=== PATIENT | male | born 1940 | race Caucasian/White ===

== ENCOUNTER 2016-09-08 02:49 | Emergency (ER) | payer OTHER, MEDICARE ==
[~2016-09-08 02:49] MED LIST: ATORVASTATIN CA80 MG PO; BACLOFEN10 M1 PO; BETIMOL 5 ML5 M1 OPH; CEFUROXIME500 MG PO; CIPRO 500MG TA500 MG PO; CIPRO250 M1 PO; CIPRO500 M1 PO; METFORMIN ER500 MG PO; PRINIVIL 5MG5 MG PO; TRIGINTA; VITAMIN D-3
--- NOTE | 2016-09-08 03:09 | ED GI/GU/ABDOMINAL COMPLAINT ---
History of Present Illness General Chief Complaint: Male Genitourinary Problems Stated Complaint: UNABLE TO URINATE HAS TORRES X'S 1 MTH Source: patient Exam Limitations: no limitations Vital Signs & Intake/Output Vital Signs & Intake/Output Vital Signs Date Time Temp Pulse Resp B/P B/P Pulse O2 O2 Flow FiO2 Mean Ox Delivery Rate 09/08 0438 97.0 58 18 135/72 99 Room Air 09/08 0325 142/76 09/08 0259 96.2 53 18 99 Allergies Coded Allergies: NO KNOWN ALLERGIES (01/16/16) Reconcile Medications Atorvastatin Calcium 80 MG TABLET 1 TAB PO DAILY CHOLESTEROL (Reported) Bethanechol Chloride 25 MG TABLET 1 TAB PO TID BLADDER (Reported) Cefuroxime Axetil (Cefuroxime) 500 MG TABLET 1 TAB PO BID urinary tract infection Finasteride 5 MG TABLET 1 TAB PO DAILY BPH (Reported) Linagliptin (Tradjenta) 5 MG TABLET 1 TAB PO DAILY DM (Reported) Metformin HCl 1,000 MG TABLET 1 TAB PO BID DM (Reported) Tamsulosin HCl 0.4 MG CAP.ER.24H 1 CAP PO DAILY BPH (Reported) Timolol Maleate 0.5 % DROPS 1 GTT OPH BID (Reported) Triage Nurses Notes Reviewed? yes Onset: Gradual Duration: hour(s): Timing: single episode today Quality/Severity: cramping Location: suprapubic Radiation: no radiation Activities at Onset: none Prior Abdominal Problems: similar symptoms Modifying Factors: Worsens With: other (unable to urinate). Associated Symptoms: unable to urinate HPI: 76 yo gentleman with indwelling torres presents with feeling of lower abdominal pressure Past History Medical History Any Pertinent Medical History? 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 No Review of Systems Review of Systems Constitutional: Denies: see HPI. EENTM: Reports: no symptoms. Respiratory: Reports: no symptoms. Cardiovascular: Reports: no symptoms. GI: Reports: no symptoms. Genitourinary: Reports: no symptoms. Musculoskeletal: Reports: no symptoms. Skin: Reports: no symptoms. Neurological/Psychological: Reports: no symptoms. Hematologic/Endocrine: Reports: no symptoms. Immunologic/Allergic: Reports: no symptoms. All Other Systems: Reviewed and Negative Physical Exam Physical Exam General Appearance: well developed/nourished, mild distress Head: atraumatic, normal appearance Eyes: Bilateral: normal appearance. Ears, Nose, Throat, Mouth: hearing grossly normal Neck: normal inspection, supple, full range of motion Respiratory: normal breath sounds, chest non-tender, no respiratory distress, quiet respiration, lungs clear Cardiovascular: regular rate/rhythm Gastrointestinal: normal bowel sounds, soft, non-tender, no organomegaly Male Genitals: normal genitalia Back: normal inspection Extremities: normal range of motion Neurologic/Psych: no motor/sensory deficits, awake, alert, oriented x 3 Skin: intact, normal color, warm/dry Core Measures ACS in differential dx? No Severe Sepsis Present: No Septic Shock Present: No Progress Differential Diagnosis: UTI/pyelo, torres issue Plan of Care: Orders Procedure Date/time Status Torres, Insertion/Removal/Asses 09/08 025 Active CULTURE,URINE 09/08 025 Active URINALYSIS 09/08 254 Complete Laboratory Tests 09/08/16 0326: Urine Color YEL, Urine Clarity CLDY H, Urine pH 7.0, Ur Specific [place] 1.020, Urine Protein 30 H, Urine Ketones NEG, Urine Nitrite POS H, Urine Bilirubin NEG, Urine Urobilinogen 0.2, Ur Leukocyte Esterase MOD H, Ur Microscopic SEDIMENT EXAMINED, Urine RBC 25-50 H, Urine WBC 25-50 H, Urine Bacteria MANY H, Urine Hemoglobin LARGE H, Urine Glucose NEG Microbiology 09/08 0326 URINE ROUT: Urine Culture - RECD Initial ED EKG: none Departure Departure Disposition: HOME OR SELF CARE Condition: Stable Clinical Impression Primary Impression: Torres catheter problem Secondary Impressions: UTI (urinary tract infection) Referrals: LIA NASH MD (PCP/Family) Departure Forms: Customer Survey General Discharge Information Prescriptions: Current Visit Scripts Cefuroxime Axetil (Cefuroxime) 1 TAB PO BID #20 TAB Comments discussed at length... pt's torres replaced and is draining freely... pt feels well at discharge and has follow up with dr. kelsey... abx prescribed for infected looking urinalysis.
[2016-09-08] MEDS ORDERED: BETHANECHOL CHL25 M1 PO (03:12)
[2016-09-08] MEDS ORDERED: TIMOLOL MALEATE5 M4 OPH (03:12)
[2016-09-08] MEDS ORDERED: METFORMIN HCL1000 M1 PO (03:13)
[2016-09-08] MEDS ORDERED: FINASTERIDE5 M1 PO (03:13)
[2016-09-08] MEDS ORDERED: TAMSULOSIN HCL0.4 M1 PO (03:13)
[2016-09-08] MEDS ORDERED: ATORVASTATIN CA80 M1 PO (03:13)
[2016-09-08] MEDS ORDERED: TRADJENTA5 M1 PO (03:13)
[2016-09-08] MEDS ORDERED: CEFUROXIME500 MG PO (04:10)
[2016-09-08 04:38] VITALS: BP 135/72
[2016-11-02] MEDS ORDERED: VITAMIN D31000 UNI2 PO (22:15)
[2016-11-02] MEDS ORDERED: BETHANECHOL CHL25 M1 PO (22:15)
[2016-11-02] MEDS ORDERED: BACLOFEN10 M1 PO (22:16)
[2016-11-02] MEDS ORDERED: VITAMIN B-121000 MC3 PO (22:17)
[2016-11-02] MEDS ORDERED: CIPRO500 M1 PO (23:47)
== END 2016-09-08 04:38 ==
LOC: ERH 02:49
DX: T83.098A Other mechanical complication of other urinary catheter, initial encounter (principal); N39.0 Urinary tract infection, site not specified
CPT/HCPCS: 81001; 87086

== ENCOUNTER → 2016-11-03 | Day surgery (SDC) | payer OTHER, MEDICARE ==
[~2016-11-03] VITALS: Ht 180.3 cm; Wt 81.6 kg
[~2016-11-03] MED LIST changes: +ATORVASTATIN CA80 M1 PO; +BETHANECHOL CHL25 M1 PO; +FINASTERIDE5 M1 PO; +METFORMIN HCL1000 M1 PO; +TAMSULOSIN HCL0.4 M1 PO; +TIMOLOL MALEATE5 M4 OPH; +TRADJENTA5 M1 PO; +VITAMIN B-121000 MC3 PO; +VITAMIN D31000 UNI2 PO
--- NOTE | 2016-11-03 08:45 | ED GENERAL ADULT ---
History of Present Illness General Chief Complaint: Male Genitourinary Problems Stated Complaint: CATH LEAKING/DIZZINESS Source: patient, family, old records, PCP Exam Limitations: no limitations Vital Signs & Intake/Output Vital Signs & Intake/Output Vital Signs Date Time Temp Pulse Resp B/P B/P Pulse O2 O2 Flow FiO2 Mean Ox Delivery Rate 11/03 0933 97.2 72 20 117/69 97 Room Air 11/03 0846 95.0 76 18 125/71 96 Room Air Allergies Coded Allergies: NO KNOWN ALLERGIES (01/16/16) Reconcile Medications Atorvastatin Calcium 80 MG TABLET 1 TAB PO DAILY CHOLESTEROL (Reported) Baclofen 10 MG TABLET 1 TAB PO PRN MUSCLE SPASMS (Reported) Bethanechol Chloride 25 MG TABLET 0.5 TAB PO BID BLADDER (Reported) Cholecalciferol (Vitamin D3) 1,000 UNIT TABLET 1 TAB PO DAILY SUPPLEMENT ( Reported) Ciprofloxacin HCl (Cipro) 500 MG TABLET 1 TAB PO BID UTI Cyanocobalamin (Vitamin B-12) (Unknown Strength) TABLET (Unknown Dose) PO DAILY SUPPLEMENT (Reported) Finasteride 5 MG TABLET 1 TAB PO DAILY BPH (Reported) Linagliptin (Tradjenta) 5 MG TABLET 1 TAB PO DAILY DM (Reported) Metformin HCl 1,000 MG TABLET 1 TAB PO BID DM (Reported) Tamsulosin HCl 0.4 MG CAP.ER.24H 1 CAP PO BID BPH (Reported) Timolol Maleate 0.5 % DROPS 1 GTT OPH DAILY BOTH EYES (Reported) Triage Nurses Notes Reviewed? yes HPI: Patient was seen last night with a full catheter problem. The catheter was changed. Patient was sent home. After being at home patient had increasing suprapubic pain and discomfort. The pain is a pressure sensation. There is no radiation. There are no aggravating or mitigating factors. Patient states at 2 AM he also had an episode of substernal chest pain. The pain lasted approximately 3 minutes and then went away on its own. There is no shortness of breath. There is no radiation. There are no aggravating or mitigating factors. Patient called his urologist and was instructed to come to the emergency department for evaluation. Upon arrival to triage he suddenly felt very lightheaded and like he was given a pass out. Patient was sat down and the symptoms all resolved. Patient is currently only complaint is the suprapubic pressure sensation which he rates at 6 out of 10. Past History Medical History Any Pertinent Medical History? 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 No Review of Systems Review of Systems Constitutional: Reports: no symptoms. EENTM: Reports: no symptoms. Respiratory: Reports: no symptoms. Cardiovascular: Reports: see HPI, chest pain. GI: Reports: see HPI, abdominal pain. Genitourinary: Reports: no symptoms. Musculoskeletal: Reports: no symptoms. Skin: Reports: no symptoms. Neurological/Psychological: Reports: no symptoms. Hematologic/Endocrine: Reports: no symptoms. Immunologic/Allergic: Reports: no symptoms. All Other Systems: Reviewed and Negative Physical Exam Physical Exam General Appearance: well developed/nourished, alert, awake, anxious, moderate distress Head: atraumatic Eyes: Bilateral: PERRL, EOMI. Ears, Nose, Throat: normal pharynx, normal ENT inspection Neck: normal inspection, supple, full range of motion Respiratory: normal breath sounds, chest non-tender, no respiratory distress, lungs clear Cardiovascular: regular rate/rhythm, normal peripheral pulses Gastrointestinal: normal bowel sounds, soft, no organomegaly, tenderness ( SUPRAPUBIC) Extremities: normal inspection, normal capillary refill, normal range of motion Neurologic/Psych: no motor/sensory deficits, awake, alert Skin: intact, normal color, warm/dry Core Measures ACS in differential dx? No CVA/TIA Diagnosis: No Severe Sepsis Present: No Septic Shock Present: No Progress Differential Diagnoses I considered the following diagnoses in my evaluation of the patient: [AMI, NEAR SYNCOPE, TORRES CATH PROBLEM] Plan of Care: Orders Procedure Date/time Status Telemetry/Sales Representative Jewelry 11/03 0845 Active TROPONIN LEVEL 11/03 0845 Complete COMPREHENSIVE METABOLIC PANEL 11/03 0845 Complete CBC WITHOUT DIFFERENTIAL 11/03 0845 Complete EKG 11/03 0837 Active Laboratory Tests 11/03/16 0905: Anion Gap 10, Estimated GFR > 60, BUN/Creatinine Ratio 24.4, Glucose 92, Calcium 9.0, Total Bilirubin 0.5, AST 25, ALT 33, Alkaline Phosphatase 85, Troponin I < 0.01, Total Protein 5.7 L, Albumin 3.1 L, Globulin 2.6, Albumin/Globulin Ratio 1.2, CBC w Diff NO MAN DIFF REQ, RBC 4.61 L, MCV 87.7, MCH 29.1, RDW 14.6 H, MPV 7.4, Gran % 78.2 H, Lymphocytes % 10.6 L, Monocytes % 7.8, Eosinophils % 3.3, Basophils % 0.1, Absolute Granulocytes 7.2 H, Absolute Lymphocytes 1.0 L, Absolute Monocytes 0.7 H, Absolute Eosinophils 0.3, Absolute Basophils 0, PUBS MCHC 33.2 Initial ED EKG: NSR, nonspecific ST T wave chg Prior EKG: unchanged Departure Departure Disposition: STILL A PATIENT Condition: Stable Clinical Impression Primary Impression: Torres catheter problem Qualifiers: Encounter type: subsequent encounter Qualified Code: T83.9XXD - Unspecified complication of genitourinary prosthetic device, implant and graft, subsequent encounter Secondary Impressions: Chest pain, unspecified Qualifiers: Chest pain type: unspecified Qualified Code: R07.9 - Chest pain, unspecified Near syncope Referrals: LIA NASH MD (PCP/Family) Departure Forms: Customer Survey General Discharge Information OR/GI Note Spoke With: AGUSTINA PEPE MD ED Treatment Decision: GORDY DUNCAN requires urgent operative management or an emergent procedure that cannot be performed in the Emergency Room setting. Transport To: [facility] Critical Care Note Critical Care Note Critical Care Time: non-applicable
--- NOTE | 2016-11-03 09:19 | Cons- Urology ---
General Information and HPI Consulting Request Date of Consult: 11/03/16 Requested By: md lakeshia, bruce- Reason for Consult: urnary retention Source of Information: patient, family Exam Limitations: no limitations History of Present Illness: 76 year old with dementia, BPH-retention despite TURP: had seen in ER last night with hummel dysfunction: returns today again in severe retention: i am unable to pass hummel at bedside and pt in retention for >12 hours with extreme pain. EMERGENCY cystoscopy necessary for catheter placement and evaluation. Of note, pt with extreme pain at 2am due to retention and reported generalized CP and abd pain-no SOB/NO NV/No rigors. Allergies/Medications Allergies: Coded Allergies: NO KNOWN ALLERGIES (01/16/16) Home Med List: Atorvastatin Calcium 80 MG TABLET 1 TAB PO DAILY CHOLESTEROL (Reported) Baclofen 10 MG TABLET 1 TAB PO PRN MUSCLE SPASMS (Reported) Bethanechol Chloride 25 MG TABLET 0.5 TAB PO BID BLADDER (Reported) Cholecalciferol (Vitamin D3) 1,000 UNIT TABLET 1 TAB PO DAILY SUPPLEMENT ( Reported) Ciprofloxacin HCl (Cipro) 500 MG TABLET 1 TAB PO BID UTI Cyanocobalamin (Vitamin B-12) (Unknown Strength) TABLET (Unknown Dose) PO DAILY SUPPLEMENT (Reported) Finasteride 5 MG TABLET 1 TAB PO DAILY BPH (Reported) Linagliptin (Tradjenta) 5 MG TABLET 1 TAB PO DAILY DM (Reported) Metformin HCl 1,000 MG TABLET 1 TAB PO BID DM (Reported) Tamsulosin HCl 0.4 MG CAP.ER.24H 1 CAP PO BID BPH (Reported) Timolol Maleate 0.5 % DROPS 1 GTT OPH DAILY BOTH EYES (Reported) Past History Medical History Neurological: multiple sclerosis, SHORT TERM MEMORY LOSS EENT: glaucoma, TONSILLECTOMY Cardiovascular: hyperlipidemia Respiratory: NONE Gastrointestinal: NONE Hepatic: NONE Renal: UTI Musculoskeletal: osteoarthritis Psychiatric: NONE Endocrine: diabetes Blood Disorders: NONE Cancer(s): prostate cancer 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 Ambulation: independent IADLs Independent: housework, food prep, telephone, medication admin. Employment History Employment: Retired Retired? yes Review of Systems Review of Systems: n/c x12 except above Review of Systems Constitutional: Denies: no symptoms. EENTM: Denies: no symptoms. Cardiovascular: Reports: see HPI. Respiratory: Denies: no symptoms. GI: Denies: no symptoms. Genitourinary: Reports: discharge, dysuria, hematuria, pain. Musculoskeletal: Denies: no symptoms. Skin: Denies: no symptoms. Hematologic/Endocrine: Denies: no symptoms. Exam & Diagnostic Data Vital Signs and I&O Vital Signs Date Time Temp Pulse Resp B/P B/P Pulse O2 O2 Flow FiO2 Mean Ox Delivery Rate 11/03 0846 95.0 76 18 125/71 96 Room Air Intake & Output 11/03 1600 11/03 0800 11/03 0000 11/02 1600 11/02 0800 11/02 0000 Intake Total Output Total Balance Patient 180 lb Weight Weight Reported by Patient Measurement Method Physical Exam General Appearance: well developed/nourished, severe distress Head: atraumatic Eyes: Bilateral: normal appearance. Ears, Nose, Throat: normal pharynx Neck: normal inspection Respiratory: normal breath sounds Cardiovascular: regular rate/rhythm Gastrointestinal: normal bowel sounds, distention Back: no vertebral tenderness Extremities: normal inspection Skin: intact, normal color, warm/dry Reproductive: Normal male genitalia Last 24 Hours of Labs: Laboratory Tests 11/03 0905 Chemistry Sodium Pending Potassium Pending Chloride Pending Carbon Dioxide Pending Anion Gap Pending BUN Pending Creatinine Pending BUN/Creatinine Ratio Pending Glucose Pending Calcium Pending Total Bilirubin Pending AST Pending ALT Pending Alkaline Phosphatase Pending Troponin I Pending Total Protein Pending Albumin Pending Globulin Pending Albumin/Globulin Ratio Pending Hematology CBC w Diff Pending WBC Pending RBC Pending Hgb Pending Hct Pending MCV Pending MCH Pending RDW Pending Plt Count Pending MPV Pending PUBS MCHC Pending Assessment/Plan Assessment/Plan urinary retention and unable to pass hummel-requires emergency cysto-hummel insert. Copies To: AGUSTINA PEPE MD Consult Acknowledgment - Thank you for your consult request. Attending MD Review Statement Attending Statement Attending MD Statement: examined this patient, discuss w/resident/PA/PHYSICAL THERAPY TECHNICIAN Attending Assessment/Plan: emergency cysto.
[2016-11-03 09:32] LABS: ABSOLUTE BASOPHIL COUNT 0 /CUMM (0.0-0.2); ABSOLUTE EOSINOPHIL COUNT 0.3 /CUMM (0.0-0.7); ABSOLUTE GRANULOCYTE CT 7.2 /CUMM (1.4-6.5); ABSOLUTE MONOCYTE COUNT 0.7 /CUMM (0.10-0.60); BASOPHIL % 0.1 % (0.0-2.0); EOSINOPHIL % 3.3 % (0-5); GRANULOCYTE % 78.2 % (42.2-75.2); HEMATOCRIT 40.5 % (42-52); MEAN CORPUSCULAR HGB 29.1 PG (27.0-31.0); MEAN CORPUSCULAR HGB CONC 33.2 G/DL (33.0-37.0); MEAN CORPUSCULAR VOLUME 87.7 FL (80.0-94.0); MEAN PLATELET VOLUME 7.4 FL (7.4-10.4); PLATELET COUNT 264 /CUMM (130-400); RBC DISTRIBUTION WIDTH 14.6 % (11.5-14.5); RED BLOOD CELL CT 4.61 /CUMM (4.70-6.10); WHITE BLOOD CELL COUNT 9.2 /CUMM (4.8-10.8)
[2016-11-03 09:33] VITALS: BP 117/69
--- NOTE | 2016-11-03 11:29 | Operative Report ---
Operative/Inv Procedure Report Surgery Date: 11/03/16 Name of Procedure: difficult hummel insertion Pre-Operative Diagnosis: catheter dysfunction with retention and Post-Operative Diagnosis: same Estimated Blood Loss: none Surgeon/Lithographic Press Operator Apprentice: MD AGUSTINA PEPE-Urology Anesthesia: general endotracheal tube Drains: 20fr coucil tip hummel Complications: none Operative/Procedure Note Note: The patient was taken to the operative room and placed on the OR table in supine position. Timeout was performed in order to confirm the patient's identity, procedure, anesthesia, antibiotics, as well as any other pertinent information. After adequate anesthesia, and antibiotics, the patient was then placed lithotomy stirrups draped and prepped in the usual surgical fashion. A 22 Citizen [place] cystoscope sheath with a 30 angle lens was inserted into the urethra and advanced into the bladder without difficulty. The bladder was noted to have the findings as discussed above. The bladder was then hydrodistended 2 with the irrigation fluid at 40 cm above the symphysis pubis. No evidence of tumor, increased petechiae, nor Hunner's ulceration was noted. Both ureteral orifices had clear reflux in their orthotopic position. No terminal bleed with drainage. Bladder capacity was normal. The bladder was then drained and the cystoscope was removed under direct visualization. The patient tolerated procedure well and was taken to recovery room in satisfactory condition. Findings: XRT scarred prostate firm: narrow passage Discharge Disposition: PACU CC: AGUSTINA PEPE MD
== END ==
LOC: ERH 08:34 → STS 10:43 → ERH 10:44
PROVIDERS: Emergency Medicine
DX: T83.098A Other mechanical complication of other urinary catheter, initial encounter (principal); R33.8 Other retention of urine; G35 Multiple sclerosis
CPT/HCPCS: 93005; 93010; J0131; J1100; J1170; J2250; J2405; J3010

== ENCOUNTER 2017-11-04 12:45 | Inpatient (IN) | payer OTHER, MEDICARE ==
[~2017-11-04] VITALS: Ht 167.6 cm; Wt 83.0 kg
[~2017-11-04 12:45] MED LIST changes: +AUGMENTIN 875-1 EACH PO; +PYRIDIUM200 M1 PO
--- NOTE | 2017-11-04 13:19 | ED AMS/SEIZURE/WEAK/DIZZY ---
See Addendum History of Present Illness General Chief Complaint: General Adult Stated Complaint: BIBA FOR ?SEPTIC Source: patient Exam Limitations: no limitations Allergies Coded Allergies: NO KNOWN ALLERGIES (01/16/16) Reconcile Medications Amoxicillin/Potassium Clav (Augmentin 875-125 Tablet) 875 MG-125 MG TABLET 1 TAB PO BID UTI Amoxicillin/Potassium Clav (Augmentin 875-125 Tablet) 875 MG-125 MG TABLET 1 TAB PO BID UTI Atorvastatin Calcium 80 MG TABLET 1 TAB PO DAILY CHOLESTEROL (Reported) Baclofen 10 MG TABLET 1 TAB PO PRN MUSCLE SPASMS (Reported) Bethanechol Chloride 25 MG TABLET 0.5 TAB PO BID BLADDER (Reported) Cholecalciferol (Vitamin D3) 1,000 UNIT TABLET 1 TAB PO DAILY SUPPLEMENT ( Reported) Ciprofloxacin HCl (Cipro) 500 MG TABLET 1 TAB PO BID UTI Cyanocobalamin (Vitamin B-12) (Unknown Strength) TABLET (Unknown Dose) PO DAILY SUPPLEMENT (Reported) Finasteride 5 MG TABLET 1 TAB PO DAILY BPH (Reported) Linagliptin (Tradjenta) 5 MG TABLET 1 TAB PO DAILY DM (Reported) Metformin HCl 1,000 MG TABLET 1 TAB PO BID DM (Reported) Phenazopyridine HCl (Pyridium) 200 MG TABLET 1 TAB PO TID PAIN Phenazopyridine HCl (Pyridium) 200 MG TABLET 1 TAB PO TID DYSUIRA Tamsulosin HCl 0.4 MG CAP.ER.24H 1 CAP PO BID BPH (Reported) Timolol Maleate 0.5 % DROPS 1 GTT OPH DAILY BOTH EYES (Reported) Triage Note: RECEIVED 77 YO MALE BIBA FROM HOME WITH HX OF M.S. AND SHORT TERM MEMORY LOSS. ACCORDING TO REPORT, PT HAS BEEN LETHARGIC THE LAST FEW DAYS WITH DECREASED RESPONSIVENESS. PT APPEARS SLEEPY UPON ARRIVAL, RESPONDS TO BASIC QUESTIONS. PT ARRIVES WITH 18 G IN LAC AND RECEIVED 500 ML N/S IV IN FIELD BY PARAMEDICS. Triage Nurses Notes Reviewed? yes Onset: Abrupt Duration: day(s): (2), constant Timing: recent history Injury Environment: home No Modifying Factors: none HPI: 77-year-old male comes into the emergency room for further evaluation of increased weakness. Patient has a history of multiple sclerosis. He had some loose stools today. Profoundly weak to the point where he can't ambulate which is below his normal baseline of function. No reports of fever or vomiting. He denies any chest pain shortness of breath abdominal pain. No recent antibiotics. He was brought in by ambulance for further evaluation (Kyree Scruggs) Vital Signs & Intake/Output Vital Signs & Intake/Output Vital Signs Date Time Temp Pulse Resp B/P B/P Pulse O2 O2 Flow FiO2 Mean Ox Delivery Rate 11/04 1621 97.3 96 18 95/54 93 Room Air 11/04 1517 96 115/57 / 1417 99.9 93 16 88/56 93 Room Air 11/04 1346 92 20 92/61 93 Room Air 11/04 1254 98.8 94 18 99/58 92 Room Air (Shanta GRAHAM,Noah Gupta) Past History Travel History Traveled to [place] past 21 day No Medical History Any Pertinent Medical History? 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 No (Kyree Scruggs) Review of Systems Review of Systems Constitutional: Reports: see HPI. EENTM: Reports: no symptoms. Respiratory: Reports: no symptoms. Cardiovascular: Reports: no symptoms. GI: Reports: see HPI. Genitourinary: Reports: no symptoms. Musculoskeletal: Reports: no symptoms. Skin: Reports: no symptoms. Neurological/Psychological: Reports: see HPI. Hematologic/Endocrine: Reports: no symptoms. Immunologic/Allergic: Reports: no symptoms. All Other Systems: Reviewed and Negative (Kyree Scruggs) Physical Exam Physical Exam General Appearance: alert, awake, lethargic Head: atraumatic Ears, Nose, Throat: normal ENT inspection Neck: normal inspection Respiratory: normal breath sounds, no respiratory distress Cardiovascular: regular rate/rhythm Gastrointestinal: soft, non-tender Extremities: normal range of motion, NO EDEMA Neurologic/Psych: normal gait, normal mood/affect Skin: intact, normal color Core Measures ACS in differential dx? No CVA/TIA Diagnosis No Sepsis Present: No Sepsis Focused Exam Completed? No (Kyree Scruggs) Progress Differential Diagnosis: arrythmia, anemia, benign positional vertigo, CVA/stroke , dehydration, encephalitis, electrolyte imbalance, sepsis, UTI/pyelo, C DIFF Diagnostic Imaging: Viewed by Me: Radiology Read, CT Scan. Discussed w/RAD: Radiology Read, CT Scan. Radiology Impression: PATIENT: GORDY DUNCAN PRESENT AGE: 77 PATIENT ACCOUNT NO: [id number] : 42 LOCATION: [facility] ORDERING PHYSICIAN: Kyree PEREZ SERVICE DATE: 11/04/17 EXAM TYPE : RAD - XRY-PORTABLE CHEST XRAY EXAMINATION: XR PORTABLE CHEST CLINICAL INFORMATION: Weakness and hypotension. COMPARISON: Chest x-ray dated 01/11/2006. TECHNIQUE: Portable AP semierect view of the chest was obtained. FINDINGS: External EKG leads overlie the chest. The cardiomediastinal silhouette is within normal limits in size. Low lung volumes are seen with crowding of bronchovascular markings in the lung bases bilaterally with associated bibasilar atelectatic change. No focal consolidation, effusion, pneumothorax is seen. Bony structures are unremarkable. IMPRESSION: Low lung volumes with bibasilar atelectatic changes. DICTATED BY: Chyna Verdugo MD DATE/TIME DICTATED:1406 GEAR CUTTING MACHINE OPERATOR:STEVE DATE/TIME TRANSCRIBED:11/04/171406 CONFIDENTIAL, DO NOT COPY WITHOUT APPROPRIATE AUTHORIZATION. <Electronically signed in Other Vendor System> SIGNED BY: Chyna Verdugo MD 11/04/17 1413 Initial ED EKG: normal sinus rhythm, rate (92) (Kyree Scruggs) Plan of Care: Orders Procedure Date/time Status Nothing by Mouth 11/05 B Active LACTIC ACID 11/04 1610 Active Misc Message 11/04 1608 Active ED Holding Orders 11/04 1608 Active Admit to inpatient 11/04 1608 Active Vital Signs 11/04 1608 Active Code Status 11/04 1608 Active CULTURE,STOOL 11/04 1422 Active C.DIFFICILE 11/04 1422 Active CULTURE,URINE 11/04 1421 Active BLOOD CULTURE 11/04 1310 Active URINE DRUGS OF ABUSE 11/04 1310 Active URINALYSIS 11/04 1310 Complete TROPONIN LEVEL 11/04 1310 Complete LACTIC ACID 11/04 1310 Complete COMPREHENSIVE METABOLIC PANEL 11/04 1310 Complete CBC WITHOUT DIFFERENTIAL 11/04 131 Complete EKG 11/04 131 Active Laboratory Tests 11/04/17 1600: Urine Color YEL, Urine Clarity TURBD H, Urine pH 8.5 H, Ur Specific Streetman 1.010, Urine Protein 100 H, Urine Ketones NEG, Urine Nitrite POS H, Urine Bilirubin NEG, Urine Urobilinogen 1.0, Ur Leukocyte Esterase LARGE H, Ur Microscopic SEDIMENT EXAMINED, Urine RBC >75 H, Urine WBC 1-3 H, Ur Epithelial Cells RARE, Urine Bacteria PACKD H, Urine Hemoglobin LARGE H, Urine Glucose NEG 11/04/17 1315: Anion Gap 13, Estimated GFR 42 L, BUN/Creatinine Ratio 18.1, Glucose 153 H, Lactic Acid 6.0 H, Calcium 8.9, Total Bilirubin 0.4, AST 114 H, ALT 84 H, Alkaline Phosphatase 76, Troponin I 1.10 *H, Total Protein 5.4 L, Albumin 2.8 L, Globulin 2.6, Albumin/Globulin Ratio 1.1, CBC w Diff MAN DIFF ORDERED, RBC 4.91, MCV 87.1, MCH 28.5, MCHC 32.7 L, RDW 16.4 H, MPV 7.7, Gran % 97.1 H, Lymphocytes % 2.5 L, Monocytes % 0.4 L, Eosinophils % 0, Basophils % 0, Absolute Granulocytes 13.9 H, Segmented Neutrophils 82 H, Band Neutrophils 12 H, Absolute Lymphocytes 0.4 L, Lymphocytes 4 L, Monocytes 2, Absolute Monocytes 0.1, Absolute Eosinophils 0, Absolute Basophils 0, Platelet Estimate ADEQUATE, Normocytic RBCs VERIFIED, Normochromic RBCs VERIFIED Microbiology 11/04 1600 URINE ROUT: Urine Culture - RECD 11/04 1504 BLOOD: Blood Culture - RECD 11/04 1422 STOOL: Clostridium difficile Toxin A & B - ORD 11/04 1422 STOOL: Stool Culture - ORD 11/04 1315 BLOOD: Blood Culture - RECD (Shanta GRAHAM,Noah Gupta) Departure Departure Disposition: STILL A PATIENT Condition: Stable Clinical Impression Primary Impression: Sepsis Secondary Impressions: Elevated troponin Referrals: Jj Franklin MD (PCP/Family) Departure Forms: Customer Survey General Discharge Information Admission Note Spoke With: Arley Bey MD Documentation of Exam: Documentation of any treatments & extenuating circumstances including Concerns Regarding Discharge (functional status, medication knowledge or non-compliance, living conditions, etc.) that warrant an admission rather than observation: Patient will require IV fluids. IV antibiotics. Cardiac telemetry. Serial labs. Critical care management. High risk. Medically not safe for discharge. Cardiology consultation. Infectious disease consultation. (Kyree Scruggs) PA/DERRICK BOAT LEVERMAN Co-Sign Statement Statement: ED Attending supervision documentation- [x] 11/04/2017 3:38:19 PM I saw and evaluated the patient. I have also reviewed all the pertinent lab results and diagnostic results. I agree with the findings and the plan of care as documented in the PA's/DERRICK BOAT LEVERMAN's documentation. Patient presents for evaluation of lethargy and possible infection. Physical examination after IV fluids and normalization of blood pressure reveals an alert and conversant gentleman without specific complaint. His color is good. Heart tones are normal. Patient has normal radial pulses and warm and well-perfused lower extremities. [] I have reviewed the ED Record and agree with the PA's/DERRICK BOAT LEVERMAN's documentation. [] Additions or exceptions (if any) to the PAs/DERRICK BOAT LEVERMAN's note and plan are summarized below: [] (Shanta GRAHAM,Noah Gupta) ED Sepsis Exam Date of Focused Sepsis Exam: 11/04/17 Time of Focused Sepsis Exam: 1400 Sepsis Cardiac Exam: Regular Rate/Rhythm Sepsis Resp Exam: CTA Sepsis Cap Refill Exam: <2 Sec Sepsis Peripheral Pulse Exam: Weak Sepsis Peripheral Pulse Location: Radial Sepsis Skin Color Exam: Normal for Ethnicity Skin Temp/Moisture Exam: Cool/Dry (Kyree Scruggs)
[2017-11-04 13:25] LABS: ABSOLUTE BASOPHIL COUNT 0 /CUMM (0.0-0.2); ABSOLUTE EOSINOPHIL COUNT 0 /CUMM (0.0-0.7); ABSOLUTE GRANULOCYTE CT 13.9 /CUMM (1.4-6.5); ABSOLUTE LYMPH COUNT 0.4 /CUMM (1.2-3.4); ABSOLUTE MONOCYTE COUNT 0.1 /CUMM (0.10-0.60); BASOPHIL % 0 % (0.0-2.0); EOSINOPHIL % 0 % (0-5); GRANULOCYTE % 97.1 % (42.2-75.2); HEMATOCRIT 42.8 % (42-52); MEAN CORPUSCULAR HGB 28.5 PG (27.0-31.0); MEAN CORPUSCULAR HGB CONC 32.7 G/DL (33.0-37.0); MEAN CORPUSCULAR VOLUME 87.1 FL (80.0-94.0); MEAN PLATELET VOLUME 7.7 FL (7.4-10.4); PLATELET COUNT 226 /CUMM (130-400); RBC DISTRIBUTION WIDTH 16.4 % (11.5-14.5); RED BLOOD CELL CT 4.91 /CUMM (4.70-6.10); WHITE BLOOD CELL COUNT 14.3 /CUMM (4.8-10.8)
--- NOTE | 2017-11-04 14:13 | RADIOLOGY REPORT ---
EXAMINATION: XR PORTABLE CHEST CLINICAL INFORMATION: Weakness and hypotension. COMPARISON: Chest x-ray dated 01/11/2006. TECHNIQUE: Portable AP semierect view of the chest was obtained. FINDINGS: External EKG leads overlie the chest. The cardiomediastinal silhouette is within normal limits in size. Low lung volumes are seen with crowding of bronchovascular markings in the lung bases bilaterally with associated bibasilar atelectatic change. No focal consolidation, effusion, pneumothorax is seen. Bony structures are unremarkable. IMPRESSION: Low lung volumes with bibasilar atelectatic changes.
--- NOTE | 2017-11-04 16:16 | CT SCAN REPORT ---
EXAMINATION: CT ABDOMEN AND PELVIS WITHOUT CONTRAST CLINICAL INFORMATION: Diarrhea. Rule out colitis. COMPARISON: None. TECHNIQUE: Multidetector volumetric imaging was performed from the superior aspect of the liver through the pubic symphysis. Sagittal and coronal reformatted images were obtained on the technologist workstation. DLP: 391.62 mGy-cm. FINDINGS: LUNG BASES: Bibasilar atelectatic changes are seen. Lungs are otherwise unremarkable. A densely calcified pericardial lymph node is seen. Moderate coronary artery calcifications are noted. LIVER, GALLBLADDER, AND BILIARY TREE: The liver is normal in size, shape, and attenuation. There is a 1.3 cm diameter fluid attenuation mass in the left lobe of the liver, adjacent to the gallbladder (series 2, image 26, segment 4B), consistent with a cyst. No suspicious focal hepatic lesion on noncontrast imaging. No biliary ductal dilatation is present. The gallbladder is hydropic, measuring 5.3 cm transversely and approximately 9 cm longitudinally. There is no evidence of radiopaque gallstones, gallbladder wall thickening, or obvious pericholecystic inflammatory changes. PANCREAS: Unremarkable on noncontrast imaging. SPLEEN, ADRENAL GLANDS: Unremarkable on noncontrast imaging. KIDNEYS AND URETERS: The kidneys are normal in size, shape, and attenuation. There are bilateral cysts, including an exophytic upper pole right renal 2.3 cm diameter cyst with partial mural calcifications, a large approximately 5 cm diameter parapelvic mid left renal cyst, a 2.3 cm partially exophytic cortical cyst in the mid left kidney, subtle 1 cm diameter cortical cyst in the upper pole of the left kidney and a 3 cm cortical cyst in the mid left kidney. There is a nonobstructing 0.4 cm mid right renal calcification, a 0.6 cm mid left renal calcification and a 0.8 cm mid left renal calcification. There is mild bilateral hydronephrosis and prominent bilateral perinephric stranding and thickening of Gerota's fascia seen. The ureters bilaterally are mildly dilated and tortuous in their course to the bladder. No definite ureteral calculi are seen. BLADDER: Bladder is well distended and demonstrates a Contreras catheter in its inferior and dependent base. PELVIC VISCERA: Multiple radiation seed implants are seen within the prostate gland. Seminal vesicles bilaterally are symmetric. GASTROINTESTINAL TRACT: Small and large bowel loops are decompressed and unremarkable. No evidence of acute colitis or bowel obstruction or perforation is seen. ABDOMINAL WALL: No significant hernia is appreciated. LYMPH NODES, VASCULAR: There are scattered subcentimeter sized retroperitoneal and mesenteric lymph nodes without pathologic enlargement. Abdominal aorta is normal in caliber and demonstrates moderate atherosclerotic calcifications, which also involve several of the branch vessels, including the celiac axis, SMA, and both renal arteries, left greater than right. There is also ectasia/aneurysmal dilatation of the celiac axis and the SMA. OSSEOUS STRUCTURES: A vertebral hemangioma is partially included in the right side of the T8 vertebral body. There is a S-shaped thoracolumbar scoliosis. Severe degenerative disc disease is seen throughout the lumbosacral spine with relative sparing of the L4-L5 level. IMPRESSION: 1. Mild bilateral hydroureteronephrosis is seen all the way down to the bladder with no definite obstructing stone or mass seen. Bladder is significantly distended, despite Contreras catheter. Findings may be related to chronic vesicoureteral reflux. Given the extensive perinephric stranding and thickening of Gerota's fascia, subtle superimposed pyelonephritis cannot be excluded and close clinical correlation is requested. There is also evidence of bilateral nonobstructing renal calculi. 2. Small and large bowel loops are decompressed and unremarkable. No evidence of acute colitis is seen. 3. Multiple prostate seed implants are seen, presumably related to prostate cancer treatment. 4. Moderate atherosclerotic disease, involving several of the aortic branch vessels, including coronary arteries and the mesenteric and renal arteries. There is also ectasia/aneurysmal dilatation of the mesenteric arteries. 5. Bilateral renal cysts and one hepatic cyst. 6. Hydropic gallbladder. Gallbladder otherwise unremarkable. 7. Partially imaged vertebral hemangioma at T8.
--- NOTE | 2017-11-04 17:33 | History & Physical ---
SeverinoRikki 11/04/17 3522: General Information and HPI MD Statement: I have seen and personally examined GORDY DUNCAN and documented this H&P. The patient is a 77 year old M who presented with a patient stated chief complaint of [Diarrhea and general body weakness]. Source of Information: patient, family, old records Exam Limitations: no limitations History of Present Illness: This is a 77 years old gentleman with past medical history of multiple sclerosis diagnosed 39 years ago not on active treatment, prostate cancer diagnosed in 2002 treated and declared cancer free who is having chronically indwelling catheter for the past 8 months and follows with urologist Dr. Bauman and is presenting today with 1 day history of profuse watery none blood diarrhea. Patient started having diarrhea from yesterday multiple motions has not counted and together with that he has been taking very little orally. He denies any abdominal pain nausea or vomiting. He denies blood in stool. There is nobody in the home has the same symptoms of diarrhea and denies eating anything exotic or drinking untreated water. He does not endorse extremely foul-smelling diarrhea. This patient has been taking multiple courses of antibiotic whenever he changes his Hummel catheter which he has been doing monthly. The last urological procedure was 2 months ago when he had cystoscopy by Dr. Bauman and was told it was normal. Patient has history of multiple UTIs but exploring his medical record he has always had sensitive Escherichia coli and only resistant to ciprofloxacin. Currently he presented with an indwelling catheter and denies any urological symptoms and also denies any suprapubic abdominal pain. He has also been having chills at home but denies any recorded high temperature. Patient has no cough or shortness of breath, he denies any chest pain palpitation lightheadedness or dizziness. He endorses feeling weak and the reports that the patient has been incontinent of fecal matters and below his baseline with reduced ability to move around. Allergies/Medications Allergies: Coded Allergies: NO KNOWN ALLERGIES (01/16/16) Home Med list Atorvastatin Calcium 80 MG TABLET 1 TAB PO DAILY CHOLESTEROL (Reported) Baclofen 10 MG TABLET 1 TAB PO PRN MUSCLE SPASMS (Reported) Bethanechol Chloride 25 MG TABLET 0.5 TAB PO BID BLADDER (Reported) Cholecalciferol (Vitamin D3) 1,000 UNIT TABLET 1 TAB PO DAILY SUPPLEMENT ( Reported) Cyanocobalamin (Vitamin B-12) (Unknown Strength) TABLET (Unknown Dose) PO DAILY SUPPLEMENT (Reported) Finasteride 5 MG TABLET 1 TAB PO DAILY BPH (Reported) Linagliptin (Tradjenta) 5 MG TABLET 1 TAB PO DAILY DM (Reported) Metformin HCl 1,000 MG TABLET 1 TAB PO BID DM (Reported) Phenazopyridine HCl (Pyridium) 200 MG TABLET 1 TAB PO TID PAIN Phenazopyridine HCl (Pyridium) 200 MG TABLET 1 TAB PO TID DYSUIRA Tamsulosin HCl 0.4 MG CAP.ER.24H 1 CAP PO BID BPH (Reported) Timolol Maleate 0.5 % DROPS 1 GTT OPH DAILY BOTH EYES (Reported) Past History Travel History Traveled to [place] past 21 day No Medical History Neurological: multiple sclerosis, SHORT TERM MEMORY LOSS EENT: glaucoma, TONSILLECTOMY Cardiovascular: hyperlipidemia Respiratory: NONE Gastrointestinal: NONE Hepatic: NONE Renal: UTI Musculoskeletal: osteoarthritis Psychiatric: NONE Endocrine: diabetes Blood Disorders: NONE Cancer(s): prostate cancer PROFILER/Reproductive: NONE Surgical History Surgical History: non-contributory, Prostate procedure Past Family/Social History Family History Relations & Conditions if any FATHER (Leukemia). MOTHER (Ovarian Cancer). Functional Ability ADLs Independent: dressing, eating, toileting, bathing. Ambulation: independent IADLs Independent: housework, food prep, telephone, medication admin. Review of Systems Review of Systems Constitutional: Reports: chills, weakness. Denies: fever. EENTM: Denies: no symptoms. Cardiovascular: Denies: chest pain, orthopena, palpitations. Respiratory: Denies: cough, short of breath, wheezing. GI: Reports: see HPI, diarrhea. Denies: abdominal pain, nausea, vomiting. Genitourinary: Denies: no symptoms. Musculoskeletal: Denies: no symptoms. Skin: Denies: no symptoms. All Other Systems: Reviewed and Negative Exam & Diagnostic Data Last 24 Hrs of Vital Signs/I&O Vital Signs Date Time Temp Pulse Resp B/P B/P Pulse O2 O2 Flow FiO2 Mean Ox Delivery Rate 11/04 1621 97.3 96 18 95/54 93 Room Air 11/04 1517 96 115/57 11/04 1417 99.9 93 16 88/56 93 Room Air 11/04 1346 92 20 92/61 93 Room Air 11/04 1254 98.8 94 18 99/58 92 Room Air Intake & Output 11/04 1600 11/04 0800 11/04 0000 Intake Total 500 Output Total Balance 500 Intake, IV 500 Patient 160 lb Weight Weight Estimated Measurement Method Physical Exam General Appearance Alert, Oriented X3, Cooperative, No Acute Distress Skin No Rashes Skin Temp/Moisture Exam: Warm/Dry Sepsis Skin Exam (color): Normal for Ethnicity HEENT Atraumatic, PERRLA, Dry mucous membranes Neck Supple, No JVD Cardiovascular Regular Rate, Normal S1, Normal S2 Lungs Clear to Auscultation, Normal Air Movement Abdomen Normal Bowel Sounds, Soft, No Tenderness, No CVJ tenderness, KENDRICK: Soiled anal vault, prostate constricted no tenderness on palpation Neurological Normal Speech, Normal Tone Extremities No Clubbing, No Cyanosis, No Edema Vascular Normal Pulses Sepsis Peripheral Pulse Location: Dorsalis Pedis Sepsis Peripheral Pulse Exam: Normal Sepsis Cap Refill Exam: <2 Sec Last 24 Hrs of Labs/Ilan: Laboratory Tests 11/04/17 1706: Lactic Acid 4.6 H 11/04/17 1600: Urine Color YEL, Urine Clarity TURBD H, Urine pH 8.5 H, Ur Specific [place] 1.010, Urine Protein 100 H, Urine Ketones NEG, Urine Nitrite POS H, Urine Bilirubin NEG, Urine Urobilinogen 1.0, Ur Leukocyte Esterase LARGE H, Ur Microscopic SEDIMENT EXAMINED, Urine RBC >75 H, Urine WBC 1-3 H, Ur Epithelial Cells RARE, Urine Bacteria PACKD H, Urine Hemoglobin LARGE H, Urine Glucose NEG 11/04/17 1315: Anion Gap 13, Estimated GFR 42 L, BUN/Creatinine Ratio 18.1, Glucose 153 H, Lactic Acid 6.0 H, Calcium 8.9, Total Bilirubin 0.4, AST 114 H, ALT 84 H, Alkaline Phosphatase 76, Troponin I 1.10 *H, Total Protein 5.4 L, Albumin 2.8 L, Globulin 2.6, Albumin/Globulin Ratio 1.1, CBC w Diff MAN DIFF ORDERED, RBC 4.91, MCV 87.1, MCH 28.5, MCHC 32.7 L, RDW 16.4 H, MPV 7.7, Gran % 97.1 H, Lymphocytes % 2.5 L, Monocytes % 0.4 L, Eosinophils % 0, Basophils % 0, Absolute Granulocytes 13.9 H, Segmented Neutrophils 82 H, Band Neutrophils 12 H, Absolute Lymphocytes 0.4 L, Lymphocytes 4 L, Monocytes 2, Absolute Monocytes 0.1, Absolute Eosinophils 0, Absolute Basophils 0, Platelet Estimate ADEQUATE, Normocytic RBCs VERIFIED, Normochromic RBCs VERIFIED Microbiology 11/04 1600 URINE ROUT: Urine Culture - RECD 11/04 1504 BLOOD: Blood Culture - RECD 11/04 1422 STOOL: Clostridium difficile Toxin A & B - COLB 11/04 1422 STOOL: Stool Culture - COLB 11/04 1315 BLOOD: Blood Culture - RECD Diagnostic Data EKG Results Normal sinus rhythm regular normal axis QTC of [address]-T wave changes CXR Results No acute pathology Other Results CT abdomen and pelvis: Mild bilateral hydroureteronephrosis is seen all the way down to the bladder with no definite obstructing stone or mass seen. Bladder is significantly distended, despite Hummel catheter. Findings may be related to chronic vesicoureteral reflux. Given the extensive perinephric stranding and thickening of Gerota's fascia, subtle superimposed pyelonephritis cannot be excluded and close clinical correlation is requested. There is also evidence of bilateral nonobstructing renal calculi. 2. Small and large bowel loops are decompressed and unremarkable. No evidence of acute colitis is seen. 3. Multiple prostate seed implants are seen, presumably related to prostate cancer treatment. Assessment/Plan Assessment: This is a 77 years old gentleman with the past medical history of CA prostate declared cancer free, urinary outlet obstruction on chronic indwelling Hummel catheter, multiple sclerosis not on active treatment who is presenting with one- day history of diarrhea that is nonbloody large amount not associated with abdominal pain, has history of multiple antibiotic use. Patient has been on metformin for type 2 diabetes and recently has not been drinking well and is losing a lot of fluid through diarrhea presenting with an achy type picture with capping of 1.6 from baseline of around 0.9. He had significant lactic acidosis of 6.0 on arrival. This lactic acidosis can be partly due to metformin in the setting of DEVONTE. Patient blood pressure on arrival was in the lower side 85/56 but per family blood pressure is usually on the lower side around 100/60 at baseline. Patient has significantly positive UA with leukocyte Estrase and positive nitrites although very few WBC 1-3. Examination of the prostate did not elicit any tenderness and there was soft brown non-bloodstained fecal matters around the anal orifice. Problem list Diarrhea Severe sepsis Acute kidney injury Elevated troponin most likely type II demand ischemia Lactic acidosis Type 2 diabetes mellitus Leukocytosis with left shift and 12 bands Transaminitis Admit the patient to intensive care unit Vital signs every hour Check orthostatic vitals Patient has received 3 L of normal saline will give 1 more liter and continue with maintenance at 100 mL/h Trend creatinine and correct electrolytes accordingly Stool culture/urine culture Stool for C. difficile Patient had received just has received ceftazidine will start the patient on ceftriaxone 1 g every 24 hours (sensitive urinary bags from previous cultures) Will hold metformin and start the patient on NovoLog sliding scale Accu-Cheks before meals Trend lactic acidosis Trend liver function parameters, add coags Troponin and EKG till when it plateaus Echocardiogram Monitor input and output and if decreased urine output. Bladder scan Urology consult a.m. (patient has hydronephrosis bilaterally) Will hold finasteride and tamsulosin (can lower blood pressure) As Ranked By This Provider Problem List: 1. Urinary tract infection 2. Sepsis 3. Elevated troponin 4. Diarrhea Core Measures/Misc (02/05) Acute Coronary Syndrome ACS Diagnosis: No Congestive Heart Failure Congestive Heart Failure Diagnosis No Cerebrovascular Accident CVA/TIA Diagnosis: No VTE (View Protocol) VTE Risk Factors Acute Medical Illness No Mechanical VTE Prophylaxis d/t N/A MechProphylax Ordered No VTE Pharm Prophylaxis d/t NA PharmProphylax ordered Sepsis (View protocol) Sepsis Present: Yes If YES complete Sepsis Event Note If YES complete Sepsis Event Note Resident Review Statement Resident Statement: examined this patient, management and analysis as above Arley Bey MD 11/04/17 2216: Core Measures/Misc (02/05) Sepsis (View protocol) If YES complete Sepsis Event Note If YES complete Sepsis Event Note Attending MD Review Statement Attending Statement Attending MD Statement: examined this patient, discuss w/resident/PA/BANK CLERK, agreed w/resident/PA/BANK CLERK, reviewed EMR data (avail), reviewed images, amended to note Attending Assessment/Plan: The patient is a 77 yo male with h/o multiple sclerosis, DM2, h/o prostate ca ( Rx with radioactive seeds- 2002), chronic indwelling hummel catheter (followed by Dr. Bauman) who presented on the day of admission with watery stools/diarrhea. He denied abdominal pain, however on my exam had suprapubic tenderness. No cough , dyspnea, chest pain, etc. He had a cystoscopy 2 months ago. Has a h/o multiple UTI's (usually growing E. coli - R to Cipro or enterococcus). In the ED he was noted to be hypotensive (88/54) with temp of 99.9. WBC elevated at 14.3 with left shift and Cr 1.6. CT abd/pel showed some hydronephrosis (?hummel was irrigated and then produced urine- ? obstruction). He also had elevated lactate level of 6.0 and met sepsis criteria. He was begun on Vanco and Ceftaz in ED. Physical Exam: VS: T 99.9, P 93, R 20, BP 88/56-115/54 (post 3 L IV fluid), PO 93% RA HEENT: eyes- PERRLA, EOMI stuart- dry mucosa Neck: no JVD/bruits Chest: clear Cor: RRR nl S1, S2 w/o murm Abd: BS, soft, + moderate suprapubic tenderness w/o rebound Ext: no edema, pulses 1+ Neuro: sleepy, however responsive and able to answer simple questions. Labs/Tests- as above Impression/Plan: #Sepsis- patient meeting criteria with elevated WBC/left shift, hypotension, elevated lactate level. Probable source is urinary with ? pyelonephritis on CT. Also could represent prostatitis with suprapubic tenderness. Plan: Admit to ICU for close hemodynamic monitoring. IV fluids -as per sepsis protocol. Henley- culture (including stool for C-difficile). Agree with Ceftriaxone (had Cetazidime and Vanco in ED x 1 dose each). ID consult in morning. #Elevated Troponin I Level- as above, no chest pain. Consider type 2 OK as possibility (due to hypotension/sepsis). Plan monitoring analyst. Follow serial troponin levels. Cardiology consult in morning - Dr. Kemp. #DM2- normally on Metformin & Linagliptin. Plan: Hold oral agents and cover with sliding scale insulin/glucoscans. #BPH/h/o Prostate Ca- patient with chronic indwelling hummel. H/O prostate cancer and radioactive seed implants. Is on Tamsulosin/Finasteride. Also has h/o bladder spasm. Had mild hydro on initial CT- catheter was flushed afterward with some urine output. Plan: Hold Tamsulosin while hypotensive. Will discuss further with patient when able to do so. Urology follow-up Dr. Bauman. Monitor for hummel obstruction. #Lactic Acidosis- ? secondary to sepsis. Plan: Will evaluate in ICU as above and follow sepsis order set- IV hydration. #DEVONTE- secondary to volume depletion Cr 1.9. Plan: Follow-up post hydration. #DEVONTE- secondary to volume depletion Cr 1.9. Plan: Follow-up post hydration.
--- NOTE | 2017-11-04 19:00 | Sepsis Event Note ---
Sepsis Event Note Severe Sepsis Severe Sepsis Present: Yes Severe Sepsis Actions Taken: Blood Cultures x2, Lactic Acid x2, IV Broad Spectrum Abx, IV Fluids- NS or LR Septic Shock Septic Shock Present: Yes Septic Shock Actions Taken: Blood Cultures x2, Lactic Acid, IV Broad Spectrum Abx, Focused Exam, IV Fluids NS/LR 30ml/kg Event Note Event Note: Patient presented with one-day history of diarrhea found to be hypotensive with presentation blood pressure of 88/56 which improved after IV fluid bolus about 4 L. Significantly elevated lactic acid of 6.0 and TE urine analysis suggestive of urine infection with significant leukocytosis of 14,300 with granulocytes of 97% and 12 bands. Sepsis Focused Exam Sepsis Cardiac Exam: Regular Rate/Rhythm Sepsis Resp Exam: CTA Sepsis Cap Refill Exam: <2 Sec Sepsis Peripheral Pulse Exam: Normal Sepsis Peripheral Pulse Location: Dorsalis Pedis Sepsis Skin Exam (color): Normal for Ethnicity Skin Temp/Moisture Exam: Warm/Dry
[2017-11-04 19:54] LABS: PT 14.7 SEC (9.4-12.5); PTT 26 SEC (25-37)
--- NOTE | 2017-11-04 22:41 | Admission Certification ---
Admission Certification Certification Statement - As attending physician, I certify that at the time of - admission, based on clinical presentation, severity of - symptoms, need for further diagnostic testing and - therapeutic interventions, and risk of adverse outcomes - without in-hospital treatment, in my clinical assessment, - this patient requires an acute hospital stay for a minimum - of two nights or longer. I have also considered psychsocial - factors such as support system, advanced age, financial - issues, cognitive issues, and failed out-patient treatments, - past re-admission history, safety of patient, and lack of - compliance as applicable. Specific rationale supporting this admission is: The patient presents in ED with fever, leukocytosis with left shift, hypotension , and elevated Cr (DEVONTE) and troponin I. Symptoms c/w sepsis probably with urinary origin- ? pyelonephritis. Also troponin may represent type 2 [place]. Needs ICU admission for sepsis protocol- IV fluids, antibiotics, etc. Follow/trend troponin levels and Cr. Henley culture, ID and Cardiology consults.
[2017-11-05] VITALS: BP 104/58
[2017-11-05 06:15] LABS: ABSOLUTE BASOPHIL COUNT 0 /CUMM (0.0-0.2); ABSOLUTE EOSINOPHIL COUNT 0 /CUMM (0.0-0.7); ABSOLUTE LYMPH COUNT 0.7 /CUMM (1.2-3.4); ABSOLUTE MONOCYTE COUNT 0.9 /CUMM (0.10-0.60); BASOPHIL % 0 % (0.0-2.0); EOSINOPHIL % 0 % (0-5); GRANULOCYTE % 93.1 % (42.2-75.2); HEMATOCRIT 38.3 % (42-52); MEAN CORPUSCULAR HGB 28.7 PG (27.0-31.0); MEAN CORPUSCULAR HGB CONC 33.1 G/DL (33.0-37.0); MEAN CORPUSCULAR VOLUME 86.7 FL (80.0-94.0); MEAN PLATELET VOLUME 8.2 FL (7.4-10.4); PLATELET COUNT 147 /CUMM (130-400); RBC DISTRIBUTION WIDTH 16.5 % (11.5-14.5); RED BLOOD CELL CT 4.41 /CUMM (4.70-6.10)
[2017-11-05 06:21] LABS: WHITE BLOOD CELL COUNT 23.6 /CUMM (4.8-10.8)
[2017-11-05 06:25] LABS: PTT 34 SEC (25-37)
[2017-11-05 08:00] VITALS: BP 116/62
--- NOTE | 2017-11-05 08:29 | PN- Resident CRCU ---
[place] GRAHAM,Evelio 11/05/17 0828: Subjective HPI/CRCU Issues: Severe sepsis of general cigars and; Elevated troponin; Lactic acidosis; Diarrhea, DEVONTE 24 Hour Events: I followed up and examined the patient today. The patient's vital seems to be improved in terms of blood pressure, his urine output has remained stable, troponin is trending down already, and his lactic acidosis as resolving. The patient does not appear to be in any distress, and the only complaint he has is primarily mild as he is currently NPO. No nursing issues reported to me either. Objective Vital Signs & I&O Last 8 Hrs of Vitals and I&O: Vital Signs Date Time Temp Pulse Resp B/P B/P Pulse O2 O2 Flow FiO2 Mean Ox Delivery Rate 11/05 0400 94 Nasal 2.0L Cannula 11/05 0000 93 Nasal 2.0L Cannula 11/05 0000 99.6 86 18 104/58 93 Nasal 3.0L Cannula 11/04 2005 93 Nasal 3.0L Cannula 11/04 1825 97.5 94 18 90/54 95 Nasal 3.0L Cannula 11/04 1621 97.3 96 18 95/54 93 Room Air 11/04 1517 96 115/57 11/04 1417 99.9 93 16 88/56 93 Room Air 11/04 1346 92 20 92/61 93 Room Air 11/04 1254 98.8 94 18 99/58 92 Room Air Intake & Output 11/05 1600 11/05 0800 11/05 0000 Intake Total 1135 3142 Output Total 800 1090 Balance 335 2052 Intake, IV 1135 3142 Intake, Oral 0 0 Number 1 0 Bowel Movements Output, Urine 800 1090 Patient 83.026 kg Weight Weight Bed scale Measurement Method Exam General Appearance: well developed/nourished, no apparent distress, alert, awake , comfortable, somewhat confused fahad about the timeline and people who have visited him Other Physical Findings: Skin No Rashes Skin Temp/Moisture Exam: Warm/Dry HEENT Atraumatic, PERRLA, Dry mucous membranes Neck Supple, No JVD Cardiovascular Regular Rate, Normal S1, Normal S2 Lungs Clear to Auscultation, Normal Air Movement Abdomen Normal Bowel Sounds, Soft, No Tenderness, No CVJ tenderness; Contreras in situ Neurological Confused when asked about the timline of events; Normal Speech, Normal Tone; motor sensory intact Extremities No Clubbing, No Cyanosis, No Edema Vascular Normal Pulses Current Medications: Current Medications Sig/Lauren Start time Last Medication Dose Route Stop Time Status Admin Aspirin 325 MG ONCE ONE 11/04 1430 DC 11/04 PO 11/04 1431 1736 Ceftazidime 0 .STK-MED ONE 11/04 1510 DC .ROUTE Ceftazidime 1,000 MG ONCE ONE 11/04 1430 DC 11/04 IV 11/04 1431 1515 Ceftriaxone Sodium 1,000 MG DAILY 11/05 0900 AC 11/05 IV 0824 Dextrose/Sodium 1,000 ML Q8H 11/05 0800 AC 11/05 Chloride IV 0821 Heparin Sodium 5,000 UNIT Q8 11/04 2200 AC 11/05 (Porcine) SC 0503 Insulin Aspart 0 TIDAC 11/05 0800 SC Magnesium Sulfate 1 GM ONCE ONE 11/05 0800 AC 11/05 Dextrose/Water 100 ML IV 11/05 1159 0820 Magnesium Sulfate 1 GM Q2H 11/04 2100 DC 11/04 Dextrose/Water 100 ML IV 11/05 0059 2246 Sodium Chloride 1,000 ML .Q10H 11/04 1930 DC 11/05 IV 0503 Sodium Chloride 1,000 ML BOLUS ONE 11/04 1830 DC 11/04 IV 11/04 1929 1904 Sodium Chloride 1,000 ML BOLUS ONE 11/04 1415 DC 11/04 IV 11/04 1514 1436 Sodium Chloride 1,000 ML BOLUS ONE 11/04 1415 DC 11/04 IV 11/04 1514 1436 Sodium Chloride 1,000 ML BOLUS ONE 11/04 1330 DC 11/04 IV 11/04 1429 1345 Timolol Maleate 1 GTT DAILY 11/05 0900 AC 11/05 OPH 0825 Vancomycin HCl 1,000 MG ONCE ONE 11/04 1430 DC 11/04 Sodium Chloride 250 ML IV 11/04 1529 1736 Impression/Plan Impression/Problem List Impression: 77-year-old male with past medical history off prostate carcinoma declared cancer free, urinary outlet obstruction on chronic indwelling Contreras catheter, multiple UTI, multiple sclerosis not on active treatment, presented with 1 day history of nonbloody diarrhea, and was found to be in severe sepsis, of urological origin, actively resuscitated with IV fluids, and IV antibiotics, is currently being managed in the ICU for the following issues: Patient is currently being treated in the ICU for the following issues: RESPIRATORY No issues INFECTIOUS DISEASE #Severe sepsis of urologic origin Infectious disease consultation was made earlier today and IV antibiotics changed to IV meropenem given the patient's severity, increasing leukocytosis with bands of 34, and his persistent confusion despite being on other IV antibiotics. Urine culture is positive for gram-negative rods, and will follow the final results. Lactic acidosis has been resolved, the last one being 1.6. No obstruction and creatinine is better at 1.1 today. Urology consultation appreciated, and the patient will be kept nothing by mouth from midnight tomorrow for possible suprapubic catheterization on Monday. CARDIOLOGY #Elevated troponin, secondary to Type II [place]/sepsis/DEVONTE Cardiology recommendations appreciated, and we are getting an echocardiogram to rule out any wall motion abnormality. Will continue telemetry for now. Troponin has trended down already. HEMATOLOGY #Leukocytosis, secondary to sepsis #Low platelet, likely due to sepsis vs dilutional (drop from 226 to 147) METABOLIC No issues ALIMENTARY No issues, started PO diet today. -Needs to be NPO from Monday night for possible suprapubic catheterization on Monday per Urology. NEPHROLOGY #DEVONTE, secondary to urosepsis, improving Patient's creatinine today is 1.1, which has significantly improved after fluid resuscitation and management of sepsis, although he continues to have UTI. Will keep monitoring. NEUROLOGY No issues, but mild confusion noted. Per his , this is his baseline. CHRONIC ISSUES OTHERWISE: Back pain: Continued Baclofen, and changed pain meds. Will reassess PRN. MISC: Diet: CC2 diet for now, NPO from NC on Monday for Uro procedure on Monday. DVT prophylaxis: SQ Heparin Code status: Full code IV access: Peripheral Problem List: 1. Severe sepsis with acute organ dysfunction 2. UTI (urinary tract infection) 3. Myocardial infarction type 2 4. DEVONTE (acute kidney injury) Pain Ratin Pain Location: - Pain Goal: Pain 4 or less Pain Plan: prn Tomorrow's Labs & Rationales: CBC, ICU lab bundle Plan DVT/Prophylaxis: mechanical, pharmacological Arley Bey MD 11/05/17 2241: Attending MD Review Statement Attending Sign Off Attending Cosign Statement: I have: examined this patient, reviewed [facility] EMR data, personally reviewd images, discussd w/resident/PA/PM TECHNICIAN, discussed mgmt plan w/pt, agreed w/resident/ PA/PM TECHNICIAN, amended to note. Other Findings: The patient was seen and discussed with house staff. Clinically improved. Appreciate ID, Cardiology and Urology input. Agree with change of Abx to Meropenem pending cultures. Urology plans cysto and suprapubic tube placement. ECHO done and await report.
--- NOTE | 2017-11-05 10:21 | Cons- Infect Disease ---
General Information and HPI Consulting Request Date of Consult: 11/05/17 Requested By: Arley Bey MD Reason for Consult: Rule out sepsis of urologic origin Exam Limitations: confusion History of Present Illness: This is a 77-year-old man with a history of multiple sclerosis for nearly 40 years, not on any treatment, prostate cancer, diagnosed 15 years prior to admission, with an indwelling Contreras catheter for the past 8 months, apparently treated with multiple courses of antibiotics since then with a normal cystoscopy reportedly 2 months prior to admission, admitted on November 04 after he was brought to the emergency room with the acute onset of diarrhea, lethargy and decreased responsiveness. On admission he was afebrile, with blood pressure down to 88/ 56. His Contreras was unable to be irrigated and was replaced. Laboratory data revealed a white blood cell count of 14,000, with 82 segs and 12 bands, BUN/ creatinine 29 and 1.6, lactic acid 6.0, AST/ALT 114 and 84, CPK 834, troponin I.10, INR 1.34. Urinalysis >75 RBC/1-3 WBCs. Chest x-ray revealed bibasilar atelectasis. CT of the abdomen and pelvis revealed mild bilateral hydroureteronephrosis, with a significantly distended bladder despite the Contreras catheter, with extensive perinephric stranding and bilateral nonobstructing ureteral calculi, multiple prostate seed implants and a hydropic gallbladder. He was given vancomycin and Ceftazidime and admitted to the ICU, where he was changed to Ceftriaxone. He has remained afebrile overnight. He does not report any complaints but does appear to be confused with his history. Allergies/Medications Allergies: Coded Allergies: NO KNOWN ALLERGIES (01/16/16) Home Med List: Atorvastatin Calcium 80 MG TABLET 1 TAB PO DAILY CHOLESTEROL (Reported) Baclofen 10 MG TABLET 1 TAB PO PRN MUSCLE SPASMS (Reported) Bethanechol Chloride 25 MG TABLET 0.5 TAB PO BID BLADDER (Reported) Cholecalciferol (Vitamin D3) 1,000 UNIT TABLET 1 TAB PO DAILY SUPPLEMENT ( Reported) Cyanocobalamin (Vitamin B-12) (Unknown Strength) TABLET (Unknown Dose) PO DAILY SUPPLEMENT (Reported) Finasteride 5 MG TABLET 1 TAB PO DAILY BPH (Reported) Linagliptin (Tradjenta) 5 MG TABLET 1 TAB PO DAILY DM (Reported) Metformin HCl 1,000 MG TABLET 1 TAB PO BID DM (Reported) Phenazopyridine HCl (Pyridium) 200 MG TABLET 1 TAB PO TID PAIN Phenazopyridine HCl (Pyridium) 200 MG TABLET 1 TAB PO TID DYSUIRA Tamsulosin HCl 0.4 MG CAP.ER.24H 1 CAP PO BID BPH (Reported) Timolol Maleate 0.5 % DROPS 1 GTT OPH DAILY BOTH EYES (Reported) Past History Travel History Traveled to [place] past 21 day No Medical History Blood Transfusion Hx: No Neurological: multiple sclerosis, SHORT TERM MEMORY LOSS EENT: glaucoma, TONSILLECTOMY Cardiovascular: hyperlipidemia Respiratory: NONE Gastrointestinal: NONE Hepatic: NONE Renal: UTI Musculoskeletal: osteoarthritis Psychiatric: NONE Endocrine: diabetes Blood Disorders: NONE Cancer(s): prostate cancer MANAGER STAR/Reproductive: NONE Other Medical Hx: Recurrent urinary tract infections History of MRSA: No History of VRE: No History of CDIFF: No Isolation History: Standard Surgical History Surgical History: Prostate procedure Family History Relations & Conditions If Any: FATHER (Leukemia). MOTHER (Ovarian Cancer). Psychosocial History Where Do You Live? Home Services at Home: None Smoking Status: Never Smoked Functional Ability ADLs Independent: dressing, eating, toileting, bathing. Ambulation: independent IADLs Independent: housework, food prep, telephone, medication admin. Review of Systems Review of Systems All Other Systems: Reviewed and Negative Exam & Diagnostic Data Last 24 Hrs of Vital Signs/I&O Vital Signs Date Time Temp Pulse Resp B/P B/P Pulse O2 O2 Flow FiO2 Mean Ox Delivery Rate 11/05 0400 94 Nasal 2.0L Cannula 11/05 0000 93 Nasal 2.0L Cannula 11/05 0000 99.6 86 18 104/58 93 Nasal 3.0L Cannula 11/04 2005 93 Nasal 3.0L Cannula 11/04 1825 97.5 94 18 90/54 95 Nasal 3.0L Cannula 11/04 1621 97.3 96 18 95/54 93 Room Air 11/04 1517 96 115/57 11/04 1417 99.9 93 16 88/56 93 Room Air 11/04 1346 92 20 92/61 93 Room Air 11/04 1254 98.8 94 18 99/58 92 Room Air Intake & Output 11/05 1600 11/05 0800 11/05 0000 Intake Total 1135 3142 Output Total 800 1090 Balance 335 2052 Intake, IV 1135 3142 Intake, Oral 0 0 Number 1 0 Bowel Movements Output, Urine 800 1090 Patient 183 lb Weight Weight Bed scale Measurement Method Physical Exam Other Physical Findings: He is awake and alert, appearing confused, but in no acute distress. He is afebrile. Skin reveals no rash. HEENT exam is negative. Neck is supple with no adenopathy. Lungs are clear. Heart regular rhythm with no murmur. Abdomen is soft, tender on palpation of the left lower quadrant, with no guarding or rebound, with positive bowel sounds. Back left CVA tenderness. Extremities no cyanosis, clubbing or edema. Neuro paraparesis. Contreras catheter is in place. Last 24 Hours of Lab Results: Laboratory Tests 11/05 11/05 11/05 0835 0500 0100 Chemistry Sodium (137 - 145 mmol/L) 144 Potassium (3.5 - 5.1 mmol/L) 4.2 Chloride (98 - 107 mmol/L) 112 H Carbon Dioxide (22 - 30 mmol/L) 22 Anion Gap (5 - 16) 10 BUN (9 - 20 mg/dL) 27 H Creatinine (0.7 - 1.2 mg/dL) 1.1 Estimated GFR (>60 ml/min) > 60 Glucose (65 - 99 mg/dL) 64 L Lactic Acid (0.7 - 2.1 mmol/L) 1.6 Calcium (8.4 - 10.2 mg/dL) 7.5 L Phosphorus (2.5 - 4.5 mg/dL) 4.0 Magnesium (1.6 - 2.3 mg/dL) 1.9 Total Bilirubin (0.2 - 1.3 mg/dL) 0.5 AST (17 - 59 U/L) 246 H ALT (21 - 72 U/L) 245 H Troponin I (<0.11 ng/ml) 1.01 *H Albumin (3.5 - 5.0 g/dL) 2.3 L Coagulation PT (9.4 - 12.5 SEC) 15.0 H INR (0.90 - 1.17) 1.37 H APTT (25 - 37 SEC) 34 Hematology CBC w Diff MAN DIFF ORDERED WBC (4.8 - 10.8 /CUMM) 23.6 H RBC (4.70 - 6.10 /CUMM) 4.41 L Hgb (14.0 - 18.0 G/DL) 12.7 L Hct (42 - 52 %) 38.3 L MCV (80.0 - 94.0 FL) 86.7 MCH (27.0 - 31.0 PG) 28.7 MCHC (33.0 - 37.0 G/DL) 33.1 RDW (11.5 - 14.5 %) 16.5 H Plt Count (130 - 400 /CUMM) 147 MPV (7.4 - 10.4 FL) 8.2 Gran % (42.2 - 75.2 %) 93.1 H Lymphocytes % (20.5 - 51.1 %) 2.9 L Monocytes % (1.7 - 9.3 %) 4.0 Eosinophils % (0 - 5 %) 0 Basophils % (0.0 - 2.0 %) 0 Absolute Granulocytes (1.4 - 6.5 /CUMM) 22.0 H Segmented Neutrophils (42.2 - 75.2 %) 57 Band Neutrophils (0.0 - 5.0 %) 34 H Absolute Lymphocytes (1.2 - 3.4 /CUMM) 0.7 L Lymphocytes (20.5 - 51.1 %) 4 L Monocytes (1.7 - 9.3 %) 4 Absolute Monocytes (0.10 - 0.60 /CUMM) 0.9 H Absolute Eosinophils (0.0 - 0.7 /CUMM) 0 Basophils (0.0 - 2.0 %) 1 Absolute Basophils (0.0 - 0.2 /CUMM) 0 Platelet Estimate (ADEQUATE) ADEQUATE Poikilocytosis 3+ Anisocytosis 1+ Ana Cells 3+ 11/04 11/04 11/04 11/04 11/04 2121 2120 1925 1925 1706 Chemistry Sodium (137 - 145 mmol/L) 143 Potassium (3.5 - 5.1 mmol/L) 4.1 Chloride (98 - 107 mmol/L) 114 H Carbon Dioxide (22 - 30 mmol/L) 21 L Anion Gap (5 - 16) 9 BUN (9 - 20 mg/dL) 28 H Creatinine (0.7 - 1.2 mg/dL) 1.3 H Estimated GFR (>60 ml/min) 54 L Glucose (65 - 99 mg/dL) 83 Lactic Acid (0.7 - 2.1 mmol/L) Cancelled 3.5 H 4.6 H Calcium (8.4 - 10.2 mg/dL) 7.3 L Phosphorus (2.5 - 4.5 mg/dL) 2.1 L Magnesium (1.6 - 2.3 mg/dL) 1.3 L Total Bilirubin (0.2 - 1.3 mg/dL) 0.3 AST (17 - 59 U/L) 166 H ALT (21 - 72 U/L) 138 H Troponin I (<0.11 ng/ml) 1.08 *H Albumin (3.5 - 5.0 g/dL) 2.0 L Coagulation PT (9.4 - 12.5 SEC) 14.7 H INR (0.90 - 1.17) 1.34 H APTT (25 - 37 SEC) 26 Toxicology Urine Opiates Screen (>2000 NG/ML) < 100 Methadone Screen (>300 NG/ML) < 40 Barbiturate Screen (>200 NG/ML) < 60 Ur Phencyclidine Scrn (>25 NG/ML) < 6.00 Amphetamines Screen (>1000 NG/ML) < 100 U Benzodiazepines Scrn (>200 NG/ML) < 85 Urine Cocaine Screen (>300 NG/ML) < 50 Urine Cannabis Screen (>50 NG/ML) < 5.00 16 11/04 1600 1315 Chemistry Sodium (137 - 145 mmol/L) 142 Potassium (3.5 - 5.1 mmol/L) 4.5 Chloride (98 - 107 mmol/L) 108 H Carbon Dioxide (22 - 30 mmol/L) 21 L Anion Gap (5 - 16) 13 BUN (9 - 20 mg/dL) 29 H Creatinine (0.7 - 1.2 mg/dL) 1.6 H Estimated GFR (>60 ml/min) 42 L BUN/Creatinine Ratio (7 - 25 %) 18.1 Glucose (65 - 99 mg/dL) 153 H Lactic Acid (0.7 - 2.1 mmol/L) 6.0 H Calcium (8.4 - 10.2 mg/dL) 8.9 Total Bilirubin (0.2 - 1.3 mg/dL) 0.4 AST (17 - 59 U/L) 114 H ALT (21 - 72 U/L) 84 H Alkaline Phosphatase (< 127 U/L) 76 Creatine Kinase (55 - 170 U/L) 834 H Troponin I (<0.11 ng/ml) 1.10 *H Total Protein (6.3 - 8.2 g/dL) 5.4 L Albumin (3.5 - 5.0 g/dL) 2.8 L Globulin (1.9 - 4.2 gm/dL) 2.6 Albumin/Globulin Ratio (1.1 - 2.2 %) 1.1 Hematology CBC w Diff MAN DIFF ORDERED WBC (4.8 - 10.8 /CUMM) 14.3 H RBC (4.70 - 6.10 /CUMM) 4.91 Hgb (14.0 - 18.0 G/DL) 14.0 Hct (42 - 52 %) 42.8 MCV (80.0 - 94.0 FL) 87.1 MCH (27.0 - 31.0 PG) 28.5 MCHC (33.0 - 37.0 G/DL) 32.7 L RDW (11.5 - 14.5 %) 16.4 H Plt Count (130 - 400 /CUMM) 226 MPV (7.4 - 10.4 FL) 7.7 Gran % (42.2 - 75.2 %) 97.1 H Lymphocytes % (20.5 - 51.1 %) 2.5 L Monocytes % (1.7 - 9.3 %) 0.4 L Eosinophils % (0 - 5 %) 0 Basophils % (0.0 - 2.0 %) 0 Absolute Granulocytes (1.4 - 6.5 /CUMM) 13.9 H Segmented Neutrophils (42.2 - 75.2 %) 82 H Band Neutrophils (0.0 - 5.0 %) 12 H Absolute Lymphocytes (1.2 - 3.4 /CUMM) 0.4 L Lymphocytes (20.5 - 51.1 %) 4 L Monocytes (1.7 - 9.3 %) 2 Absolute Monocytes (0.10 - 0.60 /CUMM) 0.1 Absolute Eosinophils (0.0 - 0.7 /CUMM) 0 Absolute Basophils (0.0 - 0.2 /CUMM) 0 Platelet Estimate (ADEQUATE) ADEQUATE Normocytic RBCs VERIFIED Normochromic RBCs VERIFIED Urines Urine Color (YEL,AMB,STR) YEL Urine Clarity (CLEAR) TURBD H Urine pH (5.0 - 8.0) 8.5 H Ur Specific Ezel (1.001 - 1.035) 1.010 Urine Protein (NEG,<30 MG/DL) 100 H Urine Ketones (NEG) NEG Urine Nitrite (NEG) POS H Urine Bilirubin (NEG) NEG Urine Urobilinogen (0.1 - 1.0 EU/dl) 1.0 Ur Leukocyte Esterase (NEG) LARGE H Ur Microscopic SEDIMENT EXAMINED Urine RBC (0 - 5 /HPF) >75 H Urine WBC (0 - 2 /HPF) 1-3 H Ur Epithelial Cells (NONE,FEW) RARE Urine Bacteria (NEG/NONE) PACKD H Urine Hemoglobin (NEG) LARGE H Urine Glucose (N MG/DL) NEG Last 24 Hours of [place] Results: Blood cultures 2 November 04 positive for gram negative rods Urine culture November 04 greater than 100,000 colonies of gram-negative rods Diagnostic Data Recent Imaging Findings: Chest x-ray revealed bibasilar atelectasis. CT of the abdomen and pelvis revealed mild bilateral hydroureteronephrosis, with a significantly distended bladder despite the Contreras catheter, with extensive perinephric stranding and bilateral nonobstructing ureteral calculi, multiple prostate seed implants and a hydropic gallbladder. Assessment/Plan Assessment/Plan Impression: This is a 77-year-old man with a history of multiple sclerosis, prostate cancer, with an indwelling Contreras catheter for the past 8 months, apparently treated with multiple courses of antibiotics since then, admitted on November 04 with the acute onset of diarrhea, lethargy and decreased responsiveness, found to be afebrile and hypotensive, with leukocytosis/bandemia, elevated liver enzymes and elevated troponin, with a CT scan of the abdomen and pelvis revealing mild bilateral hydroureteronephrosis, with a significantly distended bladder despite the Contreras catheter, with extensive perinephric stranding and bilateral nonobstructing ureteral calculi, and with his nblood and urine cultures reported positive today for gram negative rods. His clinical picture is consistent with sepsis of urologic origin. He has apparently had an indwelling Contreras catheter for the past 8 months, which clearly increases his risk for infection. The CT scan does reveal bilateral hydroureteronephrosis and he may require cystoscopy/stenting by Urology. The bladder distention despite the Contreras catheter raises concern for chronic vesicoureteral reflux and this will need to be addressed by Urology as well. Given his history of multiple antibiotic treatments in the past the possibility of a resistant organism, for example ESBL producing E. coli, must be considered and it may be reasonable, particularly given his increased white blood cell count and bandemia today, to cover for this pending final cultures. In an effort to reduce the likelihood of further urinary tract infections alternatives to a Contreras catheter should be considered. His elevated troponin is likely secondary to a type II OR but will defer to the ICU team. Suggestion: 1. Await Urology input 2. Would consider alternatives to the Contreras catheter, for example straight catheterization or suprapubic cystostomy if feasible 3. Follow-up final cultures 4. Further evaluation/management of his elevated troponin per the ICU team 5. Discontinue Ceftriaxone 6. Begin Meropenem 1 g IV every 8 hours pending above Consult Acknowledgment - Thank you for your consult request.
--- NOTE | 2017-11-05 11:02 | Cons- Urology ---
General Information and HPI Consulting Request Date of Consult: 11/05/17 Requested By: Arley Bey MD Reason for Consult: urinary retention with sepsis Source of Information: patient, family, old records Exam Limitations: no limitations History of Present Illness: PATIENT IS CURRENTLY PAIN FREE, FEELS MUCH IMPROVED,AND ALERT AT THIS TIME WITHOUT COMPLAINTS: AT BEDSIDE. This is a 77 years old gentleman with past medical history of multiple sclerosis diagnosed 39 years ago not following up with neurologist, prostate cancer diagnosed in 2002 treated and declared cancer free who is having chronically indwelling catheter for the past 8 months and follows with urologist Dr. Bauman and is presenting today with 1 day history of profuse watery none blood diarrhea. Patient started having diarrhea from yesterday multiple motions has not counted and together with that he has been taking very little orally. He denies any abdominal pain nausea or vomiting. He denies blood in stool. There is nobody in the home has the same symptoms of diarrhea and denies eating anything exotic or drinking untreated water. He does not endorse extremely foul -smelling diarrhea. This patient has been taking multiple courses of antibiotic whenever he changes his Torres catheter which he has been doing monthly. The last urological procedure was 2 months ago when he had cystoscopy by Dr. Bauman and was told it was normal. Patient has history of multiple UTIs but exploring his medical record he has always had sensitive Escherichia coli and only resistant to ciprofloxacin. Currently he presented with an indwelling catheter and denies any urological symptoms and also denies any suprapubic abdominal pain. He has also been having chills at home but denies any recorded high temperature. Patient has no cough or shortness of breath, he denies any chest pain palpitation lightheadedness or dizziness. He endorses feeling weak and the reports that the patient has been incontinent of fecal matters and below his baseline with reduced ability to move around. Allergies/Medications Allergies: Coded Allergies: NO KNOWN ALLERGIES (01/16/16) Home Med List: Atorvastatin Calcium 80 MG TABLET 1 TAB PO DAILY CHOLESTEROL (Reported) Baclofen 10 MG TABLET 1 TAB PO PRN MUSCLE SPASMS (Reported) Bethanechol Chloride 25 MG TABLET 0.5 TAB PO BID BLADDER (Reported) Cholecalciferol (Vitamin D3) 1,000 UNIT TABLET 1 TAB PO DAILY SUPPLEMENT ( Reported) Cyanocobalamin (Vitamin B-12) (Unknown Strength) TABLET (Unknown Dose) PO DAILY SUPPLEMENT (Reported) Finasteride 5 MG TABLET 1 TAB PO DAILY BPH (Reported) Linagliptin (Tradjenta) 5 MG TABLET 1 TAB PO DAILY DM (Reported) Metformin HCl 1,000 MG TABLET 1 TAB PO BID DM (Reported) Phenazopyridine HCl (Pyridium) 200 MG TABLET 1 TAB PO TID PAIN Phenazopyridine HCl (Pyridium) 200 MG TABLET 1 TAB PO TID DYSUIRA Tamsulosin HCl 0.4 MG CAP.ER.24H 1 CAP PO BID BPH (Reported) Timolol Maleate 0.5 % DROPS 1 GTT OPH DAILY BOTH EYES (Reported) Current Medications: Current Medications Sig/Lauren Start time Last Medication Dose Route Stop Time Status Admin Acetaminophen 650 MG Q6P PRN 11/05 1015 AC PO Acetaminophen 1,000 MG Q6P PRN 11/05 1015 AC IV Aspirin 325 MG ONCE ONE 11/04 1430 DC 11/04 PO 11/04 1431 1736 Baclofen 10 MG TID PRN 11/05 1015 AC PO Ceftazidime 0 .STK-MED ONE 11/04 1510 DC .ROUTE Ceftazidime 1,000 MG ONCE ONE 11/04 1430 DC 11/04 IV 11/04 1431 1515 Ceftriaxone Sodium 1,000 MG DAILY 11/05 0900 DC 11/05 IV 0824 Dextrose/Sodium 1,000 ML Q8H 11/05 0800 AC 11/05 Chloride IV 0821 Heparin Sodium 5,000 UNIT Q8 11/04 2200 AC 11/05 (Porcine) SC 0503 Insulin Aspart 0 TIDAC 11/05 0800 AC SC Magnesium Sulfate 1 GM ONCE ONE 11/05 0800 AC 11/05 Dextrose/Water 100 ML IV 11/05 1159 0820 Magnesium Sulfate 1 GM Q2H 11/04 2100 DC 11/04 Dextrose/Water 100 ML IV 11/05 0059 2246 Meropenem 1 GM IQ8 11/05 1000 AC IV Oxycodone HCl 5 MG Q6P PRN 11/05 1015 AC PO Sodium Chloride 1,000 ML .Q10H 11/04 1930 DC 11/05 IV 0503 Sodium Chloride 1,000 ML BOLUS ONE 11/04 1830 DC 11/04 IV 11/04 1929 1904 Sodium Chloride 1,000 ML BOLUS ONE 11/04 1415 DC 11/04 IV 11/04 1514 1436 Sodium Chloride 1,000 ML BOLUS ONE 11/04 1415 DC / IV 11/04 1514 1436 Sodium Chloride 1,000 ML BOLUS ONE 11/04 1330 DC / IV 11/04 1429 1345 Timolol Maleate 1 GTT DAILY 11/05 0900 AC 11/05 OPH 0825 Vancomycin HCl 1,000 MG ONCE ONE 11/04 1430 DC 11/04 Sodium Chloride 250 ML IV 11/04 1529 1736 Past History Medical History Blood Transfusion Hx: No Neurological: multiple sclerosis, SHORT TERM MEMORY LOSS EENT: glaucoma, TONSILLECTOMY Cardiovascular: hyperlipidemia Respiratory: NONE Gastrointestinal: NONE Hepatic: NONE Renal: UTI Musculoskeletal: osteoarthritis Psychiatric: NONE Endocrine: diabetes Blood Disorders: NONE Cancer(s): prostate cancer STAFF RESPIRATORY THERAPIST/Reproductive: NONE Other Medical Hx: Recurrent urinary tract infections Surgical History Pertinent Surgical History: Prostate procedure Family History Relations & Conditions If Any: FATHER (Leukemia). MOTHER (Ovarian Cancer). Psychosocial History Where Do You Live? Home Services at Home: None Smoking Status: Never Smoked Functional Ability ADLs Independent: dressing, eating, toileting, bathing. Ambulation: independent IADLs Independent: housework, food prep, telephone, medication admin. Employment History Retired? yes Review of Systems Review of Systems Constitutional: Denies: no symptoms. EENTM: Denies: no symptoms. Cardiovascular: Denies: no symptoms. Respiratory: Denies: no symptoms. GI: Reports: bloating. Genitourinary: Reports: dysuria (TORRES IN PLACE-CLEAR YELLOWOUT). Musculoskeletal: Denies: no symptoms. Skin: Denies: no symptoms. Exam & Diagnostic Data Vital Signs and I&O Vital Signs Date Time Temp Pulse Resp B/P B/P Pulse O2 O2 Flow FiO2 Mean Ox Delivery Rate 11/05 0400 94 Nasal 2.0L Cannula 11/05 0000 93 Nasal 2.0L Cannula 11/05 0000 99.6 86 18 104/58 93 Nasal 3.0L Cannula 11/04 2004 93 Nasal 3.0L Cannula 11/04 1825 97.5 94 18 90/54 95 Nasal 3.0L Cannula 11/04 1621 97.3 96 18 95/54 93 Room Air 11/04 1517 96 115/57 11/04 1417 99.9 93 16 88/56 93 Room Air 11/04 1346 92 20 92/61 93 Room Air 11/04 1254 98.8 94 18 99/58 92 Room Air Intake & Output 11/05 0800 11/05 0000 11/04 1600 11/04 0800 11/04 0000 Intake Total 1135 3142 500 Output Total 800 1090 Balance 335 2052 500 Intake, IV 1135 3142 500 Intake, Oral 0 0 Number 1 0 Bowel Movements Output, Urine 800 1090 Patient 183 lb 160 lb Weight Weight Bed scale Estimated Measurement Method Physical Exam General Appearance: well developed/nourished, no apparent distress Head: atraumatic Neck: normal inspection Respiratory: normal breath sounds Cardiovascular: regular rate/rhythm Gastrointestinal: normal bowel sounds, soft Rectal: normal exam Back: no vertebral tenderness Extremities: normal inspection Skin: intact, normal color, warm/dry Reproductive: Normal male genitalia Last 24 Hours of Labs: Laboratory Tests 11/05 11/05 11/05 0835 0500 0100 Chemistry Sodium (137 - 145 mmol/L) 144 Potassium (3.5 - 5.1 mmol/L) 4.2 Chloride (98 - 107 mmol/L) 112 H Carbon Dioxide (22 - 30 mmol/L) 22 Anion Gap (5 - 16) 10 BUN (9 - 20 mg/dL) 27 H Creatinine (0.7 - 1.2 mg/dL) 1.1 Estimated GFR (>60 ml/min) > 60 Glucose (65 - 99 mg/dL) 64 L Lactic Acid (0.7 - 2.1 mmol/L) 1.6 Calcium (8.4 - 10.2 mg/dL) 7.5 L Phosphorus (2.5 - 4.5 mg/dL) 4.0 Magnesium (1.6 - 2.3 mg/dL) 1.9 Total Bilirubin (0.2 - 1.3 mg/dL) 0.5 AST (17 - 59 U/L) 246 H ALT (21 - 72 U/L) 245 H Troponin I (<0.11 ng/ml) 1.01 *H Albumin (3.5 - 5.0 g/dL) 2.3 L Coagulation PT (9.4 - 12.5 SEC) 15.0 H INR (0.90 - 1.17) 1.37 H APTT (25 - 37 SEC) 34 Hematology CBC w Diff MAN DIFF ORDERED WBC (4.8 - 10.8 /CUMM) 23.6 H RBC (4.70 - 6.10 /CUMM) 4.41 L Hgb (14.0 - 18.0 G/DL) 12.7 L Hct (42 - 52 %) 38.3 L MCV (80.0 - 94.0 FL) 86.7 MCH (27.0 - 31.0 PG) 28.7 MCHC (33.0 - 37.0 G/DL) 33.1 RDW (11.5 - 14.5 %) 16.5 H Plt Count (130 - 400 /CUMM) 147 MPV (7.4 - 10.4 FL) 8.2 Gran % (42.2 - 75.2 %) 93.1 H Lymphocytes % (20.5 - 51.1 %) 2.9 L Monocytes % (1.7 - 9.3 %) 4.0 Eosinophils % (0 - 5 %) 0 Basophils % (0.0 - 2.0 %) 0 Absolute Granulocytes (1.4 - 6.5 /CUMM) 22.0 H Segmented Neutrophils (42.2 - 75.2 %) 57 Band Neutrophils (0.0 - 5.0 %) 34 H Absolute Lymphocytes (1.2 - 3.4 /CUMM) 0.7 L Lymphocytes (20.5 - 51.1 %) 4 L Monocytes (1.7 - 9.3 %) 4 Absolute Monocytes (0.10 - 0.60 /CUMM) 0.9 H Absolute Eosinophils (0.0 - 0.7 /CUMM) 0 Basophils (0.0 - 2.0 %) 1 Absolute Basophils (0.0 - 0.2 /CUMM) 0 Platelet Estimate (ADEQUATE) ADEQUATE Poikilocytosis 3+ Anisocytosis 1+ Ana Cells 3+ 11/041 2120 1925 1925 1706 Chemistry Sodium (137 - 145 mmol/L) 143 Potassium (3.5 - 5.1 mmol/L) 4.1 Chloride (98 - 107 mmol/L) 114 H Carbon Dioxide (22 - 30 mmol/L) 21 L Anion Gap (5 - 16) 9 BUN (9 - 20 mg/dL) 28 H Creatinine (0.7 - 1.2 mg/dL) 1.3 H Estimated GFR (>60 ml/min) 54 L Glucose (65 - 99 mg/dL) 83 Lactic Acid (0.7 - 2.1 mmol/L) Cancelled 3.5 H 4.6 H Calcium (8.4 - 10.2 mg/dL) 7.3 L Phosphorus (2.5 - 4.5 mg/dL) 2.1 L Magnesium (1.6 - 2.3 mg/dL) 1.3 L Total Bilirubin (0.2 - 1.3 mg/dL) 0.3 AST (17 - 59 U/L) 166 H ALT (21 - 72 U/L) 138 H Troponin I (<0.11 ng/ml) 1.08 *H Albumin (3.5 - 5.0 g/dL) 2.0 L Coagulation PT (9.4 - 12.5 SEC) 14.7 H INR (0.90 - 1.17) 1.34 H APTT (25 - 37 SEC) 26 Toxicology Urine Opiates Screen (>2000 NG/ML) < 100 Methadone Screen (>300 NG/ML) < 40 Barbiturate Screen (>200 NG/ML) < 60 Ur Phencyclidine Scrn (>25 NG/ML) < 6.00 Amphetamines Screen (>1000 NG/ML) < 100 U Benzodiazepines Scrn (>200 NG/ML) < 85 Urine Cocaine Screen (>300 NG/ML) < 50 Urine Cannabis Screen (>50 NG/ML) < 5.00 16 0616 1600 1315 Chemistry Sodium (137 - 145 mmol/L) 142 Potassium (3.5 - 5.1 mmol/L) 4.5 Chloride (98 - 107 mmol/L) 108 H Carbon Dioxide (22 - 30 mmol/L) 21 L Anion Gap (5 - 16) 13 BUN (9 - 20 mg/dL) 29 H Creatinine (0.7 - 1.2 mg/dL) 1.6 H Estimated GFR (>60 ml/min) 42 L BUN/Creatinine Ratio (7 - 25 %) 18.1 Glucose (65 - 99 mg/dL) 153 H Lactic Acid (0.7 - 2.1 mmol/L) 6.0 H Calcium (8.4 - 10.2 mg/dL) 8.9 Total Bilirubin (0.2 - 1.3 mg/dL) 0.4 AST (17 - 59 U/L) 114 H ALT (21 - 72 U/L) 84 H Alkaline Phosphatase (< 127 U/L) 76 Creatine Kinase (55 - 170 U/L) 834 H Troponin I (<0.11 ng/ml) 1.10 *H Total Protein (6.3 - 8.2 g/dL) 5.4 L Albumin (3.5 - 5.0 g/dL) 2.8 L Globulin (1.9 - 4.2 gm/dL) 2.6 Albumin/Globulin Ratio (1.1 - 2.2 %) 1.1 Hematology CBC w Diff MAN DIFF ORDERED WBC (4.8 - 10.8 /CUMM) 14.3 H RBC (4.70 - 6.10 /CUMM) 4.91 Hgb (14.0 - 18.0 G/DL) 14.0 Hct (42 - 52 %) 42.8 MCV (80.0 - 94.0 FL) 87.1 MCH (27.0 - 31.0 PG) 28.5 MCHC (33.0 - 37.0 G/DL) 32.7 L RDW (11.5 - 14.5 %) 16.4 H Plt Count (130 - 400 /CUMM) 226 MPV (7.4 - 10.4 FL) 7.7 Gran % (42.2 - 75.2 %) 97.1 H Lymphocytes % (20.5 - 51.1 %) 2.5 L Monocytes % (1.7 - 9.3 %) 0.4 L Eosinophils % (0 - 5 %) 0 Basophils % (0.0 - 2.0 %) 0 Absolute Granulocytes (1.4 - 6.5 /CUMM) 13.9 H Segmented Neutrophils (42.2 - 75.2 %) 82 H Band Neutrophils (0.0 - 5.0 %) 12 H Absolute Lymphocytes (1.2 - 3.4 /CUMM) 0.4 L Lymphocytes (20.5 - 51.1 %) 4 L Monocytes (1.7 - 9.3 %) 2 Absolute Monocytes (0.10 - 0.60 /CUMM) 0.1 Absolute Eosinophils (0.0 - 0.7 /CUMM) 0 Absolute Basophils (0.0 - 0.2 /CUMM) 0 Platelet Estimate (ADEQUATE) ADEQUATE Normocytic RBCs VERIFIED Normochromic RBCs VERIFIED Urines Urine Color (YEL,AMB,STR) YEL Urine Clarity (CLEAR) TURBD H Urine pH (5.0 - 8.0) 8.5 H Ur Specific [place] (1.001 - 1.035) 1.010 Urine Protein (NEG,<30 MG/DL) 100 H Urine Ketones (NEG) NEG Urine Nitrite (NEG) POS H Urine Bilirubin (NEG) NEG Urine Urobilinogen (0.1 - 1.0 EU/dl) 1.0 Ur Leukocyte Esterase (NEG) LARGE H Ur Microscopic SEDIMENT EXAMINED Urine RBC (0 - 5 /HPF) >75 H Urine WBC (0 - 2 /HPF) 1-3 H Ur Epithelial Cells (NONE,FEW) RARE Urine Bacteria (NEG/NONE) PACKD H Urine Hemoglobin (NEG) LARGE H Urine Glucose (N MG/DL) NEG Imaging Results: PATIENT: GORDY DUNCAN PRESENT AGE: 77 PATIENT ACCOUNT NO: [id number] : 42 LOCATION: [facility] ORDERING PHYSICIAN: Kyree PEREZ SERVICE DATE: 11/04/17 EXAM TYPE: CAT - CT ABD & PELVIS W/O IV CONTRAS EXAMINATION: CT ABDOMEN AND PELVIS WITHOUT CONTRAST CLINICAL INFORMATION: Diarrhea. Rule out colitis. COMPARISON: None. TECHNIQUE: Multidetector volumetric imaging was performed from the superior aspect of the liver through the pubic symphysis. Sagittal and coronal reformatted images were obtained on the technologist workstation. DLP: 391.62 mGy-cm. FINDINGS: LUNG BASES: Bibasilar atelectatic changes are seen. Lungs are otherwise unremarkable. A densely calcified pericardial lymph node is seen. Moderate coronary artery calcifications are noted. LIVER, GALLBLADDER, AND BILIARY TREE: The liver is normal in size, shape, and attenuation. There is a 1.3 cm diameter fluid attenuation mass in the left lobe of the liver, adjacent to the gallbladder (series 2, image 26, segment 4B), consistent with a cyst. No suspicious focal hepatic lesion on noncontrast imaging. No biliary ductal dilatation is present. The gallbladder is hydropic, measuring 5.3 cm transversely and approximately 9 cm longitudinally. There is no evidence of radiopaque gallstones, gallbladder wall thickening, or obvious pericholecystic inflammatory changes. PANCREAS: Unremarkable on noncontrast imaging. SPLEEN, ADRENAL GLANDS: Unremarkable on noncontrast imaging. KIDNEYS AND URETERS: The kidneys are normal in size, shape, and attenuation. There are bilateral cysts, including an exophytic upper pole right renal 2.3 cm diameter cyst with partial mural calcifications, a large approximately 5 cm diameter parapelvic mid left renal cyst, a 2.3 cm partially exophytic cortical cyst in the mid left kidney, subtle 1 cm diameter cortical cyst in the upper pole of the left kidney and a 3 cm cortical cyst in the mid left kidney. There is a nonobstructing 0.4 cm mid right renal calcification, a 0.6 cm mid left renal calcification and a 0.8 cm mid left renal calcification. There is mild bilateral hydronephrosis and prominent bilateral perinephric stranding and thickening of Gerota's fascia seen. The ureters bilaterally are mildly dilated and tortuous in their course to the bladder. No definite ureteral calculi are seen. BLADDER: Bladder is well distended and demonstrates a Torres catheter in its inferior and dependent base. PELVIC VISCERA: Multiple radiation seed implants are seen within the prostate gland. Seminal vesicles bilaterally are symmetric. GASTROINTESTINAL TRACT: Small and large bowel loops are decompressed and unremarkable. No evidence of acute colitis or bowel obstruction or perforation is seen. ABDOMINAL WALL: No significant hernia is appreciated. LYMPH NODES, VASCULAR: There are scattered subcentimeter sized retroperitoneal and mesenteric lymph nodes without pathologic enlargement. Abdominal aorta is normal in caliber and demonstrates moderate atherosclerotic calcifications, which also involve several of the branch vessels, including the celiac axis, SMA, and both renal arteries, left greater than right. There is also ectasia/aneurysmal dilatation of the celiac axis and the SMA. OSSEOUS STRUCTURES: A vertebral hemangioma is partially included in the right side of the T8 vertebral body. There is a S-shaped thoracolumbar scoliosis. Severe degenerative disc disease is seen throughout the lumbosacral spine with relative sparing of the L4-L5 level. IMPRESSION: 1. Mild bilateral hydroureteronephrosis is seen all the way down to the bladder with no definite obstructing stone or mass seen. Bladder is significantly distended, despite Torres catheter. Findings may be related to chronic vesicoureteral reflux. Given the extensive perinephric stranding and thickening of Gerota's fascia, subtle superimposed pyelonephritis cannot be excluded and close clinical correlation is requested. There is also evidence of bilateral nonobstructing renal calculi. 2. Small and large bowel loops are decompressed and unremarkable. No evidence of acute colitis is seen. 3. Multiple prostate seed implants are seen, presumably related to prostate cancer treatment. 4. Moderate atherosclerotic disease, involving several of the aortic branch vessels, including coronary arteries and the mesenteric and renal arteries. There is also ectasia/aneurysmal dilatation of the mesenteric arteries. 5. Bilateral renal cysts and one hepatic cyst. 6. Hydropic gallbladder. Gallbladder otherwise unremarkable. 7. Partially imaged vertebral hemangioma at T8. Assessment/Plan Assessment/Plan PT WITH BRIEF RETENTION DUE TO NON FUNCTIONING TORRES -THAT WORSENED SEPSIS/PLAN IS TX INFECTION/DEHYDRATION NOW: WILL NEED CYSTOSCOPY-SUPRAPUBIC TUBE NEXT MONDAY. Copies To: Karlos Bauman MD Consult Acknowledgment - Thank you for your consult request. Attending MD Review Statement Attending Statement Attending MD Statement: examined this patient, discuss w/resident/PA/CREATIVE/ART DIRECTOR Attending Assessment/Plan: SEPSIS EXACERBATED BY URINARY RETENTION DUE TO NON-FUNCTIONING TORRES: KEEP ABX, IVF FOR NOW. WILL NEED CYSTOSCOSPY-SPT THIS COMING MONDAY
--- NOTE | 2017-11-05 11:28 | Cons- Cardiology ---
General Information and HPI Consulting Request Date of Consult: 11/05/17 Requested By: Arley Bey MD Reason for Consult: Elevated troponin Source of Information: patient, old records History of Present Illness: This is a pleasant 77-year-old male with a past medical history of prostate cancer, multiple sclerosis, chronic indwelling Contreras, and diabetes who presents to [facility] with a chief complaint of lethargy and decreased responsiveness along with diarrhea. Patient denied any new symptoms of chest pain, palpitations, or shortness of breath. He denies any known history of ischemic heart disease. Denies orthopnea or paroxysmal nocturnal dyspnea. He was found to be hypotensive on presentation and also noted to have elevated troponins. He was found to have gram-negative rods in his urine and blood. On my interview with the patient this morning and he was resting comfortably and was alert and responsive. Allergies/Medications Allergies: Coded Allergies: NO KNOWN ALLERGIES (01/16/16) Home Med List: Atorvastatin Calcium 80 MG TABLET 1 TAB PO DAILY CHOLESTEROL (Reported) Baclofen 10 MG TABLET 1 TAB PO PRN MUSCLE SPASMS (Reported) Bethanechol Chloride 25 MG TABLET 0.5 TAB PO BID BLADDER (Reported) Cholecalciferol (Vitamin D3) 1,000 UNIT TABLET 1 TAB PO DAILY SUPPLEMENT ( Reported) Cyanocobalamin (Vitamin B-12) (Unknown Strength) TABLET (Unknown Dose) PO DAILY SUPPLEMENT (Reported) Finasteride 5 MG TABLET 1 TAB PO DAILY BPH (Reported) Linagliptin (Tradjenta) 5 MG TABLET 1 TAB PO DAILY DM (Reported) Metformin HCl 1,000 MG TABLET 1 TAB PO BID DM (Reported) Phenazopyridine HCl (Pyridium) 200 MG TABLET 1 TAB PO TID PAIN Phenazopyridine HCl (Pyridium) 200 MG TABLET 1 TAB PO TID DYSUIRA Tamsulosin HCl 0.4 MG CAP.ER.24H 1 CAP PO BID BPH (Reported) Timolol Maleate 0.5 % DROPS 1 GTT OPH DAILY BOTH EYES (Reported) Current Medications: Current Medications Sig/Lauren Start time Last Medication Dose Route Stop Time Status Admin Acetaminophen 650 MG Q6P PRN 11/05 1015 AC PO Acetaminophen 1,000 MG Q6P PRN 11/05 1015 AC IV Aspirin 325 MG ONCE ONE 11/04 1430 DC 11/04 PO 11/04 1431 1736 Baclofen 10 MG TID PRN 11/05 1015 AC PO Ceftazidime 0 .STK-MED ONE 11/04 1510 DC .ROUTE Ceftazidime 1,000 MG ONCE ONE 11/04 1430 DC 11/04 IV 11/04 1431 1515 Ceftriaxone Sodium 1,000 MG DAILY 11/05 0900 DC 11/05 IV 0824 Dextrose/Sodium 1,000 ML Q8H 11/05 0800 AC 11/05 Chloride IV 0821 Heparin Sodium 5,000 UNIT Q8 11/04 2200 AC 11/05 (Porcine) SC 0503 Insulin Aspart 0 TIDAC 11/05 0800 AC SC Magnesium Sulfate 1 GM ONCE ONE 11/05 0800 AC 11/05 Dextrose/Water 100 ML IV 11/05 1159 0820 Magnesium Sulfate 1 GM Q2H 11/04 2100 DC 11/04 Dextrose/Water 100 ML IV 11/05 0059 2246 Meropenem 1 GM IQ8 11/05 1000 AC IV Oxycodone HCl 5 MG Q6P PRN 11/05 1015 AC PO Sodium Chloride 1,000 ML .Q10H 11/04 1930 DC 11/05 IV 0503 Sodium Chloride 1,000 ML BOLUS ONE 11/04 1830 DC 11/04 IV 11/04 1929 1904 Sodium Chloride 1,000 ML BOLUS ONE 11/04 1415 DC 06/ IV 11/04 1514 1436 Sodium Chloride 1,000 ML BOLUS ONE 11/04 1415 DC 06/ IV 11/04 1514 1436 Sodium Chloride 1,000 ML BOLUS ONE 11/04 1330 DC 11/04 IV 11/04 1429 1345 Timolol Maleate 1 GTT DAILY 11/05 0900 AC 11/05 OPH 0825 Vancomycin HCl 1,000 MG ONCE ONE 11/04 1430 DC 11/04 Sodium Chloride 250 ML IV 11/04 1529 1736 Review of Systems Review of Systems: Review of systems as per HPI. The remainder of a 10 point review of systems was reviewed and was otherwise negative. 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 MOTHER (Ovarian Cancer). Psychosocial History Where Do You Live? Home Services at Home: None Smoking Status: Never Smoked Functional Ability ADLs Independent: dressing, eating, toileting, bathing. Ambulation: independent IADLs Independent: housework, food prep, telephone, medication admin. Exam & Diagnostic Data Vital Signs and I&O Vital Signs Date Time Temp Pulse Resp B/P B/P Pulse O2 O2 Flow FiO2 Mean Ox Delivery Rate 11/05 0400 94 Nasal 2.0L Cannula 11/05 0000 93 Nasal 2.0L Cannula 11/05 0000 99.6 86 18 104/58 93 Nasal 3.0L Cannula 11/04 2005 93 Nasal 3.0L Cannula 11/04 1825 97.5 94 18 90/54 95 Nasal 3.0L Cannula 11/04 1621 97.3 96 18 95/54 93 Room Air 11/04 1517 96 115/57 11/04 1417 99.9 93 16 88/56 93 Room Air 11/04 1346 92 20 92/61 93 Room Air 11/04 1254 98.8 94 18 99/58 92 Room Air Intake & Output 11/05 1600 11/05 0800 11/05 0000 11/04 1600 11/04 0800 11/04 0000 Intake Total 1135 3142 500 Output Total 800 1090 Balance 335 2052 500 Intake, IV 1135 3142 500 Intake, Oral 0 0 Number 1 0 Bowel Movements Output, Urine 800 1090 Patient 183 lb 160 lb Weight Weight Bed scale Estimated Measurement Method Physical Exam: General: no apparent distress. Eyes: No obvious scleral icterus. HEENT: No jugular venous distention or abnormal jugular venous pulsations. Cardiovascular: Normal intensity S1/S2. Regular Respiratory: Mildly decreased air entry at the bases without rales Abdomen: no guarding or rebound tenderness. Musculoskeletal: No clubbing or cyanosis noted Skin: warm Neurologic: Alert Labs/Ilan Results: Laboratory Tests 11/05 11/05 11/05 0835 0500 0100 Chemistry Sodium (137 - 145 mmol/L) 144 Potassium (3.5 - 5.1 mmol/L) 4.2 Chloride (98 - 107 mmol/L) 112 H Carbon Dioxide (22 - 30 mmol/L) 22 Anion Gap (5 - 16) 10 BUN (9 - 20 mg/dL) 27 H Creatinine (0.7 - 1.2 mg/dL) 1.1 Estimated GFR (>60 ml/min) > 60 Glucose (65 - 99 mg/dL) 64 L Lactic Acid (0.7 - 2.1 mmol/L) 1.6 Calcium (8.4 - 10.2 mg/dL) 7.5 L Phosphorus (2.5 - 4.5 mg/dL) 4.0 Magnesium (1.6 - 2.3 mg/dL) 1.9 Total Bilirubin (0.2 - 1.3 mg/dL) 0.5 AST (17 - 59 U/L) 246 H ALT (21 - 72 U/L) 245 H Troponin I (<0.11 ng/ml) 1.01 *H Albumin (3.5 - 5.0 g/dL) 2.3 L Coagulation PT (9.4 - 12.5 SEC) 15.0 H INR (0.90 - 1.17) 1.37 H APTT (25 - 37 SEC) 34 Hematology CBC w Diff MAN DIFF ORDERED WBC (4.8 - 10.8 /CUMM) 23.6 H RBC (4.70 - 6.10 /CUMM) 4.41 L Hgb (14.0 - 18.0 G/DL) 12.7 L Hct (42 - 52 %) 38.3 L MCV (80.0 - 94.0 FL) 86.7 MCH (27.0 - 31.0 PG) 28.7 MCHC (33.0 - 37.0 G/DL) 33.1 RDW (11.5 - 14.5 %) 16.5 H Plt Count (130 - 400 /CUMM) 147 MPV (7.4 - 10.4 FL) 8.2 Gran % (42.2 - 75.2 %) 93.1 H Lymphocytes % (20.5 - 51.1 %) 2.9 L Monocytes % (1.7 - 9.3 %) 4.0 Eosinophils % (0 - 5 %) 0 Basophils % (0.0 - 2.0 %) 0 Absolute Granulocytes (1.4 - 6.5 /CUMM) 22.0 H Segmented Neutrophils (42.2 - 75.2 %) 57 Band Neutrophils (0.0 - 5.0 %) 34 H Absolute Lymphocytes (1.2 - 3.4 /CUMM) 0.7 L Lymphocytes (20.5 - 51.1 %) 4 L Monocytes (1.7 - 9.3 %) 4 Absolute Monocytes (0.10 - 0.60 /CUMM) 0.9 H Absolute Eosinophils (0.0 - 0.7 /CUMM) 0 Basophils (0.0 - 2.0 %) 1 Absolute Basophils (0.0 - 0.2 /CUMM) 0 Platelet Estimate (ADEQUATE) ADEQUATE Poikilocytosis 3+ Anisocytosis 1+ [place] Cells 3+ 11/04 1706 Chemistry Sodium (137 - 145 mmol/L) 143 Potassium (3.5 - 5.1 mmol/L) 4.1 Chloride (98 - 107 mmol/L) 114 H Carbon Dioxide (22 - 30 mmol/L) 21 L Anion Gap (5 - 16) 9 BUN (9 - 20 mg/dL) 28 H Creatinine (0.7 - 1.2 mg/dL) 1.3 H Estimated GFR (>60 ml/min) 54 L Glucose (65 - 99 mg/dL) 83 Lactic Acid (0.7 - 2.1 mmol/L) Cancelled 3.5 H 4.6 H Calcium (8.4 - 10.2 mg/dL) 7.3 L Phosphorus (2.5 - 4.5 mg/dL) 2.1 L Magnesium (1.6 - 2.3 mg/dL) 1.3 L Total Bilirubin (0.2 - 1.3 mg/dL) 0.3 AST (17 - 59 U/L) 166 H ALT (21 - 72 U/L) 138 H Troponin I (<0.11 ng/ml) 1.08 *H Albumin (3.5 - 5.0 g/dL) 2.0 L Coagulation PT (9.4 - 12.5 SEC) 14.7 H INR (0.90 - 1.17) 1.34 H APTT (25 - 37 SEC) 26 Toxicology Urine Opiates Screen (>2000 NG/ML) < 100 Methadone Screen (>300 NG/ML) < 40 Barbiturate Screen (>200 NG/ML) < 60 Ur Phencyclidine Scrn (>25 NG/ML) < 6.00 Amphetamines Screen (>1000 NG/ML) < 100 U Benzodiazepines Scrn (>200 NG/ML) < 85 Urine Cocaine Screen (>300 NG/ML) < 50 Urine Cannabis Screen (>50 NG/ML) < 5.00 11/04 11/04 1600 1315 Chemistry Sodium (137 - 145 mmol/L) 142 Potassium (3.5 - 5.1 mmol/L) 4.5 Chloride (98 - 107 mmol/L) 108 H Carbon Dioxide (22 - 30 mmol/L) 21 L Anion Gap (5 - 16) 13 BUN (9 - 20 mg/dL) 29 H Creatinine (0.7 - 1.2 mg/dL) 1.6 H Estimated GFR (>60 ml/min) 42 L BUN/Creatinine Ratio (7 - 25 %) 18.1 Glucose (65 - 99 mg/dL) 153 H Lactic Acid (0.7 - 2.1 mmol/L) 6.0 H Calcium (8.4 - 10.2 mg/dL) 8.9 Total Bilirubin (0.2 - 1.3 mg/dL) 0.4 AST (17 - 59 U/L) 114 H ALT (21 - 72 U/L) 84 H Alkaline Phosphatase (< 127 U/L) 76 Creatine Kinase (55 - 170 U/L) 834 H Troponin I (<0.11 ng/ml) 1.10 *H Total Protein (6.3 - 8.2 g/dL) 5.4 L Albumin (3.5 - 5.0 g/dL) 2.8 L Globulin (1.9 - 4.2 gm/dL) 2.6 Albumin/Globulin Ratio (1.1 - 2.2 %) 1.1 Hematology CBC w Diff MAN DIFF ORDERED WBC (4.8 - 10.8 /CUMM) 14.3 H RBC (4.70 - 6.10 /CUMM) 4.91 Hgb (14.0 - 18.0 G/DL) 14.0 Hct (42 - 52 %) 42.8 MCV (80.0 - 94.0 FL) 87.1 MCH (27.0 - 31.0 PG) 28.5 MCHC (33.0 - 37.0 G/DL) 32.7 L RDW (11.5 - 14.5 %) 16.4 H Plt Count (130 - 400 /CUMM) 226 MPV (7.4 - 10.4 FL) 7.7 Gran % (42.2 - 75.2 %) 97.1 H Lymphocytes % (20.5 - 51.1 %) 2.5 L Monocytes % (1.7 - 9.3 %) 0.4 L Eosinophils % (0 - 5 %) 0 Basophils % (0.0 - 2.0 %) 0 Absolute Granulocytes (1.4 - 6.5 /CUMM) 13.9 H Segmented Neutrophils (42.2 - 75.2 %) 82 H Band Neutrophils (0.0 - 5.0 %) 12 H Absolute Lymphocytes (1.2 - 3.4 /CUMM) 0.4 L Lymphocytes (20.5 - 51.1 %) 4 L Monocytes (1.7 - 9.3 %) 2 Absolute Monocytes (0.10 - 0.60 /CUMM) 0.1 Absolute Eosinophils (0.0 - 0.7 /CUMM) 0 Absolute Basophils (0.0 - 0.2 /CUMM) 0 Platelet Estimate (ADEQUATE) ADEQUATE Normocytic RBCs VERIFIED Normochromic RBCs VERIFIED Urines Urine Color (YEL,AMB,STR) YEL Urine Clarity (CLEAR) TURBD H Urine pH (5.0 - 8.0) 8.5 H Ur Specific Cornish (1.001 - 1.035) 1.010 Urine Protein (NEG,<30 MG/DL) 100 H Urine Ketones (NEG) NEG Urine Nitrite (NEG) POS H Urine Bilirubin (NEG) NEG Urine Urobilinogen (0.1 - 1.0 EU/dl) 1.0 Ur Leukocyte Esterase (NEG) LARGE H Ur Microscopic SEDIMENT EXAMINED Urine RBC (0 - 5 /HPF) >75 H Urine WBC (0 - 2 /HPF) 1-3 H Ur Epithelial Cells (NONE,FEW) RARE Urine Bacteria (NEG/NONE) PACKD H Urine Hemoglobin (NEG) LARGE H Urine Glucose (N MG/DL) NEG Diagnostic Data EKG Results Tracing was personally reviewed and shows a sinus rhythm at 93 bpm CXR Results Low lung volumes with bibasilar atelectatic changes. Other Results Telemetry tracings were personally reviewed and shows sinus rhythm Assessment/Plan Assessment/Plan 1. Sepsis of urologic origin 2. Elevated troponin likely due to sepsis/DEVONTE 3. History of multiple sclerosis 4. Diabetes mellitus 5. Acute kidney injury, improved The patient's elevated troponin is likely due to the combination of sepsis and acute kidney injury; acute coronary syndrome/myocardial infarction is unlikely and the troponin curve has remained flat. Would obtain an echocardiogram to assess for any regional wall motion abnormality. Would keep on telemetry for 24 hours to look for any arrhythmia. No evidence of decompensated heart failure. Treatment of sepsis per the medical team and infectious disease. Royce Moe MD [facility] Consult Acknowledgment - Thank you for your consult request.
[2017-11-05 16:00] VITALS: BP 110/74
--- NOTE | 2017-11-05 19:29 | ECHOCARDIOGRAM REPORT ---
GORDY DUNCAN Age: 77 : 1940 Gender: M Exam Date: 11/05/2017 09:01 Exam Location: [facility] Ht (in): 70 Wt (lb): 160 BSA: 1.89 BP: 104 / 58 Ordering Physician: Rikki Haq MD Referring Physician: Francis Moe M.D. Technologist: Micaela Du GERALDINE Room Number: 107 Indications: HYPOTENSION Rhythm: Technical Quality: Fair FINDINGS Left Ventricle Normal global left ventricular size, wall thickness, systolic function with no obvious regional wall motion abnormalities. Left ventricular ejection fraction is estimated at 55 %. Right Ventricle Normal right ventricular size and function. Right Atrium Normal right atrial size. Left Atrium Normal left atrial size. Mitral Valve Structurally normal mitral valve. Trace mitral regurgitation. Aortic Valve Structurally normal trileaflet aortic valve. No aortic stenosis. Tricuspid Valve Structurally normal tricuspid valve. No evidence of pulmonary hypertension. Trace tricuspid regurgitation. Pulmonic Valve Pulmonic valve not well visualized, grossly normal. Pericardium No pericardial effusion. Great Vessels Normal size aortic root. CONCLUSIONS Normal global left ventricular size, wall thickness, systolic function with no obvious regional wall motion abnormalities. Left ventricular ejection fraction is estimated at 55 %. Normal right ventricular size and function. No evidence of pulmonary hypertension. No pericardial effusion. Francis Moe M.D. (Electronically Signed) Final Date: 05 November 2017 19:28 MEASUREMENTS (Male / Female) Normal Values 2D ECHO LV Diastolic Diameter PLAX 4.4 cm 4.2 - 5.9 / 3.9 - 5.3 cm LV Systolic Diameter PLAX 2.7 cm 2.1 - 4.0 cm LV Fractional Shortening PLAX 38.6 % 25 - 46 % LV Ejection Fraction 2D Teich 69.2 % IVS Diastolic Thickness 1.1 cm LVPW Diastolic Thickness 1.1 cm LV Relative Wall Thickness 0.5 RV Internal Dim ED PLAX 2.5 cm 1.9 - 3.8 cm LVOT Diameter 1.9 cm Aortic Root Diameter 3.6 cm LA Systolic Diameter LX 3.6 cm 3.0 - 4.0 / 2.7 - 3.8 cm LA Volume 23.0 cm 18 - 58 / 22 - 52 cm Ascending Aorta Diameter 3.1 cm DOPPLER AV Peak Velocity 123.0 cm/s AV Peak Gradient 6.1 mmHg AV Mean Velocity 93.7 cm/s AV Mean Gradient 4.0 mmHg AV Velocity Time Integral 24.1 cm LVOT Peak Velocity 104.0 cm/s LVOT Peak Gradient 4.3 mmHg LVOT Mean Velocity 71.3 cm/s LVOT Mean Gradient 2.0 mmHg LVOT Velocity Time Integral 20.3 cm LVOT Stroke Volume 57.6 cm AV Area Cont Eq vti 2.4 cm AV Area Cont Eq pk 2.4 cm MV Peak Velocity 89.9 cm/s MV Peak Gradient 3.2 mmHg MV Mean Velocity 53.0 cm/s MV Mean Gradient 1.0 mmHg Mitral E Point Velocity 74.5 cm/s Mitral A Point Velocity 74.0 cm/s Mitral E to A Ratio 1.0 MV PHT Velocity 85.1 cm/s MV Deceleration Taylor 444.0 cm/s MV Pressure Half Time 57.5 ms MV Area PHT 3.8 cm MV Deceleration Time 246.0 ms TR Peak Velocity 210.0 cm/s TR Peak Gradient 17.6 mmHg Right Atrial Pressure 5.0 mmHg Pulmonary Artery Systolic Pressu 22.6 mmHg Right Ventricular Systolic Press 22.6 mmHg PV Peak Velocity 70.2 cm/s PV Peak Gradient 2.0 mmHg PV Mean Velocity 47.9 cm/s PV Mean Gradient 1.0 mmHg PV Velocity Time Integral 13.7 cm LV E' Lateral Velocity 10.6 cm/s Mitral E to LV E' Lateral Ratio 7.0 LV E' Septal Velocity 5.9 cm/s Mitral E to LV E' Septal Ratio 12.5
[2017-11-06] VITALS: BP 142/78
[2017-11-06 05:05] LABS: ABSOLUTE BASOPHIL COUNT 0 /CUMM (0.0-0.2); ABSOLUTE EOSINOPHIL COUNT 0 /CUMM (0.0-0.7); ABSOLUTE GRANULOCYTE CT 19.9 /CUMM (1.4-6.5); ABSOLUTE LYMPH COUNT 0.5 /CUMM (1.2-3.4); ABSOLUTE MONOCYTE COUNT 0.6 /CUMM (0.10-0.60); BASOPHIL % 0 % (0.0-2.0); EOSINOPHIL % 0.2 % (0-5); GRANULOCYTE % 94.1 % (42.2-75.2); MEAN CORPUSCULAR HGB CONC 34.2 G/DL (33.0-37.0); MEAN CORPUSCULAR VOLUME 84.9 FL (80.0-94.0); MEAN PLATELET VOLUME 8.3 FL (7.4-10.4); PLATELET COUNT 105 /CUMM (130-400); RBC DISTRIBUTION WIDTH 16.4 % (11.5-14.5); RED BLOOD CELL CT 3.89 /CUMM (4.70-6.10); WHITE BLOOD CELL COUNT 21.2 /CUMM (4.8-10.8)
--- NOTE | 2017-11-06 07:11 | PN- Resident CRCU ---
SeverinoRikki 11/06/17 0711: Subjective HPI/CRCU Issues: Reviewed the patient lying comfortably on the bed he is alert oriented to time place and person reports to have slept very well like a bear. He has pain in the right thigh which started post fall. He has been taking well orally 50-100% of his meals. Patient has remained afebrile since admission. Objective Vital Signs & I&O Last 8 Hrs of Vitals and I&O: Laboratory Tests 11/06/17 0408: Anion Gap 7, Estimated GFR > 60, Glucose 117 H, Calcium 7.4 L, Phosphorus 2.9, Magnesium 2.3, Total Bilirubin 0.4, AST 126 H, ALT 183 H, Albumin 2.1 L, CBC w Diff MAN DIFF ORDERED, RBC 3.89 L, MCV 84.9, MCH 29.0, MCHC 34.2, RDW 16.4 H , MPV 8.3, Gran % 94.1 H, Lymphocytes % 2.6 L, Monocytes % 3.1, Eosinophils % 0.2, Basophils % 0, Absolute Granulocytes 19.9 H, Segmented Neutrophils 73, Band Neutrophils 21 H, Absolute Lymphocytes 0.5 L, Lymphocytes 2 L, Monocytes 3, Absolute Monocytes 0.6, Absolute Eosinophils 0, Absolute Basophils 0, Metamyelocytes 1, Platelet Estimate ADEQUATE, Polychromasia 1+, Poikilocytosis 1 +, Ovalocytes FEW, Ana Cells 1+, Fld Total RBCs Counted 100 11/05/17 0835: Lactic Acid 1.6 Vital Signs Date Time Temp Pulse Resp B/P B/P Pulse O2 O2 Flow FiO2 Mean Ox Delivery Rate 11/06 0800 98.0 74 28 132/80 97 Nasal 2.0L Cannula 11/06 0400 96 Nasal 2.0L Cannula 11/06 0000 75.0 75 12 142/78 95 Nasal 2.0L Cannula 11/06 0000 95 Nasal 2.0L Cannula 11/05 2000 95 Room Air 11/05 1600 96 Nasal 2.0L Cannula 11/05 1600 98.4 75 23 110/74 95 Nasal 2.0L Cannula 11/05 1200 96 Nasal 2.0L Cannula Intake & Output 11/06 1600 11/06 0800 11/06 0000 Intake Total 825 959 Output Total 800 800 Balance 25 159 Intake, IV 825 719 Intake, Oral 0 240 Number 0 0 Bowel Movements Output, Urine 800 800 Exam General Appearance: no apparent distress, alert, awake Head: atraumatic, normal appearance Ears, Nose, Throat: hearing grossly normal Neck: normal inspection, supple Respiratory: wheezing, bilateral wheezes Cardiovascular: regular rate/rhythm Gastrointestinal: normal bowel sounds, soft, non-tender Extremities: normal inspection, normal capillary refill, tenderness on the right thigh on palpation Cranial Nerves: normal hearing, normal speech Skin: intact, normal color Skin Temp/Moisture Exam: Warm/Dry Sepsis Skin Exam (color): Normal for Ethnicity Contreras Still Needed? Yes Nutrition Nutrition: P.O. diet Current Medications: Current Medications Sig/Lauren Start time Last Medication Dose Route Stop Time Status Admin Acetaminophen 650 MG Q6P PRN 11/05 1015 AC PO Acetaminophen 1,000 MG Q6P PRN 11/05 1015 AC 11/06 IV 0753 Albuterol Sulfate 3 ML Q6 PRN 11/06 0745 AC INH Baclofen 10 MG TID PRN 11/05 1015 AC 11/06 PO 0753 Ceftriaxone Sodium 1,000 MG DAILY 11/05 0900 DC 11/05 IV 0824 Dextrose/Sodium 1,000 ML Q8H 11/05 0800 DC 11/06 Chloride IV 0508 Heparin Sodium 5,000 UNIT Q8 11/04 2200 AC 11/06 (Porcine) SC 0508 Insulin Aspart 0 TIDAC 11/05 0800 AC 11/05 SC 1650 Magnesium Sulfate 1 GM ONCE ONE 11/05 0800 DC 11/05 Dextrose/Water 100 ML IV 11/05 1159 0820 Meropenem 1 GM IQ8 11/05 1000 AC 11/06 IV 0757 Oxycodone HCl 5 MG Q6P PRN 11/05 1015 AC 11/06 PO 0752 Timolol Maleate 1 GTT DAILY 11/05 0900 AC 11/06 OPH 0803 ECHO Findings: Ejection fraction 55% no wall abnormalities Impression/Plan Impression/Problem List Impression: 77-year-old male with past medical history off prostate carcinoma declared cancer free, urinary outlet obstruction on chronic indwelling Contreras catheter, multiple UTI, multiple sclerosis not on active treatment, presented with 1 day history of nonbloody diarrhea, and was found to be in severe sepsis, of urological origin, actively resuscitated with IV fluids, and IV antibiotics. Day 1 post admission the patient had an increase in WBC and bands and because of that was changed to meropenem. The patient is being managed in the ICU for the following issues: Respiratory Initially required oxygen up to 3 L. Is currently saturating at 97% on 2 L through nasal canula. Cut down the oxygen to maintain saturation just above 94% Patient has wheezes bilaterally, get the patient to an TRC nebs and albuterol when necessary He has no history of asthma Infectious diseases #Severe sepsis of urologic origin Patient started on IV ceftriaxone on admission but on the second day had an increase in bands and leukocytosis. Patient was seen by ID and antibiotics broadened to meropenem. He is growing gram-negative rods in both urine and blood, will continue to follow on sensitivity to narrow down antibiotic according to sensitivity. Lactic acidosis has been resolved, the last one being 1.6. Patient will be kept nothing by mouth from midnight today for possible suprapubic catheterization on Monday. Cardiology #Elevated troponin, secondary to Type II MO/sepsis/DEVONTE Troponin plateaued and trended down. Patient had an echo on November 05 which showed ejection fraction of 55% and no wall motion abnormality. 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 Initial creatinine 1.6 received hydration and creatinine has resolved to normal level. Alimentary Patient on consistent carbohydrate 3 diet. Eating and tolerating his meals well around 50-100%. Neurology No issues, but mild confusion noted. Per his , this is his baseline on admission. Today alert and oriented X3. Cracking jokes Other issues Diet: CC2 diet for now, NPO from [place] on Monday for Uro procedure on Monday. DVT prophylaxis: SQ Heparin Code status: Full code IV access: Peripheral Problem List: 1. Urinary tract infection 2. Elevated troponin 3. Severe sepsis with acute organ dysfunction 4. DEVONTE (acute kidney injury) Pain Ratin Pain Location: Right thigh Pain Goal: Pain 4 or less Pain Plan: Roxicodone Tylenol Tomorrow's Labs & Rationales: ICU bundle/CBC Plan DVT/Prophylaxis: mechanical, pharmacological Arley Bey MD 11/06/17 1146: Attending MD Review Statement Attending Sign Off Attending Cosign Statement: I have: examined this patient, reviewed [facility] EMR data, discussd w/resident/PA/ DISTRICT MEDICAL EXAMINER, discussed mgmt plan w/shona, discussed mgmt plan w/pt, agreed w/resident/PA/DISTRICT MEDICAL EXAMINER , amended to note. Other Findings: The patient was seen and discussed with house staff. ID and urology input appreciated. Now with MRSA and E coli (blood) and E coli in urine. Sepsis of urologic origin still the primary diagnosis. Antibiotics changed to Vanco/ Cefazolin as per ID. To have cystoscopy and suprapubic catheter placement tomorrow by Dr. Bauman. The patient himself still with some confusion (?baseline ). Agree with check stool for C diff and consider RENATE if ID feels needed.
[2017-11-06 08:00] VITALS: BP 132/80
--- NOTE | 2017-11-06 10:06 | PN- Cardiology ---
Subjective Subjective: Patient is resting comfortably with no chest pain or dyspnea. Objective Vital Signs and I&Os Vital Signs Date Time Temp Pulse Resp B/P B/P Pulse O2 O2 Flow FiO2 Mean Ox Delivery Rate 11/06 0833 Nasal 1.0L Cannula 11/06 0800 97 Nasal 2.0L Cannula 11/06 0800 98.0 74 28 132/80 97 Nasal 2.0L Cannula 11/06 0400 96 Nasal 2.0L Cannula 11/06 0000 75.0 75 12 142/78 95 Nasal 2.0L Cannula 11/06 0000 95 Nasal 2.0L Cannula 11/05 2000 95 Room Air 11/05 1600 96 Nasal 2.0L Cannula 11/05 1600 98.4 75 23 110/74 95 Nasal 2.0L Cannula 11/05 1200 96 Nasal 2.0L Cannula Intake & Output 11/06 1600 11/06 0800 11/06 0000 11/05 1600 11/05 0800 11/05 0000 Intake Total 416 568 0293 1135 3142 Output Total 800 800 484 608 3108 Balance 25 159 662 400 5489 Intake, IV 825 639 748 7708 3142 Intake, Oral 0 240 480 0 0 Number 0 0 2 1 0 Bowel Movements Output, Urine [phone] [id number] Patient 183 lb Weight Weight Bed scale Measurement Method Physical Exam: General: no apparent distress. Eyes: No obvious scleral icterus. HEENT: No jugular venous distention or abnormal jugular venous pulsations. Cardiovascular: Normal intensity S1/S2. Regular Respiratory: Mildly decreased air entry at the bases without rales Abdomen: no guarding or rebound tenderness. Musculoskeletal: No clubbing or cyanosis noted Skin: warm Neurologic: Alert Current Medications: Current Medications Sig/Lauren Start time Last Medication Dose Route Stop Time Status Admin Acetaminophen 650 MG Q6P PRN 11/05 1015 AC PO Acetaminophen 1,000 MG Q6P PRN 11/05 1015 AC 11/06 IV 0753 Albuterol Sulfate 3 ML Q6 PRN 11/06 0745 AC INH Baclofen 10 MG TID PRN 11/05 1015 AC 11/06 PO 0753 Dextrose/Sodium 1,000 ML Q8H 11/05 0800 DC 11/06 Chloride IV 0508 Heparin Sodium 5,000 UNIT Q8 11/04 2200 AC 11/06 (Porcine) SC 0508 Insulin Aspart 0 TIDAC 11/05 0800 AC 11/05 SC 1650 Magnesium Sulfate 1 GM ONCE ONE 11/05 0800 DC 11/05 Dextrose/Water 100 ML IV 11/05 1159 0820 Meropenem 1 GM IQ8 11/05 1000 AC 11/06 IV 0757 Oxycodone HCl 5 MG Q6P PRN 11/05 1015 11/06 PO 0752 Timolol Maleate 1 GTT DAILY 11/05 0900 AC 11/06 OPH 0803 Results Last 48 Hrs of Labs/Mics: Laboratory Tests 11/06/17 0408: Anion Gap 7, Estimated GFR > 60, Glucose 117 H, Calcium 7.4 L, Phosphorus 2.9, Magnesium 2.3, Total Bilirubin 0.4, AST 126 H, ALT 183 H, Albumin 2.1 L, CBC w Diff MAN DIFF ORDERED, RBC 3.89 L, MCV 84.9, MCH 29.0, MCHC 34.2, RDW 16.4 H , MPV 8.3, Gran % 94.1 H, Lymphocytes % 2.6 L, Monocytes % 3.1, Eosinophils % 0.2, Basophils % 0, Absolute Granulocytes 19.9 H, Segmented Neutrophils 73, Band Neutrophils 21 H, Absolute Lymphocytes 0.5 L, Lymphocytes 2 L, Monocytes 3, Absolute Monocytes 0.6, Absolute Eosinophils 0, Absolute Basophils 0, Metamyelocytes 1, Platelet Estimate ADEQUATE, Polychromasia 1+, Poikilocytosis 1 +, Ovalocytes FEW, Ana Cells 1+, Fld Total RBCs Counted 100 11/05/17 0835: Lactic Acid 1.6 11/05/17 0500: Hemoglobin A1c Pending 11/05/17 0500: Anion Gap 10, Estimated GFR > 60, Glucose 64 L, Calcium 7.5 L, Phosphorus 4.0, Magnesium 1.9, Total Bilirubin 0.5, AST 246 H, ALT 245 H, Albumin 2.3 L, PT 15.0 H, INR 1.37 H, APTT 34, CBC w Diff MAN DIFF ORDERED, RBC 4.41 L, MCV 86.7, MCH 28.7, MCHC 33.1, RDW 16.5 H, MPV 8.2, Gran % 93.1 H, Lymphocytes % 2.9 L, Monocytes % 4.0, Eosinophils % 0, Basophils % 0, Absolute Granulocytes 22.0 H, Segmented Neutrophils 57, Band Neutrophils 34 H, Absolute Lymphocytes 0.7 L, Lymphocytes 4 L, Monocytes 4, Absolute Monocytes 0.9 H, Absolute Eosinophils 0, Basophils 1, Absolute Basophils 0, Platelet Estimate ADEQUATE, Poikilocytosis 3+, Anisocytosis 1+, [place] Cells 3+ 11/05/17 0100: Troponin I 1.01 *H 11/04/172120: Lactic Acid Cancelled 11/04/172119: Urine Opiates Screen < 100, Methadone Screen < 40, Barbiturate Screen < 60, Ur Phencyclidine Scrn < 6.00, Amphetamines Screen < 100, U Benzodiazepines Scrn < 85, Urine Cocaine Screen < 50, Urine Cannabis Screen < 5.00 11/04/171924: Lactic Acid 3.5 H 11/04/171924: Anion Gap 9, Estimated GFR 54 L, Glucose 83, Calcium 7.3 L, Phosphorus 2.1 L, Magnesium 1.3 L, Total Bilirubin 0.3, AST 166 H, ALT 138 H, Troponin I 1.08 * H, Albumin 2.0 L, PT 14.7 H, INR 1.34 H, APTT 26 11/04/17 1706: Lactic Acid 4.6 H 11/04/17 1600: Urine Color YEL, Urine Clarity TURBD H, Urine pH 8.5 H, Ur Specific [place] 1.010, Urine Protein 100 H, Urine Ketones NEG, Urine Nitrite POS H, Urine Bilirubin NEG, Urine Urobilinogen 1.0, Ur Leukocyte Esterase LARGE H, Ur Microscopic SEDIMENT EXAMINED, Urine RBC >75 H, Urine WBC 1-3 H, Ur Epithelial Cells RARE, Urine Bacteria PACKD H, Urine Hemoglobin LARGE H, Urine Glucose NEG 11/04/17 1315: Anion Gap 13, Estimated GFR 42 L, BUN/Creatinine Ratio 18.1, Glucose 153 H, Lactic Acid 6.0 H, Calcium 8.9, Total Bilirubin 0.4, AST 114 H, ALT 84 H, Alkaline Phosphatase 76, Creatine Kinase 834 H, Troponin I 1.10 *H, Total Protein 5.4 L, Albumin 2.8 L, Globulin 2.6, Albumin/Globulin Ratio 1.1, CBC w Diff MAN DIFF ORDERED, RBC 4.91, MCV 87.1, MCH 28.5, MCHC 32.7 L, RDW 16.4 H, MPV 7.7, Gran % 97.1 H, Lymphocytes % 2.5 L, Monocytes % 0.4 L, Eosinophils % 0, Basophils % 0, Absolute Granulocytes 13.9 H, Segmented Neutrophils 82 H, Band Neutrophils 12 H, Absolute Lymphocytes 0.4 L, Lymphocytes 4 L, Monocytes 2, Absolute Monocytes 0.1, Absolute Eosinophils 0, Absolute Basophils 0, Platelet Estimate ADEQUATE, Normocytic RBCs VERIFIED, Normochromic RBCs VERIFIED Microbiology 11/05 1999 UPPER RESP: Surveillance Culture - COMP METH RESIST STAPH AUREUS 11/05 1999 GI: Surveillance Culture - COMP 11/04 1504 BLOOD: Blood Culture - COMP ESCHERICHIA COLI METH RESIST STAPH AUREUS 11/04 1315 BLOOD: Blood Culture - COMP ESCHERICHIA COLI METH RESIST STAPH AUREUS Recent Imaging Studies: Telemetry tracings are personally reviewed and shows sinus rhythm Echo Normal global left ventricular size, wall thickness, systolic function with no obvious regional wall motion abnormalities. Left ventricular ejection fraction is estimated at 55 %. Normal right ventricular size and function. No evidence of pulmonary hypertension. No pericardial effusion. Francis Moe M.D. (Electronically Signed) Final Date: 05 November 2017 19:28 Assessment/Plan Assessment/Plan 1. Sepsis of urologic origin 2. Elevated troponin likely due to sepsis/DEVONTE 3. History of multiple sclerosis 4. Diabetes mellitus 5. Acute kidney injury, improved Denies any chest pain, dyspnea, or palpitations. Remains hemodynamically stable. No evidence of arrhythmia on telemetry. Echocardiogram as above without wall motion abnormality. Cardiac status is stable; please call with any additional questions or concerns. I did recommend the patient consider outpatient stress testing after discharge and he will follow-up with me after discharge. Royce Moe MD [facility] Continue telemetry? No
--- NOTE | 2017-11-06 11:19 | PN- Infect Dx ---
Subjective Subjective: Afebrile without complaints. He has had some diarrhea reported. Objective Last 24 Hrs of Vital Signs/I&O Vital Signs Date Time Temp Pulse Resp B/P B/P Pulse O2 O2 Flow FiO2 Mean Ox Delivery Rate 11/06 0833 Nasal 1.0L Cannula 11/06 0800 97 Nasal 2.0L Cannula 11/06 08 98.0 74 28 132/80 97 Nasal 2.0L Cannula 11/06 0400 96 Nasal 2.0L Cannula 11/06 0000 75.0 75 12 142/78 95 Nasal 2.0L Cannula 11/06 0000 95 Nasal 2.0L Cannula 11/05 2000 95 Room Air 11/05 1600 96 Nasal 2.0L Cannula 11/05 1600 98.4 75 23 110/74 95 Nasal 2.0L Cannula 11/05 1200 96 Nasal 2.0L Cannula Intake & Output 11/06 1600 11/06 0800 11/06 0000 Intake Total 825 959 Output Total 800 800 Balance 25 159 Intake, IV 825 719 Intake, Oral 0 240 Number 0 0 Bowel Movements Output, Urine 800 800 Physical Exam Other Physical Findings: He appears comfortable but remains confused and disoriented Lungs decreased breath sounds at the left base Heart regular rhythm with no murmur Abdomen is soft, nontender with positive bowel sounds Back no CVA tenderness Extremities trace pedal edema both lower extremities Contreras catheter is in place Results Last 24 Hours of Lab Results: Laboratory Tests 11/06 0408 Chemistry Sodium (137 - 145 mmol/L) 144 Potassium (3.5 - 5.1 mmol/L) 4.0 Chloride (98 - 107 mmol/L) 114 H Carbon Dioxide (22 - 30 mmol/L) 23 Anion Gap (5 - 16) 7 BUN (9 - 20 mg/dL) 21 H Creatinine (0.7 - 1.2 mg/dL) 0.9 Estimated GFR (>60 ml/min) > 60 Glucose (65 - 99 mg/dL) 117 H Calcium (8.4 - 10.2 mg/dL) 7.4 L Phosphorus (2.5 - 4.5 mg/dL) 2.9 Magnesium (1.6 - 2.3 mg/dL) 2.3 Total Bilirubin (0.2 - 1.3 mg/dL) 0.4 AST (17 - 59 U/L) 126 H ALT (21 - 72 U/L) 183 H Albumin (3.5 - 5.0 g/dL) 2.1 L Hematology CBC w Diff MAN DIFF ORDERED WBC (4.8 - 10.8 /CUMM) 21.2 H RBC (4.70 - 6.10 /CUMM) 3.89 L Hgb (14.0 - 18.0 G/DL) 11.3 L Hct (42 - 52 %) 33.0 L MCV (80.0 - 94.0 FL) 84.9 MCH (27.0 - 31.0 PG) 29.0 MCHC (33.0 - 37.0 G/DL) 34.2 RDW (11.5 - 14.5 %) 16.4 H Plt Count (130 - 400 /CUMM) 105 L MPV (7.4 - 10.4 FL) 8.3 Gran % (42.2 - 75.2 %) 94.1 H Lymphocytes % (20.5 - 51.1 %) 2.6 L Monocytes % (1.7 - 9.3 %) 3.1 Eosinophils % (0 - 5 %) 0.2 Basophils % (0.0 - 2.0 %) 0 Absolute Granulocytes (1.4 - 6.5 /CUMM) 19.9 H Segmented Neutrophils (42.2 - 75.2 %) 73 Band Neutrophils (0.0 - 5.0 %) 21 H Absolute Lymphocytes (1.2 - 3.4 /CUMM) 0.5 L Lymphocytes (20.5 - 51.1 %) 2 L Monocytes (1.7 - 9.3 %) 3 Absolute Monocytes (0.10 - 0.60 /CUMM) 0.6 Absolute Eosinophils (0.0 - 0.7 /CUMM) 0 Absolute Basophils (0.0 - 0.2 /CUMM) 0 Metamyelocytes (0.0 - 1.0 %) 1 Platelet Estimate (ADEQUATE) ADEQUATE Polychromasia 1+ Poikilocytosis 1+ Ovalocytes FEW Ana Cells 1+ Other Body Source Fld Total RBCs Counted (%) 100 Last 24 Hours of [place] Results: Blood cultures 2 November 04 positive for E. coli resistant to Ciprofloxacin and MRSA Urine culture November 04 greater than 100,000 colonies of E. coli resistant to Ciprofloxacin Recent Imaging Studies: Echocardiogram November 05 no vegetations reported Assessment/Plan ID Impression: Polymicrobial sepsis, presumably of urologic origin, with E. coli and MRSA both isolated from his blood cultures and with his urine culture also positive for E. coli, though with no MRSA isolated. His CT scan did reveal bilateral hydroureteronephrosis as well as a markedly distended bladder (despite the Contreras catheter) and he is scheduled for a cystoscopy and suprapubic cystostomy in the a.m. He remains afebrile but with a persistent leukocytosis, with bandemia and Dohle bodies, and, given his culture results, his antibiotics will need to be adjusted. With the isolation of Staph aureus (MRSA) he will require a minimum of 2 weeks of IV antibiotics and consideration of a RENATE to rule out endocarditis. He has had some diarrhea and, given his history of antibiotic prophylaxis with each Contreras catheter change, C. difficile should be ruled out. Suggestion: 1. Repeat blood cultures 2 2. Stool for C. difficile 3. Await cystoscopy and placement of suprapubic cystostomy in the a.m. 4. Will need to consider possible RENATE 5. Discontinue Meropenem 6. Begin Vancomycin 1500 mg IV every 24 hours and Cefazolin 2 g IV every 8 hours
--- NOTE | 2017-11-06 12:12 | Transfer of Care Summary ---
Hospital Course Course Hospital Course: This is a 77 years old gentleman with the past medical history of CA prostate declared cancer free, urinary outlet obstruction on chronic indwelling Contreras catheter, multiple sclerosis not on active treatment who presented with one-day history of diarrhea that is nonbloody large amount not associated with abdominal pain, has history of multiple antibiotic use. Patient has been on metformin for type 2 diabetes and recently has not been drinking well and is losing a lot of fluid through diarrhea presenting with an acute kidney injury picture with creatinine of 1.6 from baseline of around 0.9. He had significant lactic acidosis of 6.0 on arrival. Patient blood pressure on arrival was in the lower side 85/56 but per family blood pressure is usually on the lower side around 100 /60 at baseline. Patient has significantly positive UA with leukocyte estrase and positive nitrites although very few WBC 1-3. Examination of the prostate did not elicit any tenderness and there was soft brown non-bloodstained fecal matters around the anal orifice. The patient was admitted to intensive care unit and we managed him for the following conditions Sepsis of urologic origin Patient had severe sepsis on presentation with low blood pressure on admission requiring 4 L initially of bolus. He never required pressors but because of unstable hemodynamic status was admitted to intensive care unit. He received intravenous Ceftazidine and Vancomycin in the ER and we changed it to ceftriaxone starting from the next day post admission. Sepsis markers from CBC on the day after admission showed a worsening trend with increasing WBC and bands. He was seen by infectious disease Mathew MD Christina who changed the antibiotic to meropenem. Blood culture grew gram-negative rods both in blood and urine and upon sensitivity the gram-negative rods were pansensitive to most antibiotics except ciprofloxacin. Also in the blood culture the patient grew staph aureus in one of the bottles and was confirmed to be MRSA. We narrowed the spectrum for gram-negative coverage to cefazolin and restarted vancomycin to cover for MRSA identification in the blood. Patient continued to remain afebrile and had an echocardiogram transthoracic which showed normal valves, no wall hypokinesia and ejection fraction of 55%. There was no evidence of endocarditis from the transthoracic echocardiogram given the increased risk of possibility of valve seeding with MRSA the patient was scheduled for a RENATE, follow-up results. Blood culture was also repeated, continue to follow culture final results. Acute kidney injury Patient has baseline creatinine of 0.9 but on presentation had increased creatinine of 1.6 and high BUN. He was found to be dry and reported multiple diarrhea motions with reduced oral intake. He was resuscitated aggressively with 4 L of bolus normal saline and kept on normal saline 100 mL/h. Patient renal function improved gradually by day 2 had creatinine within baseline values. Elevated troponin without symptoms On admission the patient had slight elevated troponin 1.10. He had no EKG changes and denied any chest pain or shortness of breath. We thought this could be type II demand ischemia. We trended the troponin and there was no subsequent increase. Patient had an echocardiogram which showed ejection fraction of 55% without wall hypokinesia. During the course of the stay in the ICU was seen by carbon electrodes supervisor Dr. Moe and he recommended the patient to follow with him and have an outpatient stress test. Diabetes mellitus Patient has history of type 2 diabetes mellitus and is on metformin 1000 mg twice a day at home. We held metformin given presentation with DEVONTE on admission. He was kept on insulin sliding scale and sugars were within controlled values. We checked his HbA1c and was 6.5 during the course of the stay meaning that sugar is well controlled. Please resume home oral antidiabetic medication when the patient is discharged. Multiple sclerosis Patient has 40 years history of multiple sclerosis. He is not on active treatment or follows up with any specialist for that. The volunteers that the patient at baseline has memory loss which has been ongoing and they're attributing it to the multiple sclerosis. Patient will need referral to follow up with Dr. Jacinto for his MS Urinary obstruction Patient has history of urinary obstruction status post prostate cancer treatment in 2002 and declared to be cancer free. Has been having an indwelling catheter for the last 8 months and is reported to has had multiple episodes of urinary tract infections. On presentation was found to have urinary retention when his Contreras was irrigated. On November 07 his urethra catheter was changed to suprapubic catheter. Patient should continue to follow with Dr. Bauman for management of his urinary issues. We held his BPH medications due to low blood pressure on presentation. With normal hemodynamics. Review and consider restarting his medications. Complications: None Significant Procedures: Echocardiogram: Normal global left ventricular size, wall thickness, systolic function with no obvious regional wall motion abnormalities. Left ventricular ejection fraction is estimated at 55 %. Pertinent Lab Results: Laboratory Tests 11/06 11/05 11/05 0408 0835 0500 Chemistry Sodium (137 - 145 mmol/L) 144 Potassium (3.5 - 5.1 mmol/L) 4.0 Chloride (98 - 107 mmol/L) 114 H Carbon Dioxide (22 - 30 mmol/L) 23 Anion Gap (5 - 16) 7 BUN (9 - 20 mg/dL) 21 H Creatinine (0.7 - 1.2 mg/dL) 0.9 Estimated GFR (>60 ml/min) > 60 Glucose (65 - 99 mg/dL) 117 H Hemoglobin A1c (4.2 - 5.8 %) 6.5 H Lactic Acid (0.7 - 2.1 mmol/L) 1.6 Calcium (8.4 - 10.2 mg/dL) 7.4 L Phosphorus (2.5 - 4.5 mg/dL) 2.9 Magnesium (1.6 - 2.3 mg/dL) 2.3 Total Bilirubin (0.2 - 1.3 mg/dL) 0.4 AST (17 - 59 U/L) 126 H ALT (21 - 72 U/L) 183 H Albumin (3.5 - 5.0 g/dL) 2.1 L Hematology CBC w Diff MAN DIFF ORDERED WBC (4.8 - 10.8 /CUMM) 21.2 H RBC (4.70 - 6.10 /CUMM) 3.89 L Hgb (14.0 - 18.0 G/DL) 11.3 L Hct (42 - 52 %) 33.0 L MCV (80.0 - 94.0 FL) 84.9 MCH (27.0 - 31.0 PG) 29.0 MCHC (33.0 - 37.0 G/DL) 34.2 RDW (11.5 - 14.5 %) 16.4 H Plt Count (130 - 400 /CUMM) 105 L MPV (7.4 - 10.4 FL) 8.3 Gran % (42.2 - 75.2 %) 94.1 H Lymphocytes % (20.5 - 51.1 %) 2.6 L Monocytes % (1.7 - 9.3 %) 3.1 Eosinophils % (0 - 5 %) 0.2 Basophils % (0.0 - 2.0 %) 0 Absolute Granulocytes (1.4 - 6.5 /CUMM) 19.9 H Segmented Neutrophils (42.2 - 75.2 %) 73 Band Neutrophils (0.0 - 5.0 %) 21 H Absolute Lymphocytes (1.2 - 3.4 /CUMM) 0.5 L Lymphocytes (20.5 - 51.1 %) 2 L Monocytes (1.7 - 9.3 %) 3 Absolute Monocytes (0.10 - 0.60 /CUMM) 0.6 Absolute Eosinophils (0.0 - 0.7 /CUMM) 0 Absolute Basophils (0.0 - 0.2 /CUMM) 0 Metamyelocytes (0.0 - 1.0 %) 1 Platelet Estimate (ADEQUATE) ADEQUATE Polychromasia 1+ Poikilocytosis 1+ Ovalocytes FEW Ana Cells 1+ Other Body Source Fld Total RBCs Counted (%) 100 11/05 11/05 11/04 0500 0100 2121 Chemistry Sodium (137 - 145 mmol/L) 144 Potassium (3.5 - 5.1 mmol/L) 4.2 Chloride (98 - 107 mmol/L) 112 H Carbon Dioxide (22 - 30 mmol/L) 22 Anion Gap (5 - 16) 10 BUN (9 - 20 mg/dL) 27 H Creatinine (0.7 - 1.2 mg/dL) 1.1 Estimated GFR (>60 ml/min) > 60 Glucose (65 - 99 mg/dL) 64 L Lactic Acid Cancelled Calcium (8.4 - 10.2 mg/dL) 7.5 L Phosphorus (2.5 - 4.5 mg/dL) 4.0 Magnesium (1.6 - 2.3 mg/dL) 1.9 Total Bilirubin (0.2 - 1.3 mg/dL) 0.5 AST (17 - 59 U/L) 246 H ALT (21 - 72 U/L) 245 H Troponin I (<0.11 ng/ml) 1.01 *H Albumin (3.5 - 5.0 g/dL) 2.3 L Coagulation PT (9.4 - 12.5 SEC) 15.0 H INR (0.90 - 1.17) 1.37 H APTT (25 - 37 SEC) 34 Hematology CBC w Diff MAN DIFF ORDERED WBC (4.8 - 10.8 /CUMM) 23.6 H RBC (4.70 - 6.10 /CUMM) 4.41 L Hgb (14.0 - 18.0 G/DL) 12.7 L Hct (42 - 52 %) 38.3 L MCV (80.0 - 94.0 FL) 86.7 MCH (27.0 - 31.0 PG) 28.7 MCHC (33.0 - 37.0 G/DL) 33.1 RDW (11.5 - 14.5 %) 16.5 H Plt Count (130 - 400 /CUMM) 147 MPV (7.4 - 10.4 FL) 8.2 Gran % (42.2 - 75.2 %) 93.1 H Lymphocytes % (20.5 - 51.1 %) 2.9 L Monocytes % (1.7 - 9.3 %) 4.0 Eosinophils % (0 - 5 %) 0 Basophils % (0.0 - 2.0 %) 0 Absolute Granulocytes (1.4 - 6.5 /CUMM) 22.0 H Segmented Neutrophils (42.2 - 75.2 %) 57 Band Neutrophils (0.0 - 5.0 %) 34 H Absolute Lymphocytes (1.2 - 3.4 /CUMM) 0.7 L Lymphocytes (20.5 - 51.1 %) 4 L Monocytes (1.7 - 9.3 %) 4 Absolute Monocytes (0.10 - 0.60 /CUMM) 0.9 H Absolute Eosinophils (0.0 - 0.7 /CUMM) 0 Basophils (0.0 - 2.0 %) 1 Absolute Basophils (0.0 - 0.2 /CUMM) 0 Platelet Estimate (ADEQUATE) ADEQUATE Poikilocytosis 3+ Anisocytosis 1+ Ana Cells 3+ 11/040 1925 1925 1706 Chemistry Sodium (137 - 145 mmol/L) 143 Potassium (3.5 - 5.1 mmol/L) 4.1 Chloride (98 - 107 mmol/L) 114 H Carbon Dioxide (22 - 30 mmol/L) 21 L Anion Gap (5 - 16) 9 BUN (9 - 20 mg/dL) 28 H Creatinine (0.7 - 1.2 mg/dL) 1.3 H Estimated GFR (>60 ml/min) 54 L Glucose (65 - 99 mg/dL) 83 Lactic Acid (0.7 - 2.1 mmol/L) 3.5 H 4.6 H Calcium (8.4 - 10.2 mg/dL) 7.3 L Phosphorus (2.5 - 4.5 mg/dL) 2.1 L Magnesium (1.6 - 2.3 mg/dL) 1.3 L Total Bilirubin (0.2 - 1.3 mg/dL) 0.3 AST (17 - 59 U/L) 166 H ALT (21 - 72 U/L) 138 H Troponin I (<0.11 ng/ml) 1.08 *H Albumin (3.5 - 5.0 g/dL) 2.0 L Coagulation PT (9.4 - 12.5 SEC) 14.7 H INR (0.90 - 1.17) 1.34 H APTT (25 - 37 SEC) 26 Toxicology Urine Opiates Screen (>2000 NG/ML) < 100 Methadone Screen (>300 NG/ML) < 40 Barbiturate Screen (>200 NG/ML) < 60 Ur Phencyclidine Scrn (>25 NG/ML) < 6.00 Amphetamines Screen (>1000 NG/ML) < 100 U Benzodiazepines Scrn (>200 NG/ML) < 85 Urine Cocaine Screen (>300 NG/ML) < 50 Urine Cannabis Screen (>50 NG/ML) < 5.00 16 11/04 1600 1315 Chemistry Sodium (137 - 145 mmol/L) 142 Potassium (3.5 - 5.1 mmol/L) 4.5 Chloride (98 - 107 mmol/L) 108 H Carbon Dioxide (22 - 30 mmol/L) 21 L Anion Gap (5 - 16) 13 BUN (9 - 20 mg/dL) 29 H Creatinine (0.7 - 1.2 mg/dL) 1.6 H Estimated GFR (>60 ml/min) 42 L BUN/Creatinine Ratio (7 - 25 %) 18.1 Glucose (65 - 99 mg/dL) 153 H Lactic Acid (0.7 - 2.1 mmol/L) 6.0 H Calcium (8.4 - 10.2 mg/dL) 8.9 Total Bilirubin (0.2 - 1.3 mg/dL) 0.4 AST (17 - 59 U/L) 114 H ALT (21 - 72 U/L) 84 H Alkaline Phosphatase (< 127 U/L) 76 Creatine Kinase (55 - 170 U/L) 834 H Troponin I (<0.11 ng/ml) 1.10 *H Total Protein (6.3 - 8.2 g/dL) 5.4 L Albumin (3.5 - 5.0 g/dL) 2.8 L Globulin (1.9 - 4.2 gm/dL) 2.6 Albumin/Globulin Ratio (1.1 - 2.2 %) 1.1 Hematology CBC w Diff MAN DIFF ORDERED WBC (4.8 - 10.8 /CUMM) 14.3 H RBC (4.70 - 6.10 /CUMM) 4.91 Hgb (14.0 - 18.0 G/DL) 14.0 Hct (42 - 52 %) 42.8 MCV (80.0 - 94.0 FL) 87.1 MCH (27.0 - 31.0 PG) 28.5 MCHC (33.0 - 37.0 G/DL) 32.7 L RDW (11.5 - 14.5 %) 16.4 H Plt Count (130 - 400 /CUMM) 226 MPV (7.4 - 10.4 FL) 7.7 Gran % (42.2 - 75.2 %) 97.1 H Lymphocytes % (20.5 - 51.1 %) 2.5 L Monocytes % (1.7 - 9.3 %) 0.4 L Eosinophils % (0 - 5 %) 0 Basophils % (0.0 - 2.0 %) 0 Absolute Granulocytes (1.4 - 6.5 /CUMM) 13.9 H Segmented Neutrophils (42.2 - 75.2 %) 82 H Band Neutrophils (0.0 - 5.0 %) 12 H Absolute Lymphocytes (1.2 - 3.4 /CUMM) 0.4 L Lymphocytes (20.5 - 51.1 %) 4 L Monocytes (1.7 - 9.3 %) 2 Absolute Monocytes (0.10 - 0.60 /CUMM) 0.1 Absolute Eosinophils (0.0 - 0.7 /CUMM) 0 Absolute Basophils (0.0 - 0.2 /CUMM) 0 Platelet Estimate (ADEQUATE) ADEQUATE Normocytic RBCs VERIFIED Normochromic RBCs VERIFIED Urines Urine Color (YEL,AMB,STR) YEL Urine Clarity (CLEAR) TURBD H Urine pH (5.0 - 8.0) 8.5 H Ur Specific [place] (1.001 - 1.035) 1.010 Urine Protein (NEG,<30 MG/DL) 100 H Urine Ketones (NEG) NEG Urine Nitrite (NEG) POS H Urine Bilirubin (NEG) NEG Urine Urobilinogen (0.1 - 1.0 EU/dl) 1.0 Ur Leukocyte Esterase (NEG) LARGE H Ur Microscopic SEDIMENT EXAMINED Urine RBC (0 - 5 /HPF) >75 H Urine WBC (0 - 2 /HPF) 1-3 H Ur Epithelial Cells (NONE,FEW) RARE Urine Bacteria (NEG/NONE) PACKD H Urine Hemoglobin (NEG) LARGE H Urine Glucose (N MG/DL) NEG Assessment/Plan: Review hospital course above
--- NOTE | 2017-11-06 12:35 | RADIOLOGY REPORT ---
EXAMINATION: XR HIP, RIGHT CLINICAL INFORMATION: Painful right hip, more on the central part. Presumptive diagnosis of injury of the right femur. History of fall at home. Rule out fracture. COMPARISON: CT scan of the abdomen and pelvis dated 11/04/2017. TECHNIQUE: AP portable of the right hip. FINDINGS: No acute fracture or dislocation. Mild degenerative change in the superior joint space with joint space narrowing, spurring and cystic changes seen. Right sacroiliac joint and pubic symphysis intact. Multiple prostate seed implants are seen in place. Several alan are seen in the left groin. Sacrum is poorly assessed due to suboptimal exposure settings. IMPRESSION: No evidence of acute fracture on single view of the right hip. Recent CT scan from 11/04/2017 had shown no acute fracture involving the right hip.
[2017-11-06 15:45] VITALS: BP 140/70
[2017-11-07] VITALS: BP 128/86
[2017-11-07 04:22] LABS: ABSOLUTE BASOPHIL COUNT 0 /CUMM (0.0-0.2); ABSOLUTE EOSINOPHIL COUNT 0.1 /CUMM (0.0-0.7); ABSOLUTE GRANULOCYTE CT 16.7 /CUMM (1.4-6.5); ABSOLUTE LYMPH COUNT 0.5 /CUMM (1.2-3.4); ABSOLUTE MONOCYTE COUNT 0.5 /CUMM (0.10-0.60); BASOPHIL % 0 % (0.0-2.0); EOSINOPHIL % 0.6 % (0-5); GRANULOCYTE % 93.7 % (42.2-75.2); HEMATOCRIT 36.2 % (42-52); MEAN CORPUSCULAR HGB 28.8 PG (27.0-31.0); MEAN CORPUSCULAR HGB CONC 33.2 G/DL (33.0-37.0); MEAN CORPUSCULAR VOLUME 86.7 FL (80.0-94.0); MEAN PLATELET VOLUME 8.1 FL (7.4-10.4); PLATELET COUNT 98 /CUMM (130-400); RED BLOOD CELL CT 4.17 /CUMM (4.70-6.10); WHITE BLOOD CELL COUNT 17.8 /CUMM (4.8-10.8)
[2017-11-07 04:30] LABS: PT 11.2 SEC (9.4-12.5); PTT 30 SEC (25-37)
--- NOTE | 2017-11-07 06:58 | PN- Resident CRCU ---
Rikki Haq 11/07/17 0658: Subjective HPI/CRCU Issues: Severe sepsis with shock [stable hemodynamics] Acute kidney injury [resolved] Lactic acidosis [resolved] Bacteremia with gram-negative rods and MRSA on antibiotics 24 Hour Events: Reviewed the patient lying comfortable on the bed not in acute distress he reports to have slept very well. Patient has remained afebrile with had his sensitivity and has narrowed down his antibiotics. Repeated blood culture yesterday still negative. Giardia was stopped with no bowel motions overnight. Objective Vital Signs & I&O Last 8 Hrs of Vitals and I&O: Vital Signs Date Time Temp Pulse Resp B/P B/P Pulse O2 O2 Flow FiO2 Mean Ox Delivery Rate 11/07 0400 96 Nasal 2.0L Cannula 11/07 0000 98.1 74 14 128/86 94 Nasal 2.0L Cannula 11/07 0000 94 Nasal 2.0L Cannula 11/06 2000 94 Room Air 11/06 1600 95 Nasal 2.0L Cannula 11/06 1545 97.7 66 20 140/70 95 Nasal 2.0L Cannula 11/06 1200 96 Nasal 2.0L Cannula 11/06 0833 Nasal 1.0L Cannula Exam General Appearance: no apparent distress, alert, awake, comfortable Head: atraumatic Ears, Nose, Throat: normal pharynx Neck: normal inspection, supple Respiratory: chest non-tender, no respiratory distress, expiratory wheezes Cardiovascular: regular rate/rhythm Gastrointestinal: normal bowel sounds, soft, non-tender Extremities: normal inspection, normal capillary refill Cranial Nerves: normal hearing, normal speech Skin: intact, normal color Skin Temp/Moisture Exam: Warm/Dry Nutrition Nutrition: NPO, pending suprapubic catheter placement Current Medications: Current Medications Sig/Lauren Start time Last Medication Dose Route Stop Time Status Admin Acetaminophen 650 MG Q6P PRN 11/05 1015 AC PO Acetaminophen 1,000 MG Q6P PRN 11/05 1015 DC 11/06 IV 0753 Albuterol Sulfate 3 ML Q6 PRN 11/06 0745 AC INH Baclofen 10 MG TID PRN 11/05 1015 AC 11/06 PO 1303 Cefazolin Sodium 2 GM IQ8 11/06 1200 AC 11/07 N/A 1 UNIT IV 0042 Heparin Sodium 5,000 UNIT Q8 11/04 2200 AC 11/07 (Porcine) SC 0536 Ibuprofen 600 MG Q6P PRN 11/06 1200 AC 11/06 PO 1303 Insulin Aspart 0 TIDAC 11/05 0800 DC 11/05 SC 1650 Insulin Human Regular 0 Q6 11/07 0600 AC 11/07 SC 0556 Meropenem 1 GM IQ8 11/05 1000 DC 11/06 IV 0757 Oxycodone HCl 5 MG Q6P PRN 11/05 1015 AC 11/06 PO 1303 Phosphate 250 MG ONCE ONE 11/07 0715 DC PO 11/07 0716 Timolol Maleate 1 GTT DAILY 11/05 0900 AC 11/06 OPH 0803 Vancomycin HCl 1,500 MG DAILY 11/06 1200 CAN IV Vancomycin HCl 1,500 MG Q24H 11/06 1200 AC 11/06 Sodium Chloride 250 ML IV 1302 Impression/Plan Impression/Problem List Impression: 77-year-old male with past medical history off prostate carcinoma declared cancer free, urinary outlet obstruction on chronic indwelling Contreras catheter, multiple UTI, multiple sclerosis not on active treatment, presented with 1 day history of nonbloody diarrhea, and was found to be in severe sepsis, of urological origin, actively resuscitated with IV fluids, and IV antibiotics. Day 1 post admission the patient had an increase in WBC and bands and because of that was changed to meropenem. The patient is being managed in the ICU for the following issues: Respiratory Initially required oxygen up to 3 L. Is currently saturating at 97% on 2 L through nasal canula. Cut down the oxygen to maintain saturation just above 94% Patient has wheezes bilaterally, more prominent on expiration get the patient to an TRC nebs and albuterol when necessary. He has no history of asthma. He has an incentive spirometry machine by the bedside but reports that he is not using it. Infectious diseases #Severe sepsis of urologic origin Patient started on IV ceftriaxone on admission but on the second day had an increase in bands and leukocytosis. Patient was seen by ID and antibiotics broadened to meropenem. He is growing gram-negative rods in both urine and blood, sensitivity showed that the bag is pansensitive resistant to ciprofloxacin. Patient also grew MRSA in blood in one bottle. Patient antibiotic narrowed to Cefazolin and vancomycin for MRSA. We repeated blood culture yesterday continue to follow culture results. Patient will be kept nothing by mouth from midnight study for suprapubic catheterization today. Cardiology #Elevated troponin, secondary to Type II NC/sepsis/DEVONTE Troponin plateaued and trended down. Patient had an echo on November 05 which showed ejection fraction of 55% and no wall motion abnormality. Patient has been cleared by tool die maker and will be a candidate for outpatient stress test. Will be given referral to go to Francis Moe MD for the stress test. Musculoskeletal Patient with right thigh pain status post fall at home X-ray of the thigh did not show any fractures. Patient reports to be weak and we have ordered physical therapy for assessment and discharge recommendations. 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 Trending down currently WBC of 17,800 with 10 bands #Low platelet, likely due to sepsis vs dilutional drop from 226/147/105/98 continue to monitor platelets Metabolic Patient had elevated creatinine most likely from acute kidney injury as a result of volume depletion. Initial creatinine 1.6 received hydration and creatinine has resolved to normal level. The lactic acidosis has resolved as well. Alimentary Patient on consistent carbohydrate 3 diet. Eating and tolerating his meals well around 50-100%. Neurology No issues, but mild confusion noted. Per his , this is his baseline on admission. Today alert and oriented X3. Other issues Diet: CC2 diet for now, DVT prophylaxis: SQ Heparin Code status: Full code IV access: Peripheral Problem List: 1. DEVONTE (acute kidney injury) 2. Myocardial infarction type 2 3. Severe sepsis with acute organ dysfunction 4. Diarrhea 5. Elevated troponin Pain Ratin Pain Location: Right lower limb Pain Goal: Pain 4 or less Pain Plan: Continue with Roxicodone ibuprofen and acetaminophen, baclofen for muscle spasms Tomorrow's Labs & Rationales: CBC and ICU Plan DVT/Prophylaxis: mechanical, pharmacological Arley Bey MD 11/07/17 1527: Attending MD Review Statement Attending Sign Off Attending Cosign Statement: I have: examined this patient, reviewed [facility] EMR data, discussd w/resident/PA/ PHARMACY AIDE, discussed mgmt plan w/shona, discussed mgmt plan w/pt, agreed w/resident/PA/PHARMACY AIDE , amended to note. Other Findings: The patient was seen and discussed with house staff. To have cystoscopy and suprapubic catheter placement today. Medically stable for OR. Continue Vanco/ Cefazolin as per ID.
[2017-11-07 08:00] VITALS: BP 140/76
--- NOTE | 2017-11-07 11:40 | PN- Infect Dx ---
Subjective Subjective: Afebrile. He complains of abdominal discomfort. Objective Last 24 Hrs of Vital Signs/I&O Vital Signs Date Time Temp Pulse Resp B/P B/P Pulse O2 O2 Flow FiO2 Mean Ox Delivery Rate 11/07 08 99.5 75 18 140/76 96 Nasal 2.0L Cannula 11/07 0800 96 Nasal 2.0L Cannula 11/07 0400 96 Nasal 2.0L Cannula 11/07 0000 98.1 74 14 128/86 94 Nasal 2.0L Cannula 11/07 0000 94 Nasal 2.0L Cannula 11/06 2000 94 Room Air 11/06 1600 95 Nasal 2.0L Cannula 11/06 1545 97.7 66 20 140/70 95 Nasal 2.0L Cannula 11/06 1200 96 Nasal 2.0L Cannula Intake & Output 11/07 1600 11/07 0800 11/07 0000 Intake Total 70 360 Output Total 900 500 Balance -830 -140 Intake, IV 70 Intake, Oral 360 Output, Urine 900 500 Physical Exam Other Physical Findings: He appears comfortable in no acute distress Lungs are clear Heart regular rhythm without murmur Abdomen is mildly distended, nontender with positive bowel sounds Extremities no cyanosis, clubbing or edema Neuro mild weakness of both lower extremities Contreras catheter remains in place Results Last 24 Hours of Lab Results: Laboratory Tests 11/07 0400 Chemistry Sodium (137 - 145 mmol/L) 143 Potassium (3.5 - 5.1 mmol/L) 4.4 Chloride (98 - 107 mmol/L) 113 H Carbon Dioxide (22 - 30 mmol/L) 25 Anion Gap (5 - 16) 5 BUN (9 - 20 mg/dL) 17 Creatinine (0.7 - 1.2 mg/dL) 0.7 Estimated GFR (>60 ml/min) > 60 Glucose (65 - 99 mg/dL) 106 H Calcium (8.4 - 10.2 mg/dL) 7.9 L Phosphorus (2.5 - 4.5 mg/dL) 2.2 L Magnesium (1.6 - 2.3 mg/dL) 2.2 Total Bilirubin (0.2 - 1.3 mg/dL) 0.4 AST (17 - 59 U/L) 74 H ALT (21 - 72 U/L) 137 H Albumin (3.5 - 5.0 g/dL) 2.2 L Coagulation PT (9.4 - 12.5 SEC) 11.2 INR (0.90 - 1.17) 1.03 APTT (25 - 37 SEC) 30 Hematology CBC w Diff MAN DIFF ORDERED WBC (4.8 - 10.8 /CUMM) 17.8 H RBC (4.70 - 6.10 /CUMM) 4.17 L Hgb (14.0 - 18.0 G/DL) 12.0 L Hct (42 - 52 %) 36.2 L MCV (80.0 - 94.0 FL) 86.7 MCH (27.0 - 31.0 PG) 28.8 MCHC (33.0 - 37.0 G/DL) 33.2 RDW (11.5 - 14.5 %) 17.0 H Plt Count (130 - 400 /CUMM) 98 L MPV (7.4 - 10.4 FL) 8.1 Gran % (42.2 - 75.2 %) 93.7 H Lymphocytes % (20.5 - 51.1 %) 2.9 L Monocytes % (1.7 - 9.3 %) 2.8 Eosinophils % (0 - 5 %) 0.6 Basophils % (0.0 - 2.0 %) 0 Absolute Granulocytes (1.4 - 6.5 /CUMM) 16.7 H Segmented Neutrophils (42.2 - 75.2 %) 86 H Band Neutrophils (0.0 - 5.0 %) 10 H Absolute Lymphocytes (1.2 - 3.4 /CUMM) 0.5 L Lymphocytes (20.5 - 51.1 %) 2 L Monocytes (1.7 - 9.3 %) 1 L Absolute Monocytes (0.10 - 0.60 /CUMM) 0.5 Absolute Eosinophils (0.0 - 0.7 /CUMM) 0.1 Absolute Basophils (0.0 - 0.2 /CUMM) 0 Metamyelocytes (0.0 - 1.0 %) 1 Platelet Estimate (ADEQUATE) DECREASED Normocytic RBCs VERIFIED Normochromic RBCs VERIFIED Last 24 Hours of Ilan Results: Blood cultures 2 November 06 negative Recent Imaging Studies: X-ray of the right hip November 06 no evidence of any fracture Assessment/Plan ID Impression: Stable, with temperatures remaining normal and white blood cell count decreasing , with decreasing bands, now on Vancomycin Day 2 and Cefazolin Day 3 for a polymicrobial sepsis, presumably of urologic origin, with E. coli and MRSA isolated from his blood cultures and with his urine culture also positive for E. coli. His CT scan did reveal bilateral hydroureteronephrosis as well as a markedly distended bladder (despite the Contreras catheter) and he is scheduled for a cystoscopy and suprapubic cystostomy today. With the isolation of Staph aureus (MRSA) he will require a minimum of 2 weeks of IV antibiotics and consideration of a RENATE to rule out endocarditis. Suggestion: 1. Await cystoscopy and placement of a suprapubic cystostomy later today 2. Consider RENATE to help determine the optimal duration of therapy 3. Continue Vancomycin and Cefazolin
[2017-11-07 16:00] VITALS: BP 130/80
[2017-11-08 06:20] VITALS: BP 144/60
--- NOTE | 2017-11-08 08:01 | PN- Housestaff ---
Vikki GRAHAM,[place] 11/08/17 0801: Subjective Follow-up For: Sepsis of urological origin Acute kidney injury [resolved] Lactic acidosis [resolved] Bacteremia with gram-negative rods and MRSA on antibiotics Subjective: Patient resting comfortable in bed, no active complaints except for slight tenderness to paapation on the cystostomy site. Review of Systems Constitutional: Reports: no symptoms. EENTM: Reports: no symptoms. Cardiovascular: Reports: no symptoms. Respiratory: Reports: no symptoms. Gastrointestinal: Reports: no symptoms. Genitourinary: Reports: no symptoms. Musculoskeletal: Reports: back pain. Skin: Reports: no symptoms. Neurological/Psychological: Reports: no symptoms. Hematologic/Endocrine: Reports: no symptoms. Immunologic/Allergic: Reports: no symptoms. Objective Last 24 Hrs of Vital Signs/I&O Vital Signs Date Time Temp Pulse Resp B/P B/P Pulse O2 O2 Flow FiO2 Mean Ox Delivery Rate 11/09 619 98.5 67 20 144/60 92 Room Air 11/07 2000 92 Room Air Room Air 11/07 1600 98.7 63 16 130/80 93 Room Air Intake & Output 11/08 1600 11/08 0800 11/08 0000 Intake Total 75 520 Output Total 1000 700 Balance -925 -180 Intake, IV 75 100 Intake, Oral 0 420 Number 0 Bowel Movements Output, Urine 1000 700 Patient 183 lb Weight Physical Exam General Appearance: Alert, Oriented X3, Cooperative, No Acute Distress Skin: No Rashes, No Breakdown Cardiovascular: Regular Rate, Normal S1, Normal S2 Lungs: Clear to Auscultation, Normal Air Movement Abdomen: Normal Bowel Sounds, Soft, mild suprepubic tenderness Extremities: No Clubbing, No Cyanosis, trace pedal edema Current Medications: Current Medications Sig/Lauren Start time Last Medication Dose Route Stop Time Status Admin Acetaminophen 650 MG Q6P PRN 11/05 1015 AC PO Albuterol Sulfate 3 ML Q6 PRN 11/06 0745 AC INH Baclofen 10 MG TID PRN 11/05 1015 AC 11/06 PO 1303 Cefazolin Sodium 2 GM IQ8 11/06 1200 AC 11/08 N/A 1 UNIT IV 0813 Dextrose/Sodium 1,000 ML ONCE ONE 11/08 0600 AC 11/08 Chloride IV 11/08 1919 0515 Fentanyl Citrate 100 MCG .STK-MED ONE 11/07 1418 DC IM 11/07 1419 Heparin Sodium 5,000 UNIT Q8 11/04 2200 AC 11/07 (Porcine) SC 0536 Ibuprofen 600 MG Q6P PRN 11/06 1200 AC 11/07 PO 1151 Insulin Aspart 0 TIDAC 11/07 1700 DC SC Insulin Human Regular 0 Q6 11/08 0600 AC 11/08 SC 0620 Insulin Human Regular 0 Q6 11/07 0600 DC 11/07 SC 1151 Lidocaine 0 .STK-MED ONE 11/08 0947 DC TOP Midazolam HCl 2 MG .STK-MED ONE 11/07 1418 DC IM 11/07 1419 Oxycodone HCl 5 MG Q6P PRN 11/05 1015 AC 11/07 PO 2217 Timolol Maleate 1 GTT DAILY 11/05 0900 AC 11/08 OPH 0813 Vancomycin HCl 1,500 MG Q24H 11/06 1200 AC 11/07 Sodium Chloride 250 ML IV 1150 Last 24 Hrs of Lab/Ilan Results Last 24 Hrs of Labs/Mics: Laboratory Tests 11/08/17 0730: Anion Gap 5, Estimated GFR > 60, BUN/Creatinine Ratio 22.9, CBC w Diff MAN DIFF ORDERED, RBC 4.06 L, MCV 85.6, MCH 28.5, MCHC 33.3, RDW 16.8 H, MPV 8.1, Gran % 89.0 H, Lymphocytes % 6.9 L, Monocytes % 2.8, Eosinophils % 1.2, Basophils % 0.1, Absolute Granulocytes 10.2 H, Segmented Neutrophils 80 H, Band Neutrophils 8 H, Absolute Lymphocytes 0.8 L, Lymphocytes 5 L, Monocytes 6, Absolute Monocytes 0.3, Eosinophils 1, Absolute Eosinophils 0.1, Absolute Basophils 0, Platelet Estimate DECREASED, Polychromasia 1+, Poikilocytosis 1+, Anisocytosis 1+, Ovalocytes 1+, Ana Cells 1+ 11/08/17 0500: Sodium Cancelled, Potassium Cancelled, Chloride Cancelled, Carbon Dioxide Cancelled, Anion Gap Cancelled, BUN Cancelled, Creatinine Cancelled, Glucose Cancelled, Calcium Cancelled, Phosphorus Cancelled, Magnesium Cancelled, Total Bilirubin Cancelled, AST Cancelled, ALT Cancelled, Albumin Cancelled, CBC w Diff Cancelled, WBC Cancelled, RBC Cancelled, Hgb Cancelled, Hct Cancelled, MCV Cancelled, MCH Cancelled, MCHC Cancelled, RDW Cancelled, Plt Count Cancelled, MPV Cancelled Assessment/Plan Assessment: 77-year-old male with past medical history off prostate carcinoma declared cancer free, urinary outlet obstruction on chronic indwelling Hummel catheter, multiple UTI, multiple sclerosis not on active treatment, presented with 1 day history of nonbloody diarrhea, and was found to be in severe sepsis, of urological origin, actively resuscitated with IV fluids, and IV antibiotics. Day 1 post admission the patient had an increase in WBC and bands and because of that was changed to meropenem. The patient was initially managed in the ICU, later transferred to [facility] for the following issues: Problem List; # Severe sepsis of urologic origin # E.coli and MRSA Bacteremia # Elevated troponin, secondary to Type II AR/sepsis/DEVONTE # DEVONTE - resolved - Continue Vancomycin day 3, and cefazolin day 4 - S/p Cystoscopy and suprapubic catheter pplacement on 11/07 for bilateral hydroureteronephrosis and bladder distension on CT despite hummel. - RENATE was performed today negative for any vegetations - PICC line placement tomorrow to complete a 2 week course of IV antibiotics - MRI of Lumbosacral spine to r/o any seeding as pt complaining of new onset back pain. - Stress test as an outpatient. DVT prophylaxis: SQ Lovenox Code status: Full code Problem List: 1. Severe sepsis with acute organ dysfunction Pain Ratin Pain Location: Back pain Pain Goal: Remain pain free Pain Plan: Pain pathway Tomorrow's Labs & Rationales: CBC(Sepsis) Bartolo GRAHAM,[facility] 11/08/17 1342: Attending MD Review Statement Attending Statement Attending MD Statement: examined this patient, discuss w/resident/PA/MOLD CUTTING MACHINE OPERATOR, agreed w/resident/PA/MOLD CUTTING MACHINE OPERATOR, reviewed EMR data (avail), discussed with nursing, discussed with case mgmt, reviewed images, amended to note Attending Assessment/Plan: Patient seen and examined, came back from transesophageal echocardiogram procedure. He is complaining of back pain. Vital Signs Date Time Temp Pulse Resp B/P B/P Pulse O2 O2 Flow FiO2 Mean Ox Delivery Rate 11/08 0620 98.5 67 20 144/60 92 Room Air 11/07 2000 92 Room Air Room Air 11/07 1600 98.7 63 16 130/80 93 Room Air on exam; aox3, nad. cv; s1,s2, rrr resp; clear abd: soft, nt, bs+ ext; no edema Laboratory Tests 11/08 11/08 0730 0500 Chemistry Sodium (137 - 145 mmol/L) 142 Cancelled Potassium (3.5 - 5.1 mmol/L) 4.3 Cancelled Chloride (98 - 107 mmol/L) 108 H Cancelled Carbon Dioxide (22 - 30 mmol/L) 29 Cancelled Anion Gap (5 - 16) 5 Cancelled BUN (9 - 20 mg/dL) 16 Cancelled Creatinine (0.7 - 1.2 mg/dL) 0.7 Cancelled Estimated GFR (>60 ml/min) > 60 BUN/Creatinine Ratio (7 - 25 %) 22.9 Glucose Cancelled Calcium Cancelled Phosphorus Cancelled Magnesium Cancelled Total Bilirubin Cancelled AST Cancelled ALT Cancelled Albumin Cancelled Hematology CBC w Diff MAN DIFF ORDERED Cancelled WBC (4.8 - 10.8 /CUMM) 11.5 H Cancelled RBC (4.70 - 6.10 /CUMM) 4.06 L Cancelled Hgb (14.0 - 18.0 G/DL) 11.6 L Cancelled Hct (42 - 52 %) 34.7 L Cancelled MCV (80.0 - 94.0 FL) 85.6 Cancelled MCH (27.0 - 31.0 PG) 28.5 Cancelled MCHC (33.0 - 37.0 G/DL) 33.3 Cancelled RDW (11.5 - 14.5 %) 16.8 H Cancelled Plt Count (130 - 400 /CUMM) 110 L Cancelled MPV (7.4 - 10.4 FL) 8.1 Cancelled Gran % (42.2 - 75.2 %) 89.0 H Lymphocytes % (20.5 - 51.1 %) 6.9 L Monocytes % (1.7 - 9.3 %) 2.8 Eosinophils % (0 - 5 %) 1.2 Basophils % (0.0 - 2.0 %) 0.1 Absolute Granulocytes (1.4 - 6.5 /CUMM) 10.2 H Segmented Neutrophils (42.2 - 75.2 %) 80 H Band Neutrophils (0.0 - 5.0 %) 8 H Absolute Lymphocytes (1.2 - 3.4 /CUMM) 0.8 L Lymphocytes (20.5 - 51.1 %) 5 L Monocytes (1.7 - 9.3 %) 6 Absolute Monocytes (0.10 - 0.60 /CUMM) 0.3 Eosinophils (0 - 5.0 %) 1 Absolute Eosinophils (0.0 - 0.7 /CUMM) 0.1 Absolute Basophils (0.0 - 0.2 /CUMM) 0 Platelet Estimate (ADEQUATE) DECREASED Polychromasia 1+ Poikilocytosis 1+ Anisocytosis 1+ Ovalocytes 1+ Ana Cells 1+ A/P: 77 y/o M with pmh sig for CA prostate now cancer free, urinary outlet obstruction on chronic indwelling Hummel catheter, multiple sclerosis not on active treatment admitted with sepsis of urologic origin likely related to chronic indwelling catheter with urinary obstruction secondary to nonfunctioning Hummel catheter. Patient also had acute kidney injury on admission likely secondary to obstructive uropathy. He also has MRSA bacteremia. Patient currently getting treated with Vanco and cefazolin. Status post cystoscopy and suprapubic catheter placement yesterday with Dr. Bauman. Status post transesophageal echocardiogram today which is negative for any vegetation or intracardiac shunt. Patient is complaining of back pain. I do not see any history off chronic back pain issues as such although he does have his medical sclerosis. We'll obtain lumbar sacral spine MRI. As discussed with infectious disease, blood cultures have remained negative from November 06 therefore we can proceed with a PICC line. DVT prophylaxis: Heparin subcutaneous. Patient's pain is managed with Percocet
--- NOTE | 2017-11-08 08:24 | Operative Report ---
Operative/Inv Procedure Report Surgery Date: 11/07/17 Name of Procedure: cystoscopy: suprapubic tube insertion Pre-Operative Diagnosis: urinary retention: frequent UTI Post-Operative Diagnosis: same Estimated Blood Loss: scant Surgeon/Undercover Agent: MD Mitul, Dyess-urology Anesthesia: moderate sedation Drains: 18 fr used as spt Complications: none Operative/Procedure Note Note: The patient was taken to the operating room and placed on the OR table in supine position. Timeout was performed, in order to confirm correct:identity, procedure, anesthesia, antibiotics, and other pertinent perioperative information. After adequate anesthesia and antibiotics, the patient was then placed lithotomy stirrups, draped and prepped in the usual surgical fashion. A 22 [place]e cystoscope sheath with a 30 angle lens was then inserted under direct visualization. Upon entering the bladder the bladder was noted to be trabeculated with no evidence of tumor no evidence of stone. The bladder was then distended maximally at this point. A 15 blade knife was to make a stab incision, 1cm long at the midline, approximately 2 cm above the symphysis pubis. This area was infiltrated with 2% lidocaine with epinephrine. A 6 inch 18- gauge needle was inserted perpendicularly at the suprapubic site and I was then able to enter the bladder and aspirate clear fluid. The needle was then removed followed by insertion of the John percutaneous suprapubic obturator, with sheath (20FR). With cystoscopic visualization, the suprapubic trocar and sheath was noted to be in proper place in the bladder. The obturator was removed followed by insertion of an 18 [place] Contreras/10cc catheter into the sheath, which was advanced into the bladder without difficulty. The new suprapubic tube was visible via the cystoscope. The sheath was then peeled off, and the Contreras balloon was inflated with 10 mL of sterile water. With a suprapubic tube in place the bladder was then drained via this suprapubic tube, and the cystoscope was removed. Once the bladder was decompressed, the suprapubic tube was sutured to the skin using 0 silk sutures. The suprapubic tube site was then coated with bacitracin, and covered with sterile gauze. The patient tolerated procedure well was then taken to recovery in satisfactory condition. All sponge needle and instrument count were correct. The patient is to be discharged home with pain medication, and antibiotics. The patient is to follow up in 8 week's time to allow the tract to mature for the first SPT change. Discharge Disposition: PACU CC: Karlos Bauman MD
[2017-11-08 08:31] LABS: ABSOLUTE BASOPHIL COUNT 0 /CUMM (0.0-0.2); ABSOLUTE EOSINOPHIL COUNT 0.1 /CUMM (0.0-0.7); ABSOLUTE GRANULOCYTE CT 10.2 /CUMM (1.4-6.5); ABSOLUTE LYMPH COUNT 0.8 /CUMM (1.2-3.4); ABSOLUTE MONOCYTE COUNT 0.3 /CUMM (0.10-0.60); BASOPHIL % 0.1 % (0.0-2.0); EOSINOPHIL % 1.2 % (0-5); HEMATOCRIT 34.7 % (42-52); MEAN CORPUSCULAR HGB 28.5 PG (27.0-31.0); MEAN CORPUSCULAR HGB CONC 33.3 G/DL (33.0-37.0); MEAN CORPUSCULAR VOLUME 85.6 FL (80.0-94.0); MEAN PLATELET VOLUME 8.1 FL (7.4-10.4); RBC DISTRIBUTION WIDTH 16.8 % (11.5-14.5); RED BLOOD CELL CT 4.06 /CUMM (4.70-6.10); WHITE BLOOD CELL COUNT 11.5 /CUMM (4.8-10.8)
[2017-11-08 09:28] LABS: PLATELET COUNT 110 /CUMM (130-400)
--- NOTE | 2017-11-08 10:58 | PN- Cardiology ---
Subjective Subjective: Patient is resting comfortably this morning with no chest pain or dyspnea. Objective Vital Signs and I&Os Vital Signs Date Time Temp Pulse Resp B/P B/P Pulse O2 O2 Flow FiO2 Mean Ox Delivery Rate 11/09 619 98.5 67 20 144/60 92 Room Air 11/07 2000 92 Room Air Room Air 11/07 1600 98.7 63 16 130/80 93 Room Air Intake & Output 11/08 1600 11/08 0800 11/08 0000 11/07 1600 11/07 0800 11/07 0000 Intake Total 75 520 360 70 360 Output Total 1000 700 600 900 500 Balance -925 -180 -240 -830 -140 Intake, IV 75 100 300 70 Intake, Oral 0 420 60 360 Number 0 0 Bowel Movements Output, Urine 1000 700 600 900 500 Patient 183 lb Weight Physical Exam: General: no apparent distress. Eyes: No obvious scleral icterus. HEENT: No jugular venous distention or abnormal jugular venous pulsations. Cardiovascular: Normal intensity S1/S2. Regular Respiratory: No rales or rhonchi Abdomen: no guarding or rebound tenderness. Musculoskeletal: No clubbing or cyanosis noted Skin: warm Neurologic: Alert Current Medications: Current Medications Sig/Lauren Start time Last Medication Dose Route Stop Time Status Admin Acetaminophen 650 MG Q6P PRN 11/05 1015 AC PO Albuterol Sulfate 3 ML Q6 PRN 11/06 0745 AC INH Baclofen 10 MG TID PRN 11/05 1015 AC 11/06 PO 1303 Cefazolin Sodium 2 GM IQ8 11/06 1200 AC 11/08 N/A 1 UNIT IV 0813 Dextrose/Sodium 1,000 ML ONCE ONE 11/08 06 AC 11/08 Chloride IV 11/08 1919 0515 Fentanyl Citrate 100 MCG .STK-MED ONE 11/07 1418 DC IM 11/07 1419 Heparin Sodium 5,000 UNIT Q8 11/04 2200 AC 11/07 (Porcine) SC 0536 Ibuprofen 600 MG Q6P PRN 11/06 1200 AC 11/07 PO 1151 Insulin Aspart 0 TIDAC 11/07 1700 DC SC Insulin Human Regular 0 Q6 11/08 0600 AC 11/08 SC 0620 Insulin Human Regular 0 Q6 11/07 0600 DC 11/07 SC 1151 Lidocaine 0 .STK-MED ONE 11/08 0947 DC TOP Midazolam HCl 2 MG .STK-MED ONE 11/07 1418 DC IM 11/07 1419 Oxycodone HCl 5 MG Q6P PRN 11/05 1015 AC 11/07 PO 2217 Timolol Maleate 1 GTT DAILY 11/05 0900 AC 11/08 OPH 0813 Vancomycin HCl 1,500 MG Q24H 11/06 1200 AC 11/07 Sodium Chloride 250 ML IV 1150 Results Last 48 Hrs of Labs/Mics: Laboratory Tests 11/08/17 0730: Anion Gap 5, Estimated GFR > 60, BUN/Creatinine Ratio 22.9, CBC w Diff MAN DIFF ORDERED, RBC 4.06 L, MCV 85.6, MCH 28.5, MCHC 33.3, RDW 16.8 H, MPV 8.1, Gran % 89.0 H, Lymphocytes % 6.9 L, Monocytes % 2.8, Eosinophils % 1.2, Basophils % 0.1, Absolute Granulocytes 10.2 H, Segmented Neutrophils 80 H, Band Neutrophils 8 H, Absolute Lymphocytes 0.8 L, Lymphocytes 5 L, Monocytes 6, Absolute Monocytes 0.3, Eosinophils 1, Absolute Eosinophils 0.1, Absolute Basophils 0, Platelet Estimate DECREASED, Polychromasia 1+, Poikilocytosis 1+, Anisocytosis 1+, Ovalocytes 1+, Ana Cells 1+ 11/08/17 0500: Sodium Cancelled, Potassium Cancelled, Chloride Cancelled, Carbon Dioxide Cancelled, Anion Gap Cancelled, BUN Cancelled, Creatinine Cancelled, Glucose Cancelled, Calcium Cancelled, Phosphorus Cancelled, Magnesium Cancelled, Total Bilirubin Cancelled, AST Cancelled, ALT Cancelled, Albumin Cancelled, CBC w Diff Cancelled, WBC Cancelled, RBC Cancelled, Hgb Cancelled, Hct Cancelled, MCV Cancelled, MCH Cancelled, MCHC Cancelled, RDW Cancelled, Plt Count Cancelled, MPV Cancelled 11/07/17 0400: Anion Gap 5, Estimated GFR > 60, Glucose 106 H, Calcium 7.9 L, Phosphorus 2.2 L, Magnesium 2.2, Total Bilirubin 0.4, AST 74 H, ALT 137 H, Albumin 2.2 L, PT 11.2, INR 1.03, APTT 30, CBC w Diff MAN DIFF ORDERED, RBC 4.17 L, MCV 86.7, MCH 28.8, MCHC 33.2, RDW 17.0 H, MPV 8.1, Gran % 93.7 H, Lymphocytes % 2.9 L, Monocytes % 2.8, Eosinophils % 0.6, Basophils % 0, Absolute Granulocytes 16.7 H , Segmented Neutrophils 86 H, Band Neutrophils 10 H, Absolute Lymphocytes 0.5 L, Lymphocytes 2 L, Monocytes 1 L, Absolute Monocytes 0.5, Absolute Eosinophils 0.1, Absolute Basophils 0, Metamyelocytes 1, Platelet Estimate DECREASED, Normocytic RBCs VERIFIED, Normochromic RBCs VERIFIED Recent Imaging Studies: Not on telemetry Hip x-ray No evidence of acute fracture on single view of the right hip. Recent CT scan from 11/04/2017 had shown no acute fracture involving the right hip. RENATE No obvious evidence of vegetations or intracardiac shunt Assessment/Plan Assessment/Plan 1. Sepsis of urologic origin 2. Elevated troponin likely due to sepsis/DEVONTE 3. History of multiple sclerosis 4. Diabetes mellitus 5. Acute kidney injury, improved 6. Bacteremia The patient is doing well and remains hemodynamically stable. Transesophageal echocardiogram was requested to help determine the appropriate course of antibiotics and rule out endocarditis; I performed the transesophageal echocardiogram with no complications and there was no obvious evidence of cardiac vegetations or intracardiac shunt. Cardiology will sign off; please call if any additional questions or concerns. Royce Moe MD [facility] Continue telemetry? Not applicable
--- NOTE | 2017-11-08 11:00 | Proc Note Cardiology ---
Cardiology Procedure Procedure Date: 11/08/17 Cardiology Procedure(s): RENATE Pre-Operative Diagnosis: Bacteremia Post-Operative Diagnosis: Bacteremia Estimated Blood Loss: none Anesthesia: Propofol per anesthesiology Procedure Findings: See full transesophageal echocardiogram report for details. There was no obvious evidence of cardiac vegetations or intracardiac shunt. Royce Moe MD [facility]
--- NOTE | 2017-11-08 12:44 | ECHOCARDIOGRAM REPORT ---
GORDY DUNCAN Age: 77 : Gender: M Exam Date: 11/08/2017 09:59 Exam Location: [facility] Ht (in): 127 Wt (lb): 183 BSA: 2.58 BP: 210 / 110 Ordering Physician: Rikki Haq MD Referring Physician: Rikki Haq MD Technologist: Edu Gibson GERALDINE Room Number: Indications: INFECTIVE ENDOCARDITIS Rhythm: Sinus Technical Quality: Good Medications Propofol administered by Anesthesiology. Ease of Transducer Insertion No Difficulty Complications None. Technical Difficulty None. FINDINGS Left Ventricle Normal global left ventricular size, wall thickness, systolic function with no obvious regional wall motion abnormalities. Left ventricular ejection fraction is estimated at 60 %. Right Ventricle Normal right ventricular size and function. Right Atrium Normal right atrial size. Left Atrium Normal left atrial size. LA Appendage No thrombus detected in the left atrial appendage. IA Septum No shunt by color Doppler or bubble study. Mitral Valve Structurally normal mitral valve. Mild mitral regurgitation. Aortic Valve Structurally normal trileaflet aortic valve. No aortic stenosis. Tricuspid Valve Structurally normal tricuspid valve. Trace tricuspid regurgitation. Unable to estimate the right ventricular systolic pressure. Pulmonic Valve Physiologic pulmonic regurgitation. Structurally normal pulmonic valve. Pericardium No pericardial effusion. Great Vessels Normal size aortic root. CONCLUSIONS Normal global left ventricular size, wall thickness, systolic function with no obvious regional wall motion abnormalities. Left ventricular ejection fraction is estimated at 60 %. Normal right ventricular size and function. No thrombus detected in the left atrial appendage. No shunt by color Doppler or bubble study. No pericardial effusion. Francis Moe M.D. (Electronically Signed) Final Date: 08 November 2017 12:44 MEASUREMENTS (Male / Female) Normal Values
--- NOTE | 2017-11-08 14:39 | PN- Infect Dx ---
Subjective Subjective: Afebrile. He complains of low back pain. Objective Last 24 Hrs of Vital Signs/I&O Vital Signs Date Time Temp Pulse Resp B/P B/P Pulse O2 O2 Flow FiO2 Mean Ox Delivery Rate 11/08 0620 98.5 67 20 144/60 92 Room Air 11/07 2000 92 Room Air Room Air 11/07 1600 98.7 63 16 130/80 93 Room Air Intake & Output 11/08 1600 11/08 0800 11/08 0000 Intake Total 75 520 Output Total 950 1000 700 Balance -950 -925 -180 Intake, IV 75 100 Intake, Oral 0 420 Number 0 Bowel Movements Output, Urine 950 1000 700 Patient 183 lb Weight Physical Exam Other Physical Findings: He appears comfortable in no acute distress Lungs are clear Heart regular rhythm without murmur Abdomen is soft, nontender with positive bowel sounds; suprapubic catheter in place, with dressing intact Neuro bilateral lower extremity weakness Results Last 24 Hours of Lab Results: Laboratory Tests 11/08 11/08 0730 0500 Chemistry Sodium (137 - 145 mmol/L) 142 Cancelled Potassium (3.5 - 5.1 mmol/L) 4.3 Cancelled Chloride (98 - 107 mmol/L) 108 H Cancelled Carbon Dioxide (22 - 30 mmol/L) 29 Cancelled Anion Gap (5 - 16) 5 Cancelled BUN (9 - 20 mg/dL) 16 Cancelled Creatinine (0.7 - 1.2 mg/dL) 0.7 Cancelled Estimated GFR (>60 ml/min) > 60 BUN/Creatinine Ratio (7 - 25 %) 22.9 Glucose Cancelled Calcium Cancelled Phosphorus Cancelled Magnesium Cancelled Total Bilirubin Cancelled AST Cancelled ALT Cancelled Albumin Cancelled Hematology CBC w Diff MAN DIFF ORDERED Cancelled WBC (4.8 - 10.8 /CUMM) 11.5 H Cancelled RBC (4.70 - 6.10 /CUMM) 4.06 L Cancelled Hgb (14.0 - 18.0 G/DL) 11.6 L Cancelled Hct (42 - 52 %) 34.7 L Cancelled MCV (80.0 - 94.0 FL) 85.6 Cancelled MCH (27.0 - 31.0 PG) 28.5 Cancelled MCHC (33.0 - 37.0 G/DL) 33.3 Cancelled RDW (11.5 - 14.5 %) 16.8 H Cancelled Plt Count (130 - 400 /CUMM) 110 L Cancelled MPV (7.4 - 10.4 FL) 8.1 Cancelled Gran % (42.2 - 75.2 %) 89.0 H Lymphocytes % (20.5 - 51.1 %) 6.9 L Monocytes % (1.7 - 9.3 %) 2.8 Eosinophils % (0 - 5 %) 1.2 Basophils % (0.0 - 2.0 %) 0.1 Absolute Granulocytes (1.4 - 6.5 /CUMM) 10.2 H Segmented Neutrophils (42.2 - 75.2 %) 80 H Band Neutrophils (0.0 - 5.0 %) 8 H Absolute Lymphocytes (1.2 - 3.4 /CUMM) 0.8 L Lymphocytes (20.5 - 51.1 %) 5 L Monocytes (1.7 - 9.3 %) 6 Absolute Monocytes (0.10 - 0.60 /CUMM) 0.3 Eosinophils (0 - 5.0 %) 1 Absolute Eosinophils (0.0 - 0.7 /CUMM) 0.1 Absolute Basophils (0.0 - 0.2 /CUMM) 0 Platelet Estimate (ADEQUATE) DECREASED Polychromasia 1+ Poikilocytosis 1+ Anisocytosis 1+ Ovalocytes 1+ Ana Cells 1+ Last 24 Hours of Ilan Results: Blood cultures November 06 negative Recent Imaging Studies: RENATE from this morning no evidence of any vegetations Assessment/Plan ID Impression: Stable, with temperatures remaining normal and white blood cell count and bandemia continuing to decrease, on Vancomycin Day 3 and Cefazolin Day 4 for MRSA/E.coli sepsis, presumably of urologic origin. He underwent placement of a suprapubic cystostomy this morning after his CT scan revealed a markedly distended bladder (despite the Contreras catheter), with bilateral hydroureteronephrosis possibly secondary to this bladder distention. He also underwent a RENATE this morning, because of the isolation of Staph aureus (MRSA) from the blood, which was negative. His complaint of back pain appears to be new and, with the isolation of Staph aureus in the blood, vertebral osteomyelitis should be ruled out. Suggestion: 1. MRI of the lumbosacral spine with contrast 2. Continue Vancomycin and Cefazolin
[2017-11-08 15:11] VITALS: BP 120/80
[2017-11-08 22:09] VITALS: BP 140/80
[2017-11-09 06:00] VITALS: BP 132/58
--- NOTE | 2017-11-09 07:28 | PN- Housestaff ---
Subjective Follow-up For: Sepsis of urological origin Acute kidney injury [resolved] Lactic acidosis [resolved] Bacteremia with gram-negative rods and MRSA on antibiotics Subjective: Patient resting comfortably, reports mild back pain but thinks could be from lying in the bed all day. Deneis any fever/chills. Physical therapy at bedside. Review of Systems Constitutional: Reports: no symptoms. EENTM: Reports: no symptoms. Cardiovascular: Reports: no symptoms. Respiratory: Reports: no symptoms. Gastrointestinal: Reports: no symptoms. Genitourinary: Reports: no symptoms. Musculoskeletal: Reports: back pain. Skin: Reports: no symptoms. Neurological/Psychological: Reports: no symptoms. Hematologic/Endocrine: Reports: no symptoms. Immunologic/Allergic: Reports: no symptoms. Objective Last 24 Hrs of Vital Signs/I&O Vital Signs Date Time Temp Pulse Resp B/P B/P Pulse O2 O2 Flow FiO2 Mean Ox Delivery Rate 11/09 06 98.6 70 18 132/58 93 Room Air 11/09 0000 Room Air 11/08 2209 98.3 63 20 140/80 94 Room Air 11/08 1511 98.2 83 20 120/80 97 Intake & Output 11/09 1600 11/09 0800 11/09 0000 Intake Total 50 Output Total 400 950 Balance -350 -950 Intake, IV 50 Intake, Oral 0 Number 0 Bowel Movements Output, Urine 400 950 Physical Exam General Appearance: Alert, Oriented X3, Cooperative Skin: No Rashes, No Breakdown Cardiovascular: Regular Rate, Normal S1, Normal S2 Lungs: Clear to Auscultation, Normal Air Movement Abdomen: Normal Bowel Sounds, Soft, No Tenderness Extremities: No Clubbing, No Cyanosis, No Edema Current Medications: Current Medications Sig/Lauren Start time Last Medication Dose Route Stop Time Status Admin Acetaminophen 650 MG .STK-MED ONE 11/08 1747 DC PO 11/08 1748 Acetaminophen 650 MG Q6P PRN 11/05 1015 AC 11/08 PO 1806 Albuterol Sulfate 3 ML Q6 PRN 11/06 0745 AC INH Baclofen 10 MG TID PRN 11/05 1015 AC 11/06 PO 1303 Cefazolin Sodium 2 GM IQ8 11/06 1200 AC 11/09 N/A 1 UNIT IV 1005 Dextrose/Sodium 1,000 ML ONCE ONE 11/08 06 DC 11/08 Chloride IV 06/20 1919 0515 Enoxaparin Sodium 40 MG DAILY 11/08 1555 AC 11/09 SC 1008 Heparin Sodium 0 .STK-MED ONE 11/09 0804 DC (Porcine) IV Heparin Sodium 5,000 UNIT Q8 11/04 2200 DC 11/07 (Porcine) SC 0536 Ibuprofen 600 MG Q6P PRN 11/06 1200 AC 11/07 PO 1151 Insulin Aspart 0 TIDAC 11/08 1315 AC 11/09 SC 1251 Lidocaine 0 .STK-MED ONE 11/09 0804 DC .ROUTE Oxycodone HCl 5 MG Q6P PRN 11/05 1015 AC 11/09 PO 1058 Timolol Maleate 1 GTT DAILY 11/05 0900 AC 11/09 OPH 1009 Vancomycin HCl 1,500 MG Q24H 11/06 1200 AC 11/09 Sodium Chloride 250 ML IV 1256 Assessment/Plan Assessment: 77-year-old male with past medical history off prostate carcinoma declared cancer free, urinary outlet obstruction on chronic indwelling Hummel catheter, multiple UTI, multiple sclerosis not on active treatment, presented with 1 day history of nonbloody diarrhea, and was found to be in severe sepsis, of urological origin, actively resuscitated with IV fluids, and IV antibiotics. Day 1 post admission the patient had an increase in WBC and bands and because of that was changed to meropenem. The patient was initially managed in the ICU, later transferred to [facility] for the following issues: Problem List; # Severe sepsis of urologic origin # E.coli and MRSA Bacteremia # Elevated troponin, secondary to Type II AK/sepsis/DEVONTE # DEVONTE - resolved - Continue Vancomycin day 4, and cefazolin day 5 - S/p Cystoscopy and suprapubic catheter pplacement on 11/07 for bilateral hydroureteronephrosis and bladder distension on CT despite hummel. - RENATE was performed on 11/07 negative for any vegetations. - PICC line placed today to complete a 2 week course of IV antibiotics - MRI of Lumbosacral spine to r/o any seeding as pt complaining of new onset back pain - results pensing - Stress test as an outpatient. DVT prophylaxis: ALPS only, D/C Lovenox because of dropping platelet count Code status: Full code Problem List: 1. Sepsis 2. Bacteremia due to methicillin resistant Staphylococcus aureus 3. Bacteremia due to Gram-negative bacteria Pain Ratin Pain Location: Back Pain Pain Goal: Remain pain free Pain Plan: Pain Pathway Tomorrow's Labs & Rationales: CBC(MRSA and E.Coli Bacteremia)
--- NOTE | 2017-11-09 10:28 | INTERVENTIONAL RADIOLOGY RPT ---
CLINICAL HISTORY: This patient is a 77 year old male with a history of infection, who presents to Interventional Radiology for placement of a double lumen PICC for central venous access. PROCEDURES: 1. Real-time ultrasound-guided access into the right basilic vein after documentation of selected vessel patency, and permanent imaging storing in the patient records. 2. Placement of a PICC. PHYSICIANS: Dr. Jeffery Saunders (attending). MEDICATIONS: Lidocaine 1%, 2 mL SQ. CONTRAST: None FLUOROSCOPY TIME: 0.3 minutes DAP: 1100 uGym2 COMPLICATIONS: None ESTIMATED BLOOD LOSS: Scant SPECIMENS: None IMPLANT: 5 Fr Power PICC SITE MARKING: As part of the preprocedure verification policy, a site marking procedure was initiated. Due to the nature the procedure, the insertion site could not be predetermined thus invoking the policy of exemption to site laterality and marking. Insertion site marking was performed in the procedure room in conjunction with imaging confirmation. PROCEDURE NOTE: Informed consent was obtained from the patient prior to the procedure. During this process, the procedure and potential alternatives were explained along with the intended outcome and benefits. The risks of the procedure, including the possibility of an unsuccessful procedure, as well as the risk of not doing the procedure, were discussed. The patient was given the opportunity to ask questions regarding the procedure and appeared competent to make decisions. A signed consent form documenting this discussion was placed in the medical record. A time-out procedure was performed. The patient was placed supine on the fluoroscopy table. Prior to prepping the patient, a limited sonogram of the right arm was performed to choose appropriate access, and this arm was prepped and draped in the usual sterile fashion. All elements of maximal sterile barrier technique followed including use of cap, mask, sterile gown, sterile gloves, a sterile full body drape and hand hygiene. Also followed skin preparation with 2% chlorhexidine for cutaneous antisepsis, and sterile ultrasound preparation with sterile gel and probe cover when applicable. Venous access was achieved into the right basilic vein using ultrasound and fluoroscopic guidance. The 0.018 measuring wire from the PICC was advanced into the cavoatrial junction. The needle was removed and replaced with the peel away sheath. The intravascular length was measured and the catheter was trimmed to the correct length. The inner dilator was removed and the PICC was advanced over the wire into the superior cavoatrial junction. The peel away sheath and wire were removed. The catheter was tested successfully and secured to the skin with its tip in the cavoatrial junction. A spot image was taken. The patient tolerated the procedure well. FINDINGS: 1. Patent right basilic vein. 2. Successful placement of a 5-Fr double lumen PICC that measures 49 cm in length. IMPRESSION: Successful placement of a PICC. PLAN: 1. The patient was stable after the procedure and was transferred to the interventional recovery area. The patient will be transferred back to his medical room. 2. The catheter may be used immediately.
--- NOTE | 2017-11-09 11:13 | PN- Att Addend ---
Attending Addendum Attending Brief Note Patient seen and examined, slightly confused this morning. Came back from PICC line placement. Still complaining of excruciating back pain. Currently on percocet for pain. Vital Signs Date Time Temp Pulse Resp B/P B/P Pulse O2 O2 Flow FiO2 Mean Ox Delivery Rate 11/09 0600 98.6 70 18 132/58 93 Room Air 11/09 0000 Room Air 11/08 2209 98.3 63 20 140/80 94 Room Air 11/08 1511 98.2 83 20 120/80 97 on exam; slightly confused today cv; s1,s2, rrr resp; clear abd: soft, nt, bs+ ext; no edema no labs today. A/P: 77 y/o M with pmh sig for CA prostate now cancer free, urinary outlet obstruction on chronic indwelling Contreras catheter, multiple sclerosis not on active treatment admitted with sepsis of urologic origin likely related to chronic indwelling catheter with urinary obstruction secondary to nonfunctioning Contreras catheter. Patient also had acute kidney injury on admission likely secondary to obstructive uropathy. He also has MRSA bacteremia. LS-spine MRI is ordered for this back pain. We'll follow-up on the results. Patient received a PICC line. He is currently getting vancomycin and cefazolin for MRSA bacteremia as well as Escherichia coli bacteremia and urinary tract infection leading to sepsis. I spoke with patient's who does admit that patient does have confusion off- and-on secondary to his history of MS. He does have a short-term memory loss. Therefore this is likely his baseline. Plan is to follow-up on the MRI and further treatment decisions will be made on that. Continue the rest of the management. PT recommends Rehab. DVtv px; Lovenox. (watch plts)
--- NOTE | 2017-11-09 14:08 | PN- Infect Dx ---
Subjective Subjective: Afebrile. He offers no complaints but apparently had severe back pain this morning. Objective Last 24 Hrs of Vital Signs/I&O Vital Signs Date Time Temp Pulse Resp B/P B/P Pulse O2 O2 Flow FiO2 Mean Ox Delivery Rate 11/09 0600 98.6 70 18 132/58 93 Room Air 11/09 0000 Room Air 11/08 2209 98.3 63 20 140/80 94 Room Air 11/08 1511 98.2 83 20 120/80 97 Intake & Output 11/09 1600 11/09 0800 11/09 0000 Intake Total 50 Output Total 400 950 Balance -350 -950 Intake, IV 50 Intake, Oral 0 Number 0 Bowel Movements Output, Urine 400 950 Physical Exam Other Physical Findings: He appears comfortable in no acute distress Lungs are clear Heart regular rhythm without murmur Abdomen is soft, nontender with positive bowel sounds; suprapubic tube in place Back no CVA tenderness Extremities no cyanosis, clubbing or edema; PICC in place in the right upper extremity Results Last 24 Hours of Lab Results: No labs from today Last 24 Hours of Ilan Results: Blood cultures 2 November 06 negative Assessment/Plan ID Impression: Stable, with temperatures remaining normal and white blood cell count from yesterday further decreased, on Vancomycin Day 4 and Cefazolin Day 5 for MRSA/ E.coli sepsis of urologic origin, status post placement of a suprapubic cystostomy yesterday after his CT scan revealed a markedly distended bladder ( despite the Contreras catheter), with bilateral hydroureteronephrosis, possibly secondary to the bladder distention. His back pain persists and he underwent an MRI of the lumbar spine earlier today to rule out vertebral osteomyelitis/ epidural abscess, particularly given the isolation of Staph aureus in the blood. His RENATE was negative, but the duration of therapy will be determined by the MRI results. Suggestion: 1. Follow-up MRI of the lumbosacral spine 2. Vancomycin trough level with his next dose 3. Continue Vancomycin and Cefazolin
[2017-11-09 14:11] VITALS: BP 140/80
[2017-11-09 15:47] LABS: ABSOLUTE BASOPHIL COUNT 0 /CUMM (0.0-0.2); ABSOLUTE EOSINOPHIL COUNT 0.1 /CUMM (0.0-0.7); ABSOLUTE GRANULOCYTE CT 8.2 /CUMM (1.4-6.5); ABSOLUTE LYMPH COUNT 0.8 /CUMM (1.2-3.4); ABSOLUTE MONOCYTE COUNT 0.9 /CUMM (0.10-0.60); BASOPHIL % 0 % (0.0-2.0); EOSINOPHIL % 0.8 % (0-5); GRANULOCYTE % 82.4 % (42.2-75.2); HEMATOCRIT 33.7 % (42-52); MEAN CORPUSCULAR HGB 28.3 PG (27.0-31.0); MEAN CORPUSCULAR HGB CONC 33.1 G/DL (33.0-37.0); MEAN CORPUSCULAR VOLUME 85.5 FL (80.0-94.0); MEAN PLATELET VOLUME 7.8 FL (7.4-10.4); PLATELET COUNT 155 /CUMM (130-400); RBC DISTRIBUTION WIDTH 16.7 % (11.5-14.5); RED BLOOD CELL CT 3.94 /CUMM (4.70-6.10)
--- NOTE | 2017-11-09 20:25 | MRI REPORT ---
EXAMINATION: MR LUMBAR SPINE WITHOUT CONTRAST CLINICAL INFORMATION: Assess for osteomyelitis of lumbar sacral spine. COMPARISON: CT scan of the abdomen and pelvis 11/04/2017. TECHNIQUE: MRI of the lumbar spine without contrast was obtained using routine sequences. The patient was unable to tolerate the entire exam. Limited sequences were obtained, and no intravenous contrast was administered. FINDINGS: VERTEBRAL BODIES AND PARASPINAL STRUCTURES: There is a levoscoliosis at the thoracolumbar junction. There is multilevel narrowing of intervertebral disc height in the mid in the lower lumbar spine. There are extensive fatty endplate signal changes L2-L3. There are degenerative endplate contour changes, without evidence of edematous signal in the adjacent vertebrae. There are no compression fractures. Vertebral body heights are maintained. Marrow signal is suboptimally assessed due to the limited sequences. The sacroiliac joints are intact. A fatty area is redemonstrated posterior to the left acetabulum, consistent with a small lipoma. A bladder catheter is partially visualized, which may be suprapubic. There is a large left parapelvic cyst, demonstrated on prior imaging. There is susceptibility artifact from prostate gland radiation seeds. CONUS MEDULLARIS AND CAUDA EQUINA: Normal, terminating at the level of L1. The cauda equina nerve roots and filum terminale are suboptimally assessed. SPINAL LEVELS: There are multilevel spondylitic changes with facet arthropathy and posterior disc protrusions at multiple levels. There is no severe central stenosis. The neural foramina are poorly assessed due to technique. IMPRESSION: 1. Suboptimal exam as the patient was unable to tolerate the entire exam. Limited sequences were obtained and no intravenous contrast was administered. 2. There are multilevel spondylitic changes in the lumbar spine, but there is no definite evidence of discitis/osteomyelitis.
[2017-11-09 22:03] VITALS: BP 160/60
[2017-11-10 07:06] VITALS: BP 128/74
--- NOTE | 2017-11-10 07:20 | PN- Housestaff ---
Vikki GRAHAM,[facility] 11/10/17 0720: Subjective Follow-up For: Sepsis of urological origin Bacteremia with gram-negative rods and MRSA on antibiotics Acute kidney injury [resolved] Subjective: patient complainINg of intermittent suprabubic pain and spasms. Also had back pain this morning which resolved. Oriented x [address] and appears pleasantly confused. Review of Systems Constitutional: Reports: no symptoms. EENTM: Reports: no symptoms. Cardiovascular: Reports: no symptoms. Respiratory: Reports: no symptoms. Gastrointestinal: Reports: abdominal pain. Genitourinary: Reports: no symptoms. Musculoskeletal: Reports: back pain. Skin: Reports: no symptoms. Neurological/Psychological: Reports: no symptoms. Hematologic/Endocrine: Reports: no symptoms. Immunologic/Allergic: Reports: no symptoms. Objective Last 24 Hrs of Vital Signs/I&O Vital Signs Date Time Temp Pulse Resp B/P B/P Pulse O2 O2 Flow FiO2 Mean Ox Delivery Rate 11/10 0706 97.5 64 18 128/74 95 Room Air 11/09 2203 98.5 85 20 160/60 94 Room Air 11/09 1438 Room Air Room Air 11/09 1411 99.5 76 20 140/80 92 Intake & Output 11/10 1600 11/10 0800 11/10 0000 Intake Total 50 845 Output Total 1600 650 Balance -1550 195 Intake, IV 50 125 Intake, Oral 720 Number 0 Bowel Movements Output, Urine 1600 650 Physical Exam General Appearance: Alert, Cooperative, No Acute Distress Skin: No Rashes, No Breakdown Cardiovascular: Regular Rate, Normal S1, Normal S2 Lungs: Normal Air Movement Abdomen: Normal Bowel Sounds, Soft, No Tenderness Extremities: No Clubbing, No Cyanosis, No Edema Current Medications: Current Medications Sig/Lauren Start time Last Medication Dose Route Stop Time Status Admin Acetaminophen 650 MG .STK-MED ONE 11/10 0109 DC PO 11/10 0110 Acetaminophen 650 MG .STK-MED ONE 11/09 1349 DC PO 11/09 1350 Acetaminophen 650 MG Q6P PRN 11/05 1015 AC 11/10 PO 0111 Albuterol Sulfate 3 ML Q6 PRN 11/06 0745 AC INH Baclofen 10 MG TID PRN 11/05 1015 AC 11/06 PO 1303 Cefazolin Sodium 2 GM IQ8 11/06 1200 AC 11/09 N/A 1 UNIT IV 2319 Enoxaparin Sodium 40 MG DAILY 11/08 1555 DC 11/09 SC 1008 Ibuprofen 600 MG Q6P PRN 11/06 1200 AC 11/07 PO 1151 Insulin Aspart 0 TIDAC 11/08 1315 AC 11/09 SC 1744 Melatonin 5 MG AT BEDTIME 11/09 2100 DC 11/09 PO 11/09 2101 2146 Oxycodone HCl 5 MG Q6P PRN 11/05 1015 AC 11/10 PO 0657 Timolol Maleate 1 GTT DAILY 11/05 0900 AC 11/09 OPH 1009 Vancomycin HCl 1,500 MG Q24H 11/06 1200 AC 11/09 Sodium Chloride 250 ML IV 1256 Last 24 Hrs of Lab/Ilan Results Last 24 Hrs of Labs/Mics: Laboratory Tests 11/10/17 0645: CBC w Diff Pending, WBC Pending, RBC Pending, Hgb Pending, Hct Pending, MCV Pending, MCH Pending, MCHC Pending, RDW Pending, Plt Count Pending, MPV Pending, Gran % Pending, Lymphocytes % Pending, Monocytes % Pending, Eosinophils % Pending, Basophils % Pending, Absolute Granulocytes Pending, Absolute Lymphocytes Pending, Absolute Monocytes Pending, Absolute Eosinophils Pending, Absolute Basophils Pending, Vancomycin Trough Pending 11/09/17 1510: RBC 3.94 L, MCV 85.5, MCH 28.3, MCHC 33.1, RDW 16.7 H, MPV 7.8, Gran % 82.4 H , Lymphocytes % 7.7 L, Monocytes % 9.1, Eosinophils % 0.8, Basophils % 0, Absolute Granulocytes 8.2 H, Absolute Lymphocytes 0.8 L, Absolute Monocytes 0.9 H, Absolute Eosinophils 0.1, Absolute Basophils 0 Assessment/Plan Assessment: 77-year-old male with past medical history off prostate carcinoma declared cancer free, urinary outlet obstruction on chronic indwelling Hummel catheter, multiple UTI, multiple sclerosis not on active treatment, presented with 1 day history of nonbloody diarrhea, and was found to be in severe sepsis, of urological origin, actively resuscitated with IV fluids, and IV antibiotics. Day 1 post admission the patient had an increase in WBC and bands and because of that was changed to meropenem. The patient was initially managed in the ICU, later transferred to Gen Med for the following issues: Problem List; # Severe sepsis of urologic origin # E.coli and MRSA Bacteremia # Elevated troponin, secondary to Type II WA/sepsis/DEVONTE # DEVONTE - resolved - Continue Vancomycin day 5, Vanc trough this am was 6, will increase the dose to 1gm BID. - Discontinue cefazolin and Start Bactrim. - S/p Cystoscopy and suprapubic catheter pplacement on 11/07 for bilateral hydroureteronephrosis and bladder distension on CT despite hummel. - RENATE was performed on 11/07 negative for any vegetations. - PICC line placed on 11/09 to complete a 2 week course of IV antibiotics - MRI of Lumbosacral spine negative for any osteo but could not be done with contrast. - Stress test as an outpatient. DVT prophylaxis: ALPS only, D/C Lovenox because of dropping platelet count Code status: Full code Problem List: 1. Sepsis 2. Bacteremia due to Gram-negative bacteria 3. Bacteremia due to methicillin resistant Staphylococcus aureus Pain Ratin Pain Location: Abdomen Pain Goal: Remain pain free Pain Plan: Pain pathway Tomorrow's Labs & Rationales: None Bartolo GRAHAMLarisa 11/10/17 1131: Attending MD Review Statement Attending Statement Attending MD Statement: examined this patient, discuss w/resident/PA/RAGMAN, agreed w/resident/PA/RAGMAN, reviewed EMR data (avail), discussed with nursing, discussed with case mgmt, reviewed images, amended to note Attending Assessment/Plan: Patient seen and examined, he still complained of some back pain as well as lower abdominal pain at the site of suprapubic catheter. Patient is ordered Roxicodone and tylenol. MRI LS although not a good quality study but neg for any osteomyelitis. Vital Signs Date Time Temp Pulse Resp B/P B/P Pulse O2 O2 Flow FiO2 Mean Ox Delivery Rate 11/10 0706 97.5 64 18 128/74 95 Room Air 11/09 2203 98.5 85 20 160/60 94 Room Air 11/09 1438 Room Air Room Air 11/09 1411 99.5 76 20 140/80 92 on exam; awake, nad. herpetric looking rash around the mouth. cv; s1,s2, rrr resp; clear abd; soft, nt, bs+ ext; no edema Laboratory Tests 11/10 11/09 0645 1510 Hematology CBC w Diff NO MAN DIFF REQ WBC (4.8 - 10.8 /CUMM) 11.3 H 10.0 RBC (4.70 - 6.10 /CUMM) 3.99 L 3.94 L Hgb (14.0 - 18.0 G/DL) 11.4 L 11.1 L Hct (42 - 52 %) 34.3 L 33.7 L MCV (80.0 - 94.0 FL) 85.9 85.5 MCH (27.0 - 31.0 PG) 28.6 28.3 MCHC (33.0 - 37.0 G/DL) 33.3 33.1 RDW (11.5 - 14.5 %) 17.1 H 16.7 H Plt Count (130 - 400 /CUMM) 168 155 MPV (7.4 - 10.4 FL) 8.1 7.8 Gran % (42.2 - 75.2 %) 83.4 H 82.4 H Lymphocytes % (20.5 - 51.1 %) 9.0 L 7.7 L Monocytes % (1.7 - 9.3 %) 5.8 9.1 Eosinophils % (0 - 5 %) 1.8 0.8 Basophils % (0.0 - 2.0 %) 0 0 Absolute Granulocytes (1.4 - 6.5 /CUMM) 9.4 H 8.2 H Absolute Lymphocytes (1.2 - 3.4 /CUMM) 1.0 L 0.8 L Absolute Monocytes (0.10 - 0.60 /CUMM) 0.7 H 0.9 H Absolute Eosinophils (0.0 - 0.7 /CUMM) 0.2 0.1 Absolute Basophils (0.0 - 0.2 /CUMM) 0 0 Toxicology Vancomycin Trough (10.0 - 20.0 ug/mL) 6.0 L A/P: 77 y/o M with pmh sig for CA prostate now cancer free, urinary outlet obstruction on chronic indwelling Hummel catheter, multiple sclerosis not on active treatment admitted with sepsis of urologic origin likely related to chronic indwelling catheter with urinary obstruction secondary to nonfunctioning Hummel catheter. Patient also had acute kidney injury on admission likely secondary to obstructive uropathy which is resolved. He also has MRSA bacteremia. MRI spine is negative for any osteomyelitis. Discuss with infectious disease. Patient will be discharged on IV vancomycin and another oral antibiotic for the Escherichia coli UTI. Patient has a PICC line. He can apply some topical Valtrax for herpetic looking rash. Continue oxycodone for pain management. Continue the rest of the management. If there is a bed available then patient can be discharged to rehabilitation today.
[2017-11-10 08:17] LABS: ABSOLUTE BASOPHIL COUNT 0 /CUMM (0.0-0.2); ABSOLUTE EOSINOPHIL COUNT 0.2 /CUMM (0.0-0.7); ABSOLUTE GRANULOCYTE CT 9.4 /CUMM (1.4-6.5); ABSOLUTE MONOCYTE COUNT 0.7 /CUMM (0.10-0.60); BASOPHIL % 0 % (0.0-2.0); EOSINOPHIL % 1.8 % (0-5); HEMATOCRIT 34.3 % (42-52); MEAN CORPUSCULAR HGB 28.6 PG (27.0-31.0); MEAN CORPUSCULAR HGB CONC 33.3 G/DL (33.0-37.0); MEAN CORPUSCULAR VOLUME 85.9 FL (80.0-94.0); MEAN PLATELET VOLUME 8.1 FL (7.4-10.4); PLATELET COUNT 168 /CUMM (130-400); RBC DISTRIBUTION WIDTH 17.1 % (11.5-14.5); RED BLOOD CELL CT 3.99 /CUMM (4.70-6.10); WHITE BLOOD CELL COUNT 11.3 /CUMM (4.8-10.8)
--- NOTE | 2017-11-10 09:01 | Patient Discharge Instructions ---
Discharge Instructions General Discharge Information You were seen/treated for: Sepsis of urological origin Bacteremia with gram-negative rods and MRSA Acute kidney injury Watch for these problems: please return to the ER in case of any fever, chills, chest pain or shortness of breath. Special Instructions: Please follow up with your PCP within a week after discharge. Please follow up with your grease and tallow pumper within a week after discharge. You will need a stress test as an outpatient which can be arranged at that time. Please follow up with your Urologist within a week after discharge. Diet Continue normal diet: Yes Recommended Diet: Heart Healthy Activity Full Activity/No Limits: Yes Activity Self Limited: Yes Acute Coronary Syndrome Inclusion Criteria At DC or during hospital stay patient has or had the following: ACS DIAGNOSIS No Discharge Core Measures Meds if any: Prescribed or Continued at Discharge Meds if any: NOT Prescribed or Continued at Discharge Congestive Heart Failure Inclusion Criteria At DC or during hospital stay patient has or had the following: CHF DIAGNOSIS No Discharge Core Measures Meds if any: Prescribed or Continued at Discharge Meds if any: NOT Prescribed or Continued at Discharge Cerebrovascular accident Inclusion Criteria At DC or during hospital stay patient has or had the following: CVA/TIA Diagnosis No Discharge Core Measures Meds if any: Prescribed or Continued at Discharge Meds if any: NOT Prescribed or Continued at Discharge Venous thromboembolism Inclusion Criteria VTE Diagnosis No VTE Type NONE VTE Confirmed by (Test) NONE Discharge Core Measures - Per Current guidelines, there needs to be overlap - treatment for the first 5 days of Warfarin therapy. - If discharged on Warfarin prior to 5 days of - overlap therapy, the patient will need to be - assessed for post discharge needs including - *Post discharge parental anticoagulation - *Warfarin and/or parental anticoagulation education - *Follow up date to check INR post discharge At least 5 days overlap therapy as Inpatient No Meds if any: Prescribed or Continued at Discharge Note: Overlap Therapy is Warfarin and Anticoagulant Meds if any: NOT Prescribed or Continued at Discharge
[2017-11-10 09:48] LABS: GRANULOCYTE % 83.4 % (42.2-75.2)
[2017-11-10] MEDS ORDERED: TYLENOL325 M1 PO (10:00)
[2017-11-10] MEDS ORDERED: OXYCODONE HCL5 M1 PO (10:00)
--- NOTE | 2017-11-10 10:12 | Discharge Summary ---
Visit Information Visit Dates Admission Date: 11/04/17 Discharge Date: 11/10/2017 Hospital Course Course Attending Physician: Larisa Mcfarland MD Primary Care Physician: Jj Franklin MD Consulting Request: Consulting Specialty: Nephrology Hospital Course: This is a 77 yo gentleman with thePMH of prostate ca, urinary obstruction on chronic Contreras catheter, multiple sclerosis not on active treatment who presented with one-day history of non-bloody diarrhea. Patient has been on metformin for type 2 diabetes and recently has not been drinking well and is losing a lot of fluid through diarrhea presenting with an acute kidney injury picture with creatinine of 1.6 from baseline of around 0.9. He had significant lactic acidosis of 6.0 on arrival. Patient blood pressure on arrival was in the lower side 85/56 but per family blood pressure is usually around 100/60 at baseline. Patient has UA with leukocyte estrase and positive nitrites although very few WBC 1-3. Examination of the prostate did not elicit any tenderness and there was soft brown non-bloodstained fecal matters around the anal orifice. The patient was admitted to intensive care unit initially and once stabilized was transferred to the general medicine floor. Sepsis of urologic origin Patient had severe sepsis on presentation with low blood pressure on admission requiring 4 L initially of bolus. He never required pressors. He was seen by infectious disease and put on meropenem as his bcs grew gram-negative rods both in blood and urine and upon sensitivity the gram-negative rods were pansensitive to most antibiotics except ciprofloxacin. TTE, RENATE and MRI spine were negative for seeding or vegetation. His abx were narrowed and total duration set for 2 wks of abx. * PICC line placed * Bactrim DS 1 p.o. every 12 hours and continue for 8 more days (stop Monday, November 18) * Vancomycin to 1 g IV every 12 hours and continue for 9 more days (stop November 19) * Repeat Vancomycin trough level with the 4th dose of his new dosing regimen. Last vanco trough on 11/10 11 am was low so his dose was increased. * Check a CBC, BUN/creatinine and Vancomycin random level next week Acute kidney injury: resolved after fluids * Con't monitor BMP Elevated troponin without symptoms On admission the patient had slight elevated troponin 1.10 with no EKG changes and echo without any WMA. He was seen by building stonecutter Dr. Moe and he recommended the patient to follow with him and have an outpatient stress test. Diabetes mellitus Patient has history of type 2 diabetes mellitus and is on metformin 1000 mg twice a day at home. We held metformin given presentation with DEVONTE on admission. He was kept on insulin sliding scale and sugars were within controlled values. We checked his HbA1c and was 6.5 during the course of the stay meaning that sugar is well controlled. * resume home oral antidiabetic medication Multiple sclerosisPatient has 40 years history of multiple sclerosis. He is not on active treatment or follows up with any specialist for that. The volunteers that the patient at baseline has memory loss which has been ongoing and they're attributing it to the multiple sclerosis. * Patient will need referral to follow up with Dr. Jacinto for his MS Urinary obstruction Patient has history of urinary obstruction status post prostate cancer treatment in 2002 and declared to be cancer free. Has been having an indwelling catheter for the last 8 months and is reported to has had multiple episodes of urinary tract infections. On November 07 his urethra catheter was changed to suprapubic catheter. * Patient should continue to follow with Dr. Bauman for management of his urinary issues. * con't BPH meds Allergies: Coded Allergies: NO KNOWN ALLERGIES (01/16/16) Pertinent Lab Results: Laboratory Tests 11/10/17 0645: CBC w Diff NO MAN DIFF REQ, RBC 3.99 L, MCV 85.9, MCH 28.6, MCHC 33.3, RDW 17.1 H, MPV 8.1, Gran % 83.4 H, Lymphocytes % 9.0 L, Monocytes % 5.8, Eosinophils % 1.8, Basophils % 0, Absolute Granulocytes 9.4 H, Absolute Lymphocytes 1.0 L, Absolute Monocytes 0.7 H, Absolute Eosinophils 0.2, Absolute Basophils 0, Vancomycin Trough 6.0 L 11/09/17 1510: RBC 3.94 L, MCV 85.5, MCH 28.3, MCHC 33.1, RDW 16.7 H, MPV 7.8, Gran % 82.4 H , Lymphocytes % 7.7 L, Monocytes % 9.1, Eosinophils % 0.8, Basophils % 0, Absolute Granulocytes 8.2 H, Absolute Lymphocytes 0.8 L, Absolute Monocytes 0.9 H, Absolute Eosinophils 0.1, Absolute Basophils 0 11/08/17 0730: Anion Gap 5, Estimated GFR > 60, BUN/Creatinine Ratio 22.9, CBC w Diff MAN DIFF ORDERED, RBC 4.06 L, MCV 85.6, MCH 28.5, MCHC 33.3, RDW 16.8 H, MPV 8.1, Gran % 89.0 H, Lymphocytes % 6.9 L, Monocytes % 2.8, Eosinophils % 1.2, Basophils % 0.1, Absolute Granulocytes 10.2 H, Segmented Neutrophils 80 H, Band Neutrophils 8 H, Absolute Lymphocytes 0.8 L, Lymphocytes 5 L, Monocytes 6, Absolute Monocytes 0.3, Eosinophils 1, Absolute Eosinophils 0.1, Absolute Basophils 0, Platelet Estimate DECREASED, Polychromasia 1+, Poikilocytosis 1+, Anisocytosis 1+, Ovalocytes 1+, Barrow Cells 1+ 11/08/17 0500: Sodium Cancelled, Potassium Cancelled, Chloride Cancelled, Carbon Dioxide Cancelled, Anion Gap Cancelled, BUN Cancelled, Creatinine Cancelled, Glucose Cancelled, Calcium Cancelled, Phosphorus Cancelled, Magnesium Cancelled, Total Bilirubin Cancelled, AST Cancelled, ALT Cancelled, Albumin Cancelled, CBC w Diff Cancelled, WBC Cancelled, RBC Cancelled, Hgb Cancelled, Hct Cancelled, MCV Cancelled, MCH Cancelled, MCHC Cancelled, RDW Cancelled, Plt Count Cancelled, MPV Cancelled Disposition Summary Disposition Principal Diagnosis: Sepsis of urologic origin Additional Diagnosis: MRSA bacteremia Discharge Disposition: SNF Discharge Instructions General Discharge Information Code Status: Full Code Patient's Diet: as tolerated Patient's Activity: as toelrated Follow-Up Instructions/Appts: see above Medications at Discharge Discharge Medications: Continue taking these medications: Timolol Maleate (Timolol Maleate) 0.5 % DROPS 1 Drop In the eye DAILY Qty = 5 Tamsulosin HCl (Tamsulosin HCl) 0.4 MG CAP.ER.24H 1 Capsule ORAL TWICE DAILY Qty = 60 Metformin HCl (Metformin HCl) 1,000 MG TABLET 1 Tablet ORAL TWICE DAILY Qty = 180 Linagliptin (Tradjenta) 5 MG TABLET 1 Tablet ORAL DAILY Qty = 30 Finasteride (Finasteride) 5 MG TABLET 1 Tablet ORAL DAILY Qty = 90 Atorvastatin Calcium (Atorvastatin Calcium) 80 MG TABLET 1 Tablet ORAL DAILY Qty = 90 Cholecalciferol (Vitamin D3) 1,000 UNIT TABLET 1 Tablet ORAL DAILY Bethanechol Chloride (Bethanechol Chloride) 25 MG TABLET 0.5 Tablet ORAL TWICE DAILY Baclofen (Baclofen) 10 MG TABLET 1 Tablet ORAL as needed for MUSCLE SPASMS Qty = 60 Cyanocobalamin (Vitamin B-12) 1,000 MCG TABLET 1 Tablet ORAL DAILY Qty = 30 Phenazopyridine HCl (Pyridium) 200 MG TABLET 1 Tablet ORAL THREE TIMES DAILY Qty = 9 Start taking the following new medications: Oxycodone HCl (Oxycodone HCl) 5 MG TABLET 1 Tablet ORAL EVERY SIX HOURS NEEDED as needed for PAIN SCALE 7-10 ( SEVERE) Qty = 15 No Refills Acetaminophen (Tylenol) 325 MG TABLET 2 Tablet ORAL EVERY SIX HOURS NEEDED as needed for PAIN SCALE 1-3 (MILD) Qty = 30 No Refills Sulfamethoxazole/Trimethoprim (Sulfamethoxazole-Tmp Ds Tablet) 800 MG-160 MG TABLET 1 Tablet ORAL TWICE DAILY Qty = 16 No Refills Vancomycin/0.9 % Sod Chloride (Vanco 1 Gram/150 Ml-0.9% NaCl) 1 GRAM/150 ML PLAST..BAG 1 Gram INTRAVEN TWICE DAILY Qty = 18 No Refills Docosanol (Abreva) 10 % CREAM..G. 1 Application On the skin 5 TIMES A DA Qty = 1 Refills = 2 Comments: Apply ointment for 10 days as prescribed. If no improvement then contact PCP for further instruction. Copies To: Jj Franklin MD
--- NOTE | 2017-11-10 12:07 | PN- Infect Dx ---
Subjective Subjective: Afebrile. He continues to complain of back spasms. Objective Last 24 Hrs of Vital Signs/I&O Vital Signs Date Time Temp Pulse Resp B/P B/P Pulse O2 O2 Flow FiO2 Mean Ox Delivery Rate 11/10 0706 97.5 64 18 128/74 95 Room Air 11/09 2203 98.5 85 20 160/60 94 Room Air 11/09 1438 Room Air Room Air 11/09 1411 99.5 76 20 140/80 92 Intake & Output 11/10 1600 11/10 0800 11/10 0000 Intake Total 50 845 Output Total 1600 650 Balance -1550 195 Intake, IV 50 125 Intake, Oral 720 Number 0 Bowel Movements Output, Urine 1600 650 Physical Exam Other Physical Findings: He appears otherwise comfortable in no acute distress HEENT perioral papules Abdomen is mildly distended, nontender with positive bowel sounds; suprapubic tube with no inflammation at the site Extremities PICC in the right upper extremity with no inflammation at the site Results Last 24 Hours of Lab Results: Laboratory Tests 11/10 11/09 0645 1510 Hematology CBC w Diff NO MAN DIFF REQ WBC (4.8 - 10.8 /CUMM) 11.3 H 10.0 RBC (4.70 - 6.10 /CUMM) 3.99 L 3.94 L Hgb (14.0 - 18.0 G/DL) 11.4 L 11.1 L Hct (42 - 52 %) 34.3 L 33.7 L MCV (80.0 - 94.0 FL) 85.9 85.5 MCH (27.0 - 31.0 PG) 28.6 28.3 MCHC (33.0 - 37.0 G/DL) 33.3 33.1 RDW (11.5 - 14.5 %) 17.1 H 16.7 H Plt Count (130 - 400 /CUMM) 168 155 MPV (7.4 - 10.4 FL) 8.1 7.8 Gran % (42.2 - 75.2 %) 83.4 H 82.4 H Lymphocytes % (20.5 - 51.1 %) 9.0 L 7.7 L Monocytes % (1.7 - 9.3 %) 5.8 9.1 Eosinophils % (0 - 5 %) 1.8 0.8 Basophils % (0.0 - 2.0 %) 0 0 Absolute Granulocytes (1.4 - 6.5 /CUMM) 9.4 H 8.2 H Absolute Lymphocytes (1.2 - 3.4 /CUMM) 1.0 L 0.8 L Absolute Monocytes (0.10 - 0.60 /CUMM) 0.7 H 0.9 H Absolute Eosinophils (0.0 - 0.7 /CUMM) 0.2 0.1 Absolute Basophils (0.0 - 0.2 /CUMM) 0 0 Toxicology Vancomycin Trough (10.0 - 20.0 ug/mL) 6.0 L Last 24 Hours of Ilan Results: Blood cultures 2 November 06 remain negative Recent Imaging Studies: MRI of the lumbar spine November 09 no definite evidence of discitis or osteomyelitis Assessment/Plan ID Impression: Stable, with temperatures remaining normal and white blood cell count essentially normal, on Vancomycin Day 5 and Cefazolin Day 6 for MRSA/E.coli sepsis of urologic origin, status post placement of a suprapubic cystostomy 2 days ago for bilateral hydroureteronephrosis, possibly secondary to the bladder distention seen on the CT scan. His back pain is felt to be secondary to spasms related to his multiple sclerosis, with the MRI of the lumbar spine negative for osteomyelitis or discitis. As his RENATE was negative he should only require a 2 week course of Vancomycin along with the 2 week course of gram- negative coverage for the E. coli. His Vancomycin "trough" level appears to be a random level and is, therefore, of unclear significance, but as it is already low, his dose should be increased. His perioral lesions, which are apparently pruritic, may be herpetic and can be treated symptomatically. Suggestion: 1. Topical/symptomatic treatment for his perioral lesions 2. Discontinue Cefazolin 3. Begin Bactrim DS 1 p.o. every 12 hours and continue for 8 more days 4. Increase Vancomycin to 1 g IV every 12 hours and continue for 9 more days 5. Repeat Vancomycin trough level with the 4th dose of his new dosing regimen 6. Would check a CBC, BUN/creatinine and Vancomycin random level next week
[2017-11-10] MEDS ORDERED: VANCO 1 GR1 GM/150 M IV (14:35)
[2017-11-10] MEDS ORDERED: SULFAMETHOXAZO1 EAC1 PO (14:35)
[2017-11-10] MEDS ORDERED: ABREVA2 GM TOP (14:50)
[2017-11-10 14:53] VITALS: BP 130/60
--- NOTE | 2017-11-10 15:43 | PN- Urology ---
Surgical Brief Attending Note Brief Attending Note: PT OVERALL STABLE AND COMFORTABLE: VSS , CURRENTLY ON VANCO PER DR PARR FOR MRSA: SPT SITE C/D/I HEALING WELL WITH CLEAR URINE OUTPUT.
[2017-11-10 22:09] VITALS: BP 130/80
[2017-11-11 05:16] LABS: ABSOLUTE BASOPHIL COUNT 0 /CUMM (0.0-0.2); ABSOLUTE EOSINOPHIL COUNT 0.1 /CUMM (0.0-0.7); ABSOLUTE GRANULOCYTE CT 12.2 /CUMM (1.4-6.5); ABSOLUTE MONOCYTE COUNT 1.2 /CUMM (0.10-0.60); BASOPHIL % 0 % (0.0-2.0); EOSINOPHIL % 0.5 % (0-5); GRANULOCYTE % 84.7 % (42.2-75.2); HEMATOCRIT 35.2 % (42-52); MEAN CORPUSCULAR HGB 28.3 PG (27.0-31.0); MEAN CORPUSCULAR HGB CONC 32.8 G/DL (33.0-37.0); MEAN CORPUSCULAR VOLUME 86.3 FL (80.0-94.0); MEAN PLATELET VOLUME 7.9 FL (7.4-10.4); PLATELET COUNT 230 /CUMM (130-400); RBC DISTRIBUTION WIDTH 16.4 % (11.5-14.5); RED BLOOD CELL CT 4.08 /CUMM (4.70-6.10); WHITE BLOOD CELL COUNT 14.4 /CUMM (4.8-10.8)
[2017-11-11 05:54] VITALS: BP 146/70
--- NOTE | 2017-11-11 12:06 | PN- Housestaff ---
Vikki GRAHAM,[facility] 11/11/17 1206: Subjective Follow-up For: Sepsis of urological origin Bacteremia with gram-negative rods and MRSA on antibiotics Subjective: Patient says that it hurts all over his body, especially his feet. Had a few bowel movements yesterday after he was started on a bowel regimen, and his abdominal pain was relieved afterwards. Denies any fever/chills, nausea or vomiting. Review of Systems Constitutional: Reports: no symptoms. EENTM: Reports: no symptoms. Cardiovascular: Reports: no symptoms. Respiratory: Reports: no symptoms. Gastrointestinal: Reports: no symptoms. Genitourinary: Reports: no symptoms. Musculoskeletal: Reports: joint pain, muscle pain. Skin: Reports: no symptoms. Neurological/Psychological: Reports: no symptoms. Hematologic/Endocrine: Reports: no symptoms. Immunologic/Allergic: Reports: no symptoms. Objective Last 24 Hrs of Vital Signs/I&O Vital Signs Date Time Temp Pulse Resp B/P B/P Pulse O2 O2 Flow FiO2 Mean Ox Delivery Rate 11/11 1401 98.9 65 20 150/65 94 Room Air 11/11 0554 98.1 83 20 146/70 93 Room Air 11/10 2209 98.1 89 20 130/80 97 Room Air 11/10 1453 98.9 72 20 130/60 94 Intake & Output 11/11 1600 11/11 0800 11/11 0000 Intake Total 120 480 Output Total 300 750 Balance -180 -270 Intake, Oral 120 480 Output, Urine 300 750 Physical Exam General Appearance: Alert, Cooperative, No Acute Distress Skin: No Rashes, No Breakdown Cardiovascular: Regular Rate, Normal S1, Normal S2 Lungs: Normal Air Movement Abdomen: Normal Bowel Sounds, Soft, mild suprapubic tenderness Extremities: No Clubbing, No Cyanosis, Bilateral ankle and feet swelling Current Medications: Current Medications Sig/Lauren Start time Last Medication Dose Route Stop Time Status Admin Acetaminophen 650 MG Q6P PRN 11/05 1015 AC 11/11 PO 0832 Acyclovir 1 NATALIA Q5 11/10 1200 AC 11/11 TOP 1248 Albuterol Sulfate 3 ML Q6 PRN 11/06 0745 AC INH Baclofen 10 MG TID PRN 11/05 1015 AC 11/10 PO 1645 Ibuprofen 600 MG Q6P PRN 11/06 1200 AC 11/07 PO 1151 Insulin Aspart 0 TIDAC 11/08 1315 AC 11/11 NM 1248 Oxycodone HCl 5 MG Q6P PRN 11/05 1015 AC 11/11 PO 0610 Polyethylene Glycol 17 GM DAILY PRN 11/10 1315 AC 11/10 PO 1421 Senna 187 MG AT BEDTIME PRN 11/10 1315 AC 11/10 PO 1421 Timolol Maleate 1 GTT DAILY 11/05 0900 AC 11/11 OPH 0836 Trimethoprim/ 1 TAB BID 11/10 2100 AC 11/11 Sulfamethoxazole PO 1103 Vancomycin HCl 1,000 MG Q12H 11/10 1400 AC 11/11 Sodium Chloride 250 ML IV 1428 Last 24 Hrs of Lab/Ilan Results Last 24 Hrs of Labs/Mics: Laboratory Tests 11/11/17 1240: Anion Gap 7, Estimated GFR > 60, BUN/Creatinine Ratio 21.3, Total Bilirubin 0.4, Direct Bilirubin 0.1, AST 39, ALT 48, Alkaline Phosphatase 104, Total Protein 4.8 L, Albumin 2.2 L, CBC w Diff MAN DIFF ORDERED, RBC 4.01 L, MCV 85.9, MCH 28.2, MCHC 32.9 L, RDW 16.8 H, MPV 7.8, Gran % 85.2 H, Lymphocytes % 6.2 L, Monocytes % 7.7, Eosinophils % 0.9, Basophils % 0, Absolute Granulocytes 12.5 H , Segmented Neutrophils 82 H, Band Neutrophils 6 H, Absolute Lymphocytes 0.9 L, Lymphocytes 6 L, Monocytes 6, Absolute Monocytes 1.1 H, Absolute Eosinophils 0.1, Absolute Basophils 0, Platelet Estimate VERIFIED BY SMEAR, Polychromasia 1+, Poikilocytosis 1+, Anisocytosis 1+, Ovalocytes 1+, Ana Cells 1+ 11/11/17 0500: CBC w Diff MAN DIFF ORDERED, RBC 4.08 L, MCV 86.3, MCH 28.3, MCHC 32.8 L, RDW 16.4 H, MPV 7.9, Gran % 84.7 H, Lymphocytes % 6.6 L, Monocytes % 8.2, Eosinophils % 0.5, Basophils % 0, Absolute Granulocytes 12.2 H, Segmented Neutrophils 76 H, Band Neutrophils 9 H, Absolute Lymphocytes 1.0 L, Lymphocytes 7 L, Monocytes 8, Absolute Monocytes 1.2 H, Absolute Eosinophils 0.1, Absolute Basophils 0, Platelet Estimate ADEQUATE, Hypochromic-Microcytic 1+ , Anisocytosis 1+, [place] Cells FEW Microbiology 11/11 1240 URINE ROUT: Urine Culture - RECD Assessment/Plan Assessment: 77-year-old male with past medical history off prostate carcinoma declared cancer free, urinary outlet obstruction on chronic indwelling Hummel catheter, multiple UTI, multiple sclerosis not on active treatment, presented with 1 day history of nonbloody diarrhea, and was found to be in severe sepsis, of urological origin, actively resuscitated with IV fluids, and IV antibiotics. Day 1 post admission the patient had an increase in WBC and bands and because of that was changed to meropenem. The patient was initially managed in the ICU, later transferred to [facility] for the following issues: Problem List; # Severe sepsis of urologic origin # E.coli and MRSA Bacteremia # Elevated troponin, secondary to Type II [place]/sepsis/DEVONTE # DEVONTE - resolved - Continue Vancomycin day 6 and Bactrim, day 7. - WBC count elevated to 14.4 this morning, remains afebrile. Will repeat CBC, BMP, liver function tests and urine culture. - S/p Cystoscopy and suprapubic catheter pplacement on 11/07 for bilateral hydroureteronephrosis and bladder distension on CT despite hummel. - RENATE was performed on 11/07 negative for any vegetations. - PICC line placed on 11/09 to complete a 2 week course of IV antibiotics - MRI of Lumbosacral spine negative for any osteo but could not be done with contrast. - Stress test as an outpatient. DVT prophylaxis: ALPS only, D/C Lovenox because of dropping platelet count Code status: Full code Problem List: 1. Sepsis 2. Bacteremia due to Gram-negative bacteria 3. Bacteremia due to methicillin resistant Staphylococcus aureus Pain Ratin Pain Location: Feet Pain Goal: Remain pain free Pain Plan: Pain Pathway Tomorrow's Labs & Rationales: None Consulting Request: Consulting Specialty: Nephrology Larisa Mcfarland MD 11/11/17 1303: Attending MD Review Statement Attending Statement Attending MD Statement: examined this patient, discuss w/resident/PA/BUSINESS SERVICES COORDINATOR, agreed w/resident/PA/BUSINESS SERVICES COORDINATOR, reviewed EMR data (avail), discussed with nursing, discussed with case mgmt, reviewed images, amended to note Attending Assessment/Plan: Patient seen and examined, denies any complaints. Patient had bowel movement. She reports that there is no documentation. He was waiting for the bowel movement for him to get discharged to rehabilitation.. This morning he has some leukocytosis. Repeat the blood work. No other evidence of any infection. Patient currently on vancomycin and Bactrim per infectious disease. He has a bed available. If his white count is stable then he connected discharged to short-term rehabilitation today.
[2017-11-11 13:09] LABS: ABSOLUTE BASOPHIL COUNT 0 /CUMM (0.0-0.2); ABSOLUTE EOSINOPHIL COUNT 0.1 /CUMM (0.0-0.7); ABSOLUTE GRANULOCYTE CT 12.5 /CUMM (1.4-6.5); ABSOLUTE LYMPH COUNT 0.9 /CUMM (1.2-3.4); ABSOLUTE MONOCYTE COUNT 1.1 /CUMM (0.10-0.60); BASOPHIL % 0 % (0.0-2.0); EOSINOPHIL % 0.9 % (0-5); GRANULOCYTE % 85.2 % (42.2-75.2); HEMATOCRIT 34.4 % (42-52); MEAN CORPUSCULAR HGB 28.2 PG (27.0-31.0); MEAN CORPUSCULAR HGB CONC 32.9 G/DL (33.0-37.0); MEAN CORPUSCULAR VOLUME 85.9 FL (80.0-94.0); MEAN PLATELET VOLUME 7.8 FL (7.4-10.4); PLATELET COUNT 239 /CUMM (130-400); RBC DISTRIBUTION WIDTH 16.8 % (11.5-14.5); RED BLOOD CELL CT 4.01 /CUMM (4.70-6.10); WHITE BLOOD CELL COUNT 14.7 /CUMM (4.8-10.8)
[2017-11-11 14:01] VITALS: BP 150/65
[2017-11-11 16:47] VITALS: BP 150/65
== END 2017-11-11 18:22 | DRG 698 ==
LOC: ERH 12:45 → CRI 16:08 → ERHI 16:08 → ENRESERV 17:22 → ENTRNSPT 19:41 → CRI 19:50 → CMPTRNSPT 11-07 07:07 → DELTRNSPT 11-07 15:39 → ENTRNSPT 11-07 15:54 → EDTRNSPTSTS 11-07 16:04 → EDTRNSPT 11-07 16:04 → CMPTRNSPT 11-07 16:29 → 2NA 11-07 21:41
PROVIDERS: Dermatology; Internal Medicine; Physician Assistant Medical; Preventive Medicine Public Health & General Preventive Medicine; Student in an Organized Health Care Education/Training Program
PROC: 0T2BX0Z Change Drainage Device in Bladder, External Approach (ICD-10-PCS; 2017-11-07)
PROC: B24BZZ4 Ultrasonography of Heart with Aorta, Transesophageal (ICD-10-PCS; principal; 2017-11-08)
DX: T83.518A Infection and inflammatory reaction due to other urinary catheter, initial encounter (principal); R65.21 Severe sepsis with septic shock; A41.51 Sepsis due to Escherichia coli [E. coli]; I21.A1 Myocardial infarction type 2; N39.0 Urinary tract infection, site not specified; N13.30 Unspecified hydronephrosis; N17.9 Acute kidney failure, unspecified; E87.2 Acidosis; N13.8 Other obstructive and reflux uropathy; E11.9 Type 2 diabetes mellitus without complications; N40.1 Benign prostatic hyperplasia with lower urinary tract symptoms; R19.7 Diarrhea, unspecified; Y73.8 Miscellaneous gastroenterology and urology devices associated with adverse incidents, not elsewhere classified; B95.62 Methicillin resistant Staphylococcus aureus infection as the cause of diseases classified elsewhere; Z79.84 Long term (current) use of oral hypoglycemic drugs; G35 Multiple sclerosis; E78.5 Hyperlipidemia, unspecified; Z85.46 Personal history of malignant neoplasm of prostate; M19.90 Unspecified osteoarthritis, unspecified site; R74.0 Nonspecific elevation of levels of transaminase and lactic acid dehydrogenase [LDH]
CPT/HCPCS: 2NAP; 72148; 87184; CCU; 36415; 36592; 71045; 73501; 74176; 77001; 80307; 81001; 82436; 87015; 87040; 87045; 87086; 87147; 87899; 87899-59; 93005; 93010; 93306; 93325; 96361; 96374; 97110-GO; 97161-GP; 97530-GO; C1769; EXP; J0131; J0690; J0696; J0713; J1642; J1644; J1650; J1815; J2001; J2185; J3370; J3490; J7040; J7042